=== PATIENT | female | born 1960 | race Caucasian/White ===

== ENCOUNTER 2017-08-01 13:07 | Inpatient (IN) | payer MEDICARE ==
--- OUTSIDE RECORDS SUMMARY | 2017-08-01 13:10 | XMS REPORT | Clinical Summary ---
:1960 Author Organization [facility] Address [address] [place] [address] Care Team Providers Name Role Phone Angela Dee MD Primary Care Provider Allergies No Known Allergies Current Medications Prescription Sig. Disp. Refills Start Date End Date Status aspirin (ECOTRIN) 81 Take 81 mg by Active MG enteric coated mouth daily. tablet omeprazole Take 20 mg by Active (PriLOSEC) 20 MG mouth daily. capsule magnesium oxide Take 400 mg Active (MAG-OX) 400 mg by mouth tablet daily. albuterol (PROAIR Inhale 2 18 g 0 09/03/2016 Active HFA,PROVENTIL puffs every 6 HFA,VENTOLIN HFA) 90 (six) hours mcg/actuation as needed for inhaler wheezing. furosemide (LASIX) Take 1 tablet 60 tablet 11 09/03/2016 Active 40 mg tablet (40 mg total) 8 by mouth 2 (two) times a day. venlafaxine XR Take 1 6 capsule 0 09/17/2016 Active (EFFEXOR-XR) 150 MG capsule (150 24 hr mg total) by capsuleIndications: mouth daily. Heart failure, unspecified heart failure chronicity, unspecified heart failure type sildenafil (REVATIO) Take 1 tablet 270 tablet 3 10/15/2016 Active 20 mg tablet (20 mg total) 8 by mouth 3 (three) times a day. budesonide-formotero Inhale 2 1 Inhaler 6 10/31/2016 Active l (SYMBICORT) puffs 2 (two) 160-4.5 times a day. mcg/actuation inhaler ELIQUIS 5 mg tablet TAKE 1 TABLET 60 tablet 2 01/13/2017 Active BY MOUTH TWICE A DAY pantoprazole Take 20 mg by Active (PROTONIX) 20 MG EC mouth daily. tablet LORATADINE (CLARITIN Take by Active ORAL) mouth. linaclotide Take 145 mcg Active (LINZESS) 145 mcg by mouth capsule daily before breakfast. furosemide (LASIX) Take 1 tablet 60 tablet 6 05/16/2017 Active 80 mg tablet (80 mg total) 9 by mouth 2 (two) times a day. venlafaxine XR Take 150 mg Discontinued (EFFEXOR-XR) 150 MG by mouth 7 24 hr capsule daily. budesonide-formotero Inhale 2 Discontinued l (SYMBICORT) puffs 2 (two) 7 160-4.5 times a day mcg/actuation as needed. inhaler albuterol (PROVENTIL Inhale 2 Discontinued HFA;VENTOLIN HFA) 90 puffs every 6 7 mcg/actuation (six) hours inhaler as needed for wheezing. spironolactone Take 4 30 tablet 11 06/15/2016 Discontinued (ALDACTONE) 25 MG tablets (100 7 tablet mg total) by mouth daily. acetaZOLAMIDE Take 250 mg 1 04/05/2016 Discontinued (DIAMOX) 250 MG by mouth once 7 tablet daily. losartan (COZAAR) 50 Take 50 mg by Discontinued MG tablet mouth daily. 7 furosemide (LASIX) Take 1 tablet 60 tablet 11 07/17/2016 Discontinued 40 mg tablet (40 mg total) 7 by mouth 2 (two) times a day. predniSONE Take 2.5 mg Discontinued (DELTASONE) 5 mg by mouth 7 tablet daily. furosemide (LASIX) Take 3 270 tablet 2 08/01/2016 Discontinued 20 mg tablet tablets (60 7 mg total) by mouth 3 (three) times a day for 30 days. hydrALAZINE Take 1 tablet 90 tablet 2 08/01/2016 Discontinued (APRESOLINE) 100 MG (100 mg 7 tablet total) by mouth every 8 (eight) hours for 30 days. isosorbide dinitrate Take 1 tablet 90 tablet 2 08/01/2016 Discontinued (ISORDIL) 20 MG (20 mg total) 7 tablet by mouth 3 (three) times a day for 30 days. potassium chloride Take 2 120 capsule 0 08/01/2016 Discontinued (MICRO-K) 10 MEQ CR capsules (20 7 capsule mEq total) by mouth 2 (two) times a day for 30 days. sacubitril-valsartan Take 1 tablet 60 tablet 2 08/01/2016 Discontinued (ENTRESTO) 24-26 mg by mouth 2 7 tablet per tablet (two) times a day for 30 days. furosemide (LASIX) Take 3 270 tablet 2 08/01/2016 Discontinued 20 mg tablet tablets (60 7 mg total) by mouth 2 (two) times a day for 30 days. venlafaxine XR Take 1 6 capsule 0 08/10/2016 Discontinued (EFFEXOR-XR) 150 MG capsule (150 7 24 hr capsule mg total) by mouth daily. apixaban (ELIQUIS) 5 Take 1 tablet 60 tablet 0 08/31/2016 Discontinued mg tablet (5 mg total) 7 by mouth 2 (two) times a day for 30 days. furosemide (LASIX) Take 1 tablet 30 tablet 0 08/28/2016 Discontinued 40 mg tablet (40 mg total) 7 by mouth daily for 30 days. spironolactone Take 1 tablet 30 tablet 0 08/28/2016 (ALDACTONE) 50 MG (50 mg total) 7 tablet by mouth daily for 30 days. sildenafil (REVATIO) Take 1 tablet 90 tablet 0 08/27/2016 Discontinued 20 mg tablet (20 mg total) 7 by mouth every 8 (eight) hours for 30 days. apixaban (ELIQUIS) 5 Take 1 tablet 60 tablet 0 08/31/2016 mg tablet (5 mg total) 7 by mouth 2 (two) times a day for 30 days. predniSONE Take 0.5 15 tablet 9 12/27/2016 (DELTASONE) 5 mg tablets (2.5 7 tablet mg total) by mouth daily for 30 days. amoxicillin-pot Take 1 tablet 28 tablet 0 03/16/2017 clavulanate by mouth 2 7 (AUGMENTIN) 875-125 (two) times a mg per tablet day for 14 days. furosemide (LASIX) Take 1 tablet 60 tablet 0 03/16/2017 Discontinued 80 mg tablet (80 mg total) 8 by mouth 2 (two) times a day. Active Problems Problem Noted Date Abdominal distension 03/16/2017 Overview: This is something new and has happened in the last couple two weeks She says it started with some knots appearing her her groin area and then increased with some redness on the upper mid thigh. Her belly also became big and now its big to an extent that its going to cause her distension and pain There is some associated erythema, which is blanching On exam: little warm to touch, but no actual skin break down Percussion note is dull in the lower abdomen Last Assessment & Plan: I am concerned she may have cellulitis of her belly. Its red with slight tenderness I am going to get CT abdomen and pelvis today If there is fluid, then it needs to be drained and she will have to stop her eliquis Will also check, cbc, cmp, bnp, UA and blood culture Sending her a prescription of augmentin 875 mg BID I have informed her, depending on her belly findings, I'll call her and decide if she needs to be admitted or not. She will come to ER if she needs any further intervention DVT (deep venous thrombosis) 09/23/2016 Overview: Recently diagnosed in August 2016 during the hospitalization Currently on eliquis 5 mg BID Last Assessment & Plan: She is taking eliquis No bleeding issues Will continue same Will continue it at least for six months Chronic diastolic heart failure 09/23/2016 Overview: Now stable BP is still high today Eating no salt diet Last Assessment & Plan: Need better BP control I would defer to Dr Peck Asked her to do BP charting and discuss with Dr Peck Chronic kidney disease, stage II (mild) 09/23/2016 Overview: Has likely diuretic induced kidney injury Seems to be recovering She will need some amount of lasix and aldactone Last Assessment & Plan: Renal condition is improving with treatment. Continue current treatment regimen. Fluid restriction. Weight loss. Monitor daily weight. Regular aerobic exercise. Stop smoking. Continue current medications. 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 This first presented as lung nodule which was followed for years. In 2011 she was referred to Dr Zurita at [facility]. She performed a RLL lobectomy. Biopsy confirmed carcinoid and also DIPNECH. Last Assessment & Plan: Currently stable, seeing oncologist locally in [place] and no interventions are planned at present Neuroendocrine neoplasm of lung 12/18/2015 Overview: Patient was diagnosed with DIPNECH, which may be the cause of her progressive obstructive lung function. She is taking inhalers and that is help. Last Assessment & Plan: Stable, need to continue surveillance follow up with oncologist Chronic respiratory failure with hypoxia 12/18/2015 Overview: On supplemental oxygen at 3L/min. Has documented hypercarbia as well but compensated. She has poor exercise capacity. Most of the time, she is just sitting. Not doing much activity In November 2015, she had sob and was admitted in a local hospital in [place] She was managed in lines with CHF with diuresis and CPAP support Last Assessment & Plan: Using CPAP, along with oxygen Will recommend to continue the same SANG on CPAP 12/01/2015 Overview: On CPAP at home. Using it religiously. She has been taking CPAP for years but I am not sure if the pressure settings are adequate. Not sure if worsening PH may be cause of the recent excerbation Last Assessment & Plan: Continue CPAP, will oxygen Will help with her BP and heart failure Pulmonary hypertension 12/01/2015 Overview: Complicated patient. Has DIPNECH, DHF and PH. She was extensively evaluated. She was seen by Dr Peck for DHF. She was last seen in September 2016. Right after hospitalization. She was intubated with resp failure and acute PE. Aggressively diuresed. Had mild PH with no gradient, Dr Peck suggested to add sildenafil. Sh kailee felt better after sildenafil. States that her breathing was better. She was supposed to have a repeat RHC close to October but then not followed up She is taking Sildenafil 20 mg TID. She says for the last couple of weeks she started having abdominal distension. Also noticed some lesions- knots coming in her thigh area, which became hard and warm t o touch. Her belly distension kept on getting worse. Went to see PCP who said its lymphedema and suggested her to do compression. She says she has marked edema and swelling in her legs and her private areas. Says she was not able to wear underwear because of the way it looks. She was told to see her launch check out. She has gained 35 lbs since her last visit She is on lasix 40 mg BID, aldactone 25 mg daily. She is also on eliquis since last August after the episode of acute PE. No fever, having chills. She is also having some cough, occasional phlegm. She says she has noticed redness on her belly and it feels warm to touch. Denies any diarrhea Below is her hemodynamics from her latest cath from August 2016 Last Assessment & Plan: She is actually doing better on Sildenafil. Tolerating it better and says her breathing is better. However, today she is short of breath due to massive distension of her belly. She is unsure why she has that. Her legs are not that swollen though. Regarding PH, will leave her alone on the same medications See below for abdominal distension She is having some cough as well, getting a CT Chest and also starting her on augmentin She needs to increase her lasix to 80 mg BID for now and see me back in 2 weeks Encounters Date Type Specialty Care Team Description 07/11/2017 Telephone Cardiology esther Conroy RN appointment 06/13/2017 Documentation Pulmonology Aristeo, faxed medical records CHERELLE Tipton 05/16/2017 Refill Pulmonology Chavo Cespedes MD 04/13/2017 Telephone Cardiology Helder, Prior Authorization SIA Quiñones 03/25/2017 Transcribe Orders Access Coy PHT (pulmonary hypertension) ( Primary Dx); MD Chavo Acute embolism and thrombosis of deep vein of right lower extremity; Obstructive sleep apnea syndrome 03/16/2017 Office Visit Pulmonology Coy Pulmonary hypertension (Primary Dx); MD Chavo Acute deep vein thrombosis (DVT) of right lower extremity, unspecified vein; SANG on CPAP; Abdominal distension 03/16/2017 Telephone Transplant Edson Barragan, Prior Authorization SIA 03/16/2017 Orders Only Pulmonology Haney, Chronic diastolic heart failure; SIA Hassan Pulmonary hypertension; Acute deep vein thrombosis (DVT) of right lower extremity, unspecified vein; SANG on CPAP; Chronic respiratory failure with hypoxia; Neuroendocrine neoplasm of lung; Chronic kidney disease, stage II (mild) 03/01/2017 Telephone Cardiology Bertrand Pendleton MA 01/12/2017 Refill Cardiology Shant Najera MD 12/27/2016 Orders Only Pulmonology Chavo Cespedes MD 11/10/2016 Orders Only Pulmonology Sonya Haney MA 11/05/2016 Telephone Pulmonology Trice Ariza MD 10/31/2016 Orders Only Pulmonology Chavo Cespedes MD 10/27/2016 Orders Only Pulmonology Kvng Haney MA hypertension (Primary Dx) 10/18/2016 Telephone Cardiology Liv Med Reffahad Osuna MD (Spironolactone 50 mg ) 10/13/2016 Telephone Pulmonology Roney Wilson, CHERELLE 10/01/2016 Refill Cardiothoracic Yury Heredia MD 10/01/2016 Orders Only Pulmonology Kvng Cespedes MD hypertension (Primary Dx) 09/23/2016 Office Visit Pulmonology Coy Pulmonary hypertension (Primary Dx); MD Chavo Acute deep vein thrombosis (DVT) of right lower extremity, unspecified vein; Chronic respiratory failure with hypoxia; Neuroendocrine neoplasm of lung; Chronic diastolic heart failure; SANG on CPAP; Chronic kidney disease, stage II (mild) 09/17/2016 Office Visit Cardiology Kvng Peck hypertension (Primary Dx ); MD Thao Chronic diastolic heart failure; SANG on CPAP 09/17/2016 Telephone Cardiology Marciano Gordon MD 09/16/2016 Documentation Cardiology Prior Laurence Keating (Eliquis) VICTOR HUGO Kline 09/10/2016 Orders Only Pulmonology Saeed Alberts, CHERELLE 09/03/2016 Office Visit Cardiology Pulmonary hypertension; Chronic diastolic heart failure 09/03/2016 Hospital Encounter Transplant Opal Small on chronic MD Jorge diastolic heart failure 09/03/2016 Documentation Cardiology Prior Laurence Keating LVN (Sildenafil ) 09/03/2016 Orders Only Pulmonology Rajtak SOB (shortness of Cooper, breath) (Primary Dx) Afsaneh, RT 09/01/2016 Refill Cardiothoracic Yury Heredia Surgery MD Jonnathan 09/01/2016 Documentation Cardiology Shant Keating Refill Eliud, [employer] SERVICES 09/01/2016 Orders Only Cardiology Martha, Opal on chronic CHERELLE Parson diastolic heart failure (Primary Dx) 08/31/2016 Refill Cardiothoracic Yury Herdeia MD 08/27/2016 Patient Outreach Quality Sharon Tejeda RN 08/19/2016 Procedure Pass Procedural Cardiology 08/19/2016 Surgery Procedural Cardiology Marciano Gordon right heart cath MD Brandon [[id number] (CPT)] 08/18/2016 Hospital Encounter Cardiology Marciano Gordon Pulmonary - MD Brandon hypertension (Primary 08/27/2016 Dx) 08/10/2016 Refill Pulmonology Eliud Keating, COORDIN[employer] REHABILITATION SERVICES 08/09/2016 Orders Only Transplant Creamer, Chronic diastolic CHERELLE Pack heart failure (Primary Dx) 08/01/2016 Patient Outreach Quality Nusrat Ng RN 07/27/2016 Hospital Encounter Cardiology Kvng Peck - MD Thao hypertension 08/01/2016 Temo Najera MD after 07/31/2016 Immunizations Name Dates Previously Given Next Due Pneumococcal Conjugate 13-Valent 08/01/2016 Family History Medical History Relation Name Comments Lung cancer Brother Emphysema Father Cancer Paternal Aunt Anuerysm Sister Breast cancer Sister Relation Name Status Comments Brother Father Mother Alive Paternal Aunt Sister Social History Tobacco Use Types Packs/Day Years Used Date Never Smoker Alcohol Use Drinks/Week oz/Week Comments No Sex Assigned at Date Recorded Not on file Last Filed Vital Signs Vital Sign Reading Time Taken Blood Pressure 149/69 03/16/2017 9:32 AM [employer] Pulse 110 03/16/2017 9:32 AM [employer] Temperature 36.6 C (97.8 F) 03/16/2017 9:32 AM [employer] Respiratory Rate 12 09/23/2016 11:28 AM CDT Oxygen Saturation 82% 03/16/2017 9:32 AM [employer] Inhaled Oxygen Concentration - - Weight 169 kg (373 lb) 03/16/2017 9:32 AM [employer] Height 157.5 cm (5' 2") 03/16/2017 9:32 AM [employer] Body Mass Index 68.22 03/16/2017 9:32 AM [employer] Plan of Treatment Date Type Specialty Care Team Description 11/11/2017 Office Visit Cardiology Thao Peck MD [address], [address] [place] [address] Health Maintenance Due Date Last Done Comments PAP SMEAR 1981 COLONOSCOPY 2010 MAMMOGRAM 2010 INFLUENZA VACCINE 12/07/2016 02/27/2015, 02/14/2014, 03/06/2013 Procedures Procedure Name Priority Date/Time Associated Comments Diagnosis CV RIGHT HEART CATH Routine 08/19/2016 6:14 Results for this PM CDT procedure are in the results section. ECHOCARDIOGRAM 2D STAT 08/19/2016 8:41 Results for this LIMITED AM CDT procedure are in the results section. after 07/31/2016 Results Urinalysis screen and microscopy, with reflex to culture (03/16/2017 12:56 PM) Only the most recent of2 resultswithin the time period is included. Component Value Ref Range Specimen site Clean catch Color, UA Yellow Appearance, UA Cloudy Specific gravity, UA 1.020 1.001 - 1.035 pH, UA 6.0 5.0 - 8.5 Protein, UA 2+ (A) Negative Glucose, UA Negative Negative Ketones, UA Negative Negative Bilirubin, UA Negative Negative Blood, UA Negative Negative Nitrite, UA Negative Negative Urobilinogen, UA <2.0 <2.0 Leukocyte esterase, UA Large (A) Negative Epithelial cells, UA >20 /HPF WBC, UA 2 0 - 4 /HPF RBC, UA 43 (H) 0 - 2 /HPF Bacteria, UA Few None seen Yeast, UA Moderate (A) Yeast with pseudohyphae, UA None seen Hyaline casts, UA 12 /LPF Specimen Performing Laboratory Urine [facility] DEPARTMENT OF PATHOLOGY AND GENOMIC MEDICINE [address] [place] [id number] Gram stain (03/16/2017 12:56 PM)Only the most recent of2 resultswithin the time period is included. Component Value Ref Range Gram stain result Rare WBC's Few Budding yeast, pseudohyphae present Many Gram positive rods Comment: Specimen Information Specimen Source: Urine Specimen Site: See UA Specimen Performing Laboratory Urine [facility] DEPARTMENT OF PATHOLOGY AND GENOMIC MEDICINE [address] [place] [address]. [place] [address] Urine culture (03/16/2017 12:56 PM)Only the most recent of2 resultswithin the time period is included. Component Value Ref Range Urine culture isolate Gram negative rods 10-1 cfu/ml (A) Comment: Specimen Information Specimen Source: Urine Specimen Site: See UA Urine culture isolate Mixed Gram positive germania >10-5 cfu/ml (A) Specimen Performing Laboratory Urine [facility] DEPARTMENT OF PATHOLOGY AND [address] [address] Smear review (03/16/2017 10:52 AM) Component Value Ref Range Platelet slide review Facundo adequate Anisocytosis Moderate Polychromasia Moderate Spherocytes Occasional Ovalocytes Moderate Enlarged platelets Moderate (A) Giant platelets Occasional Specimen Performing Laboratory [facility] PATHOLOGY [address] [address] Narrative CO2 result called to and read back by Anita Arteaga/[facility] 03/16/201713:12 by CK. Estimated GFR (03/16/2017 10:52 AM)Only the most recent of15 resultswithin the time period is included. Component Value Ref Range GFR Non Af Amer 57 (A) mL/min/1.73 m2 GFR Af Amer 69 mL/min/1.73 m2 Comment: Chronic kidney disease: <60 mL/min/1.73m2 Kidney failure: <15 mL/min/1.73m2 The estimated GFR is calculated from the IDMS-traceable Modification of Diet in Renal Disease Equation. The accuracy of the calculation is poor when the creatinine is normal. Calculated values >90 mL/min/1.73m2 are not reported. This equation has not been validated in children (<18 years), women, the elderly (>70 years), or ethnic groups other than Caucasians and Americans. Specimen Performing Laboratory Plasma specimen [facility] DEPARTMENT OF PATHOLOGY AND [address] [address] Sedimentation rate (03/16/2017 10:52 AM) Component Value Ref Range Sedimentation rate 17 0 - 20 mm/hr Specimen Performing Laboratory Blood [facility] OF PATHOLOGY AND [facility] MEDICINE [address] [place] [address] Narrative CO2 result called to and read back by Anita Arteaga/[facility] 03/16/201713:12 by CK. CBC with platelet and differential (03/16/2017 10:52 AM)Only the most recent of11 resultswithin the time period is included. Component Value Ref Range WBC 8.01 4.50 - 11.00 k/uL RBC 4.12 (L) 4.20 - 5.50 m/uL HGB 8.4 (L) 12.0 - 16.0 g/dL HCT 31.0 (L) 37.0 - 47.0 % MCV 75.2 (L) 82.0 - 100.0 fL MCH 20.4 (L) 27.0 - 34.0 pg MCHC 27.1 (L) 31.0 - 37.0 g/dL RDW - SD 49.5 37.0 - 55.0 fL MPV 10.6 8.8 - 13.2 fL Platelet count 233 150 - 400 k/uL Nucleated RBC 0.00 /100 WBC Neutrophils 76.3 (H) 39.0 - 69.0 % Lymphocytes 9.6 (L) 25.0 - 45.0 % Monocytes 10.6 (H) 0.0 - 10.0 % Eosinophils 2.4 0.0 - 5.0 % Basophils 0.5 0.0 - 1.0 % Immature granulocytes 0.6Comment: "Immature granulocytes" 0.0 - 1.0 % (promyelocytes, myelocytes, metamyelocytes) Specimen Performing Laboratory Blood [facility] DEPARTMENT OF PATHOLOGY AND GENOMIC MEDICINE [address] [place] [address] B natriuretic peptide (03/16/2017 10:52 AM)Only the most recent of3 resultswithin the time period is included. Component Value Ref Range BNP 432 (H) 0 - 100 pg/mL Specimen Performing Laboratory Blood [facility] DEPARTMENT OF PATHOLOGY AND GENOMIC MEDICINE [address] [place] [address] Narrative CO2 result called to and read back by Anita Arteaga/[facility] Lung [place] 03/16/201713:12 by CK. Magnesium level (03/16/2017 10:52 AM)Only the most recent of14 resultswithin the time period is included. Component Value Ref Range Magnesium 1.3 (L) 1.6 - 2.6 mg/dL Specimen Performing Laboratory Plasma specimen [facility] DEPARTMENT OF PATHOLOGY AND GENOMIC MEDICINE [address] [place] [address] Comprehensive metabolic panel (03/16/2017 10:52 AM)Only the most recent of3 resultswithin the time period is included. Component Value Ref Range Sodium 141 135 - 148 mEq/L Potassium 3.2 (L) 3.5 - 5.0 mEq/L Chloride 88 (L) 98 - 112 mEq/L CO2 44 (HH) 24 - 31 mEq/L Anion gap 9 7 - 15 mEq/L Comment: Starting from August , anion gap calculation no longer incorporates potassium. Please note the change. BUN 23 (H) 6 - 20 mg/dL Creatinine 1.0 (H) 0.5 - 0.9 mg/dL Glucose 123 (H) 65 - 99 mg/dL Calcium 8.9 8.3 - 10.2 mg/dL Protein 6.7 6.3 - 8.3 g/dL Comment: [place] 4.6-7.0 g/dL 1 week 4.4-7.6 g/dL 7 months-1year5.1-7.3 g/dL 1-2 years5.6-7.5 g/dL >3 years6.0-8.0 g/dL 18-150 6.3-8.3 g/dL Albumin 3.1 (L) 3.5 - 5.0 g/dL A/G ratio 0.9 0.7 - 3.8 Alkaline phosphatase 97 35 - 104 U/L AST 22 10 - 35 U/L ALT 16 5 - 50 U/L Total bilirubin 0.5 0.0 - 1.2 mg/dL Specimen Performing Laboratory Plasma specimen [facility] DEPARTMENT OF PATHOLOGY AND GENOMIC MEDICINE [address] [place] [id number] Basic metabolic panel (09/15/2016 9:37 AM)Only the most recent of13 resultswithin the time period is included. Component Value Ref Range Glucose 150 (H) 65 - 99 mg/dL Comment: Fasting reference interval For someone without known diabetes, a glucose value >125 mg/dL indicates that they may have diabetes and this should be confirmed with a follow-up test. BUN, whole blood 16 7 - 25 mg/dL Creatinine 1.05 0.50 - 1.05 mg/dL Comment: For patients >49 years of age, the reference limit for Creatinine is approximately 13% higher for people identified as -Palauan. EGFR Non-Afr. [place] 60 > OR=60 mL/min/1.73m2 EGFR 69 > OR=60 mL/min/1.73m2 BUN/creatinine ratio NOT APPLICABLE 6 - 22 (calc) Sodium 142 135 - 146 mmol/L Potassium 3.8 3.5 - 5.3 mmol/L Chloride 92 (L) 98 - 110 mmol/L CO2 44 (H) 20 - 31 mmol/L Calcium 9.3 8.6 - 10.4 mg/dL Specimen Performing Laboratory Blood [facility] Narrative FASTING:YES Cardiac MRI heart fx only noncontrast (08/27/2016 2:32 PM) Specimen Performing Laboratory [facility] [address] [place] [address] Narrative [facility] CMR Report Patient Patient Name: ADOLPH MORTENSEN Patient : 1960 Scan Date:2016-08-27 13:24:03 Finalized and signed by Lenard Weaver M.D. (uid:20) 22:05: 04. SUMMARY ====== ======== CMR study aborted early by the patient due to worsening of shortness of breath. However, the following observations can be made: 1.Normal cardiac chamber sizes. Systolic and diastolic septal flattening consistent with RV pressure and volume overload. 2.Normal LV and severely depressed RV systolic function(LVEF 55%, RVEF 23%). 3.NO delayed enhancement imaging performed (no contrast given due to renal failure) 4.Valves assessment not performed. 5.Thoracic aorta is of normal caliber without aneurysm or dissection. Dilated main PA (3.4 cm), RPA (2.2 cm), LPA (2.4 cm) consistent with pulmonary hypertension. CORE EXAM ====== ======== MEASUREMENTS VOLUMETRIC ANALYSIS . . || LV| Reference| RV | Reference| +------+ + + + + | EDV| 147.7 ml|(134-215) | 182.4 ml |(127-215) | | ESV| 65.6 ml |(33-79) | 138.9 ml |(26-88) | | CO | 12.48 L/min || 6.61 L/min || | MASS | 95.9 g|(115-186) ||| | SV | 82.1 ml |(88-148)| 43.5 ml|(86-143)| | EF | 55.59 % |(141-184) | 23.85 %|(131-189) | '------+ + + + ' HEART RATE:152 bpm LV DIMENSIONS WALL THICKNESS - ANTEROSEPTAL:0.8 cm WALL THICKNESS - INFEROLATERAL:0.7 cm LV SAFIA:5.1 cm LV ESD:3.6 cm LA DIMENSIONS (LV SYSTOLE) DIAMETER:4.6 cm AREA - 2 CHAMBER:26 cm^2 LENGTH - 2 CHAMBER:6.6 cm AREA - 4 CHAMBER:28 cm^2 LENGTH - 4 CHAMBER:6 cm VOLUME:103.13 ml AORTIC ROOT DIMENSIONS DIAMETER - ANNULUS:1.8 cm DIAMETER - SINUS OF VALSALVA:3 cm DIAMETER - SINOTUBULAR JUNCTION:2.1 cm AORTIC ROOT SIZE:Normal CONDENSED SUMMARY LV:Normal Wall Thickness. Cavity Size is Normal. No Mass/Thrombus. RV:Normal Wall Thickness. Contractility is SEVERE GLOBALLY DECREASED. Cavity Size is Normal. No Mass/Thrombus. No Pacemaker/Defibrillator Wire. IVS:DIASTOLIC FLATTENING (RV VOLUME OVERLOAD), SYSTOLIC FLATTENING (RV PRESSURE OVERLOAD). LA:Cavity Size is Normal. No Mass/Thrombus. IAS:LIPOMATOUS HYPERTROPHY. RA:Cavity Size is Normal. No Mass/Thrombus. No Additional Findings. No Pacemaker/Defibrillator Wire. PER:Normal Pericardium. No Effusion. 17 SEGMENT . ------ ------. | LV Segments| Wall Motion| Hyperenhancement | Stress Perfusion | Interpretation | + + + + +---- ------ ------+ | Base Anterior| Normal/Hyper ||| | | Base Anteroseptal| Normal/Hyper ||| | | Base Inferoseptal| Normal/Hyper ||| | | Base Inferior| Normal/Hyper ||| | | Base Inferolateral | Normal/Hyper ||| | | Base Anterolateral | Normal/Hyper ||| | | Mid Anterior | Normal/Hyper ||| | | Mid Anteroseptal | Normal/Hyper ||| | | Mid Inferoseptal | Normal/Hyper ||| | | Mid Inferior | Normal/Hyper ||| | | Mid Inferolateral| Normal/Hyper ||| | | Mid Anterolateral| Normal/Hyper ||| | | Apical Anterior| Normal/Hyper ||| | | Apical Septal| Normal/Hyper ||| | | Apical Inferior| Normal/Hyper ||| | | Apical Lateral | Normal/Hyper ||| | | [place] | Normal/Hyper ||| | + + + + +---- ------ ------+ | RV Segments| Wall Motion| Hyperenhancement | Stress Perfusion | Interpretation | + + + + +---- ------ ------+ | RV Basal Anterior| Severe Hypo|| | | | RV Basal Inferior| Severe Hypo|| | | | RV Mid | Severe Hypo|| | | | RV Apical| Severe Hypo|| | | ' + + + +---- ------ ------' VASCULAR ====== ======== SCAN INFO ====== ======== GENERAL SEDATION SEDATION USED?:No CONTRAST AGENT SERUM CREATININE:1.6 sCr GFR:35.57 ml/min/1.73m^2 FEMALE:Yes OR BLACK:No CREATININE DATE:2016-08-27 00:00:00 FERAHEME ADMINISTERED:90 mg LAB RESULT HEMATOCRIT LEVEL:33.7 % HEMATOCRIT DATE:2016-08-27 00:00:00 VITALS HEIGHT:62 in HEIGHT:157.48 cm BODY WEIGHT:339.6 lbs BODY WEIGHT:154.04 kgs BSA::2.39 m^2 SYSTOLIC BP:149 mmHg DIASTOLIC BP:68 mmHg HEART RATE:107 BPM HEART RHYTHM:Other DESCRIBE HEART RHYTHM::Sinus Tachycardia SETUP TYPE:Clinical INPATIENT:Yes LOCATION:[facility] INCOMPLETE SCAN:Yes REASON FOR INCOMPLETE SCAN:Patient not able to complete scan REASON(S) FOR SCAN:Abnormal Echo REFERRING PHYSICIAN:1) Marciano Gordon M.D.ATTENDING PHYSICIAN:Lenard Weaver MD TECHNOLOGIST:Graham Tate RT ASSISTANTS:1) Aretha POWELL 2) Preston Bowens 3) Ismael GAMBLE Patient Account [id number] CPT Codes 54886 ICD10 Codes I42.9, [ , ]R00.0, [ , ]R06.00 Procedure Note Interface, Radiology Results In - 08/27/2016 10:06 PM CDT [facility] CMR Report Patient Patient Name: ADOLPH MORTENSEN Patient : 1960 Scan Date: 2016-08-27 13:24:03 Finalized and signed by Lenard Weaver M.D. (uid:20) 22:05:04. SUMMARY CMR study aborted early by the patient due to worsening of shortness of breath. However, the following observations can be made: 1. Normal cardiac chamber sizes. Systolic and diastolic septal flattening consistent with RV pressure and volume overload. 2. Normal LV and severely depressed RV systolic function (LVEF 55%, RVEF 23%) . 3. NO delayed enhancement imaging performed (no contrast given due to renal failure) 4. Valves assessment not performed. 5. Thoracic aorta is of normal caliber without aneurysm or dissection. Dilated main PA (3.4 cm), RPA (2.2 cm), LPA (2.4 cm) consistent with pulmonary hypertension. CORE EXAM MEASUREMENTS VOLUMETRIC ANALYSIS . . | | LV | Reference | RV | Reference | +------+ + + + + | EDV | 147.7 ml | (134-215) | 182.4 ml | (127-215) | | ESV | 65.6 ml | (33-79) | 138.9 ml | (26-88) | | CO | 12.48 L/min | | 6.61 L/min | | | MASS | 95.9 g | (115-186) | | | | SV | 82.1 ml | (88-148) | 43.5 ml | (86-143) | | EF | 55.59 % | (141-184) | 23.85 % | (131-189) | '------+ + + + ' HEART RATE: 152 bpm LV DIMENSIONS WALL THICKNESS - ANTEROSEPTAL: 0.8 cm WALL THICKNESS - INFEROLATERAL: 0.7 cm LV SAFIA: 5.1 cm LV ESD: 3.6 cm LA DIMENSIONS (LV SYSTOLE) DIAMETER: 4.6 cm AREA - 2 CHAMBER: 26 cm^2 LENGTH - 2 CHAMBER: 6.6 cm AREA - 4 CHAMBER: 28 cm^2 LENGTH - 4 CHAMBER: 6 cm VOLUME: 103.13 ml AORTIC ROOT DIMENSIONS DIAMETER - ANNULUS: 1.8 cm DIAMETER - SINUS OF VALSALVA: 3 cm DIAMETER - SINOTUBULAR JUNCTION: 2.1 cm AORTIC ROOT SIZE: Normal CONDENSED SUMMARY LV:Normal Wall Thickness. Cavity Size is Normal. No Mass/Thrombus. RV:Normal Wall Thickness. Contractility is SEVERE GLOBALLY DECREASED. Cavity Size is Normal. No Mass/Thrombus. No Pacemaker/Defibrillator Wire. IVS:DIASTOLIC FLATTENING (RV VOLUME OVERLOAD), SYSTOLIC FLATTENING (RV PRESSURE OVERLOAD). LA:Cavity Size is Normal. No Mass/Thrombus. IAS:LIPOMATOUS HYPERTROPHY. RA:Cavity Size is Normal. No Mass/Thrombus. No Additional Findings. No Pacemaker/Defibrillator Wire. PER:Normal Pericardium. No Effusion. 17 SEGMENT . . | LV Segments | Wall Motion | Hyperenhancement | Stress Perfusion | Interpretation | + + + + +---- + | Base Anterior | Normal/Hyper | | | | | Base Anteroseptal | Normal/Hyper | | | | | Base Inferoseptal | Normal/Hyper | | | | | Base Inferior | Normal/Hyper | | | | | Base Inferolateral | Normal/Hyper | | | | | Base Anterolateral | Normal/Hyper | | | | | Mid Anterior | Normal/Hyper | | | | | Mid Anteroseptal | Normal/Hyper | | | | | Mid Inferoseptal | Normal/Hyper | | | | | Mid Inferior | Normal/Hyper | | | | | Mid Inferolateral | Normal/Hyper | | | | | Mid Anterolateral | Normal/Hyper | | | | | Apical Anterior | Normal/Hyper | | | | | Apical Septal | Normal/Hyper | | | | | Apical Inferior | Normal/Hyper | | | | | Apical Lateral | Normal/Hyper | | | | | [place] | Normal/Hyper | | | | + + + + +---- + | RV Segments | Wall Motion | Hyperenhancement | Stress Perfusion | Interpretation | + + + + +---- + | RV Basal Anterior | Severe Hypo | | | | | RV Basal Inferior | Severe Hypo | | | | | RV Mid | Severe Hypo | | | | | RV Apical | Severe Hypo | | | | ' + + + +---- ' VASCULAR SCAN INFO GENERAL SEDATION SEDATION USED?: No CONTRAST AGENT SERUM CREATININE: 1.6 sCr GFR: 35.57 ml/min/1.73m^2 FEMALE: Yes OR BLACK: No CREATININE DATE: 2016-08-27 00:00:00 ALEJO ADMINISTERED: 90 mg LAB RESULT HEMATOCRIT LEVEL: 33.7 % HEMATOCRIT DATE: 2016-08-27 00:00:00 VITALS HEIGHT: 62 in HEIGHT: 157.48 cm BODY WEIGHT: 339.6 lbs BODY WEIGHT: 154.04 kgs BSA:: 2.39 m^2 SYSTOLIC BP: 149 mmHg DIASTOLIC BP: 68 mmHg HEART RATE: 107 BPM HEART RHYTHM: Other DESCRIBE HEART RHYTHM:: Sinus Tachycardia SETUP TYPE: Clinical INPATIENT: Yes LOCATION: [facility] INCOMPLETE SCAN: Yes REASON FOR INCOMPLETE SCAN: Patient not able to complete scan REASON(S) FOR SCAN: Abnormal Echo REFERRING PHYSICIAN: 1) Marciano Gordon M.D. ATTENDING PHYSICIAN : Lenard Weaver MD TECHNOLOGIST: Graham Tate RT ASSISTANTS: 1) Aretha POWELL 2) Preston Bowens 3) Ismael Crump MD BILLING Patient Account [id number] CPT Codes 45511 ICD10 Codes I42.9, [ , ]R00.0, [ , ]R06.00 POC glucose (08/27/2016 11:17 AM)Only the most recent of36 resultswithin the time period is included. Component Value Ref Range POC glucose 127 (H) 65 - 99 mg/dL Comment: [facility] Notified RN Meter ID: [id number] Word Processor: Jazmine Clayton Specimen Performing Laboratory [facility] DEPARTMENT OF PATHOLOGY AND GENOMIC MEDICINE [address] [place] [address] Prothrombin time with INR (08/24/2016 11:30 AM)Only the most recent of2 resultswithin the time period is included. Component Value Ref Range Prothrombin time 13.2 12.0 - 15.0 sec INR 1.0 Comment: The International Normalized Ratio (INR) is a therapeutic monitoring tool for patients who are stable on oral anticoagulant therapy. An INR of 2.0-3.0 is suggested for deep vein thrombosis/pulmonary embolism. Specimen Performing Laboratory Blood [facility] DEPARTMENT OF PATHOLOGY AND GENOMIC MEDICINE [address] [place] [address] Anti Xa, unfractionated (08/24/2016 11:30 AM)Only the most recent of8 resultswithin the time period is included. Component Value Ref Range Anti Xa, unfractionated 0.20 (L)Comment: Therapeutic Range: 0.30 - 0.30 - 0.70 U/mL 0.70 U/mL Specimen Performing Laboratory Blood [facility] DEPARTMENT OF PATHOLOGY AND [address] [address] XR Chest 1 Vw Portable (08/24/2016 10:59 AM)Only the most recent of5 resultswithin the time period is included. Specimen [facility] [address] [place] [address] Narrative EXAMINATION:XR CHEST 1 VW PORTABLE CLINICAL HISTORY:Pneumonia COMPARISON:August 21 IMPRESSION: Cardiomegaly Atelectasis in the lung bases. Degenerative changes are present throughout the bony structures without evidence of a suspicious focal lesion. Support lines of been removed [facility]-[id number] Procedure Note Hm Interface, Radiology Results Incoming - 08/24/2016 1:38 PM CDT EXAMINATION: XR CHEST 1 VW PORTABLE CLINICAL HISTORY: Pneumonia COMPARISON: August 21 IMPRESSION: Cardiomegaly Atelectasis in the lung bases. Degenerative changes are present throughout the bony structures without evidence of a suspicious focal lesion. Support lines of been removed [facility]-[id number] Urinalysis, automated with microscopy (08/23/2016 2:00 PM) Component Value Ref Range Color, UA Yellow Appearance, UA Cloudy Specific gravity, UA 1.012 1.001 - 1.035 pH, UA 5.0 5.0 - 8.5 Protein, UA 1+ (A) Negative Glucose, UA Negative Negative Ketones, UA Negative Negative Bilirubin, UA Negative Negative Blood, UA Large (A) Negative Nitrite, UA Negative Negative Urobilinogen, UA <2.0 <2.0 Leukocyte esterase, UA Moderate (A) Negative Epithelial cells, UA 16 /HPF WBC, UA 18 (H) 0 - 4 /HPF RBC, UA >180 (H) 0 - 2 /HPF Bacteria, UA Moderate (A) None seen Hyaline casts, UA 5 /LPF Yeast, UA None seen Yeast with pseudohyphae, UA None seen Specimen Performing Laboratory Urine [facility] DEPARTMENT OF PATHOLOGY AND [address] [address] Potassium, syringe (08/23/2016 1:28 PM) Component Value Ref Range Potassium, syringe 3.7 3.5 - 5.0 mEq/L Specimen Performing Laboratory Blood [facility] DEPARTMENT OF PATHOLOGY [address] [address] Venous blood gas (08/23/2016 1:28 PM) Component Value Ref Range pH, venous 7.33 7.32 - 7.42 pCO2, venous 77 (H) 45 - 51 mmHg pO2, venous 45 (H) 25 - 40 mmHg Base excess, venous 11 (H) -2 - 2 meq/L O2 saturation, venous 73 (H) 40 - 70 % Bicarbonate, venous 39.0 (H) 21.0 - 28.0 mmol/L Specimen Performing Laboratory Blood [facility] DEPARTMENT OF PATHOLOGY [facility] [address] [place] [address] O2 saturation, venous (08/23/2016 5:09 AM)Only the most recent of3 resultswithin the time period is included. Component Value Ref Range Hemoglobin, venous, syringe 10.3 (L) 12.0 - 16.0 g/dL O2 saturation, venous 64 40 - 70 % Specimen Performing Laboratory Blood [facility] DEPARTMENT OF PATHOLOGY AND [facility] [address] [place] [address] Phosphorus level (08/23/2016 4:00 AM)Only the most recent of6 resultswithin the time period is included. Component Value Ref Range Phosphorus 5.1 (H) 2.4 - 4.5 mg/dL Specimen Performing Laboratory Plasma specimen [facility] DEPARTMENT OF PATHOLOGY AND [address] [address] Ionized calcium (08/23/2016 4:00 AM)Only the most recent of5 resultswithin the time period is included. Component Value Ref Range pH 7.59 Ionized calcium 1.10 (L) 1.11 - 1.32 mmol/L Specimen Performing Laboratory Plasma specimen [facility] DEPARTMENT OF PATHOLOGY AND GENOMIC MEDICINE [address] [place] [address] Vancomycin level, random (08/22/2016 11:39 AM) Component Value Ref Range Vancomycin, random 21.5 ug/mL Specimen Performing Laboratory Serum [facility] DEPARTMENT OF PATHOLOGY AND [facility] [address] [place] [address] Arterial blood gas (08/22/2016 5:15 AM)Only the most recent of15 resultswithin the time period is included. Component Value Ref Range pH, arterial 7.45 7.35 - 7.45 Comment: __ABG results called to and read back by MATILDE LOPEZ(name/location ) at _ 08/22/201605:50 __ (date/time) by DAMON_. pCO2, arterial 61 (HH) 35 - 45 mmHg pO2, arterial 103 (H) 80 - 90 mmHg Bicarbonate, arterial 41.4 (H) 21.0 - 28.0 mmol/L Base excess, arterial 15 (H) -2 - 2 mEq/L O2 saturation, arterial 98 95 - 100 % Specimen Performing Laboratory Blood [facility] DEPARTMENT OF PATHOLOGY AND [facility] [address] [place] [address] Vancomycin level, trough (08/21/2016 8:55 PM)Only the most recent of2 resultswithin the time period is included. Component Value Ref Range Vancomycin, trough 29.8 (HH) 10.0 - 20.0 ug/mL Comment: Therapeutic Ranges: Peak 30.0 - 40.0 ug/mL Wjctmx04.0 - 20.0 ug/mL Specimen Performing Laboratory Serum [facility] DEPARTMENT OF PATHOLOGY AND [facility] [address] [place] [address] Partial thromboplastin time, activated (08/21/2016 7:55 PM)Only the most recent of2 resultswithin the time period is included. Component Value Ref Range PTT 46.4 (H) 23.0 - 36.0 sec Comment: PTT therapeutic range for unfractionated heparin is 61.0-112.0 seconds which corresponds to Anti-Xa 0.3-0.7 U/ml. Specimen Performing Laboratory Blood [facility] DEPARTMENT OF PATHOLOGY AND [facility] [address] [place] [address] Ionized calcium, arterial (08/21/2016 3:45 PM) Component Value Ref Range Ionized calcium, arterial 1.07 (L) 1.11 - 1.32 mmol/L Specimen Performing Laboratory Blood [facility] DEPARTMENT OF PATHOLOGY AND [facility] [address] [place] [address] Hemoglobin & hematocrit (08/20/2016 5:15 PM) Component Value Ref Range HGB 9.9 (L) 12.0 - 16.0 g/dL HCT 32.6 (L) 37.0 - 47.0 % Specimen Performing Laboratory Blood [facility] DEPARTMENT OF PATHOLOGY AND [facility] [address] [place] [address] Potassium level (08/20/2016 5:15 PM) Component Value Ref Range Potassium 3.9 3.5 - 5.0 mEq/L Specimen Performing Laboratory Plasma specimen [facility] DEPARTMENT PATHOLOGY AND [address] [address] Lactic acid level (08/20/2016 5:15 PM)Only the most recent of2 resultswithin the time period is included. Component Value Ref Range Lactic acid 1.0 0.5 - 2.2 mmol/L Specimen Performing Laboratory Plasma specimen [facility] DEPARTMENT OF PATHOLOGY AND [address] [address] NM Lung Ventilation Perfusion (08/20/2016 4:00 PM) Specimen Performing Laboratory [facility] [address] [place] [address] Narrative PROCEDURE:NM LUNG VENTILATION PERFUSION INDICATION:Shortness of breath. COMPARISON:Portable chest xray dated same day at 0447. TECHNIQUE:Planar ventilation images were acquired after the inhalation of 15 mCi of Xe-133 gas. Planar perfusion images were acquired after the IV adminstration of 5 mCi of Tc-99m MAA. FINDINGS:Ventilation images demonstrate decreased ventilation to the lung periphery and bases. Washout images demonstrate basilar gas trapping.Perfusion images demonstrate moderate to large defects in both lungs, matching the ventilation images.No mismatched defects.Chest xray performed earlier today did not show a confluent infiltrate. IMPRESSION: 1.Low probability for PE. [facility]-[id number] Procedure Note Interface, Radiology Results Incoming - 08/20/2016 4:57 PM CDT PROCEDURE: NM LUNG VENTILATION PERFUSION INDICATION: Shortness of breath. COMPARISON: Portable chest xray dated same day at 0447. TECHNIQUE: Planar ventilation images were acquired after the inhalation of 15 mCi of Xe-133 gas. Planar perfusion images were acquired after the IV adminstration of 5 mCi of Tc-99m MAA. FINDINGS: Ventilation images demonstrate decreased ventilation to the lung periphery and bases. Washout images demonstrate basilar gas trapping. Perfusion images demonstrate moderate to large defects in both lungs, matching the ventilation images. No mismatched defects. Chest xray performed earlier today did not show a confluent infiltrate. IMPRESSION: 1. Low probability for PE. [facility]-[id number] Sputum culture (08/19/2016 7:33 PM) Component Value Ref Range Sputum culture isolate Normal oral germania isolated. Comment: Specimen Information Specimen Source: Sputum Specimen Site: Induced Specimen Performing Laboratory Sputum - Induced [facility] DEPARTMENT OF PATHOLOGY AND GENOMIC MEDICINE [address] [place] [address] Cv cathead operator procedure (08/19/2016 6:14 PM) Specimen Performing Laboratory [facility] [address] [place] [address] Narrative Right heart filling pressure is mildly elevated. Wedge pressure is mildly elevated. Pulmonary hypertension is severe. Cardiac output is increased. XR Abdomen 1 Vw Portable (08/19/2016 5:01 PM) Specimen Performing Laboratory [facility] [address] [place] [address] Narrative EXAMINATION:XR ABDOMEN 1 VW PORTABLE CLINICAL HISTORY:Check feeding tube placement COMPARISON: FINDINGS: History: Check feeding tube placement AP supine abdomen: There is evidence for previous LAP-BAND which is in place. The feeding tube/nasogastric tube extends through the lap band and projects with its tip in the body of the stomach. The abdominal gas pattern is nonspecific. There is mild apparent basilar atelectasis. IMPRESSION: The nasogastric tube/feeding tube projects with its tip in the area of the body of the stomach [facility]-[id number] Procedure Note Interface, Radiology Results Incoming - 08/19/2016 6:39 PM CDT EXAMINATION: XR ABDOMEN 1 VW PORTABLE CLINICAL HISTORY: Check feeding tube placement COMPARISON: FINDINGS: History: Check feeding tube placement AP supine abdomen: There is evidence for previous LAP-BAND which is in place. The feeding tube/nasogastric tube extends through the lap band and projects with its tip in the body of the stomach. The abdominal gas pattern is nonspecific. There is mild apparent basilar atelectasis. IMPRESSION: The nasogastric tube/feeding tube projects with its tip in the area of the body of the stomach [id number] CT Angiogram Pe Chest (08/19/2016 4:08 PM) Specimen Performing Laboratory [facility] [address] [place] [address] Narrative EXAMINATION: CT ANGIOGRAM PE CHEST CLINICAL HISTORY: rule out pulmonary embolism TECHNIQUE:CT angiographic images of the chest were obtained during intravenous administration of iodinated contrast. Computerized reformatted images and 3-D MIP images were also obtained and archived (CT pulmonary embolus protocol). CT scans are performed using radiation dose reduction techniques. Technical factors are evaluated and adjusted to ensure appropriate moderation of exposure. Automated dose management technology is applied to adjust radiation exposure while achieving a diagnostic quality image. COMPARISON: None. FINDINGS: Examination is limited by patient body habitus. There are no incidental thyroid lesions. The endotracheal tube tip projects in the mid trachea. Nasogastric tube is positioned within the gastric lumen. The mainstem bronchi are normal in appearance. The heart is diffusely enlarged thoracic aorta is poorly visualized due to motion artifact, but does not appear aneurysmal. There is no evidence of dissection. The coronary arteries are well opacified centrally. The peripheral pulmonary arteries are poorly opacified due to patient and respiratory motion. There is no large central filling defect to suggest acute pulmonary thromboembolism. Pulmonary arteries are enlarged compatible with pulmonary arterial hypertension. The lungs have mosaic-attenuation throughout and focal left lower lobe consolidation. There are 3 right sided pulmonary nodules; the a right upper lobe pulmonary nodule (image 92 measures 4 mm. A right lower lobe pulmonary nodule measures 3 mm, and a right lower lobe pulmonary nodule measures 7 mm (image 168). Multiple additional centrilobular pulmonary nodules have developed (image 168, 162, for example), which may be sequela of prior infection/inflammation. There is no pleural effusion or pneumothorax. Review of bone window shows no evidence of destructive osseous lesion. Limited images of the upper abdomen demonstrate a lap band. There are no incidental lesions within the visualized portions of the spleen, pancreas, adrenals, or kidneys. IMPRESSION: 1. Limited examination due to patient body habitus and respiratory/patient motion. No central filling defect to suggest acute pulmonary thromboembolism. 2. Pulmonary arterial enlargement keeping with pulmonary arterial hypertension. Mosaic parenchymal attenuation is nonspecific, but may represent sequela of chronic embolic pulmonary hypertension versus small airways disease. 3. Increasing size of right pulmonary nodules, with the largest now measuring 7 mm (previously 4 mm). 2017 [employer] SOLID PULMONARY NODULE RECOMMENDATIONS MULTIPLE NODULES: (USE MOST SUSPICIOUS NODULE IS GUIDED TO MANAGEMENT. FOLLOW-UP INTERVALS MAY VERY ACCORDING TO SIZE AND RISK-RECOMMENDATION 2A): Nodule size: 6-8 mm *Low risk patients: CT at 3-[address] at 18-24 months. *High risk patients: CT at 3-6 months, then at 18-24 months. Low risk patients: *Minimal or absent history of smoking and/or other known risk factors High risk patients: *Greater than 20 [id number] history of smoking, or equivalent second hand exposure *Personal history of cancer or family history of lung cancer *Occupational exposure *Chronic interstitial/fibrotic lung disease [id number] Procedure Note Interface, Radiology Results Incoming - 08/19/2016 4:32 PM CDT EXAMINATION: CT ANGIOGRAM PE CHEST CLINICAL HISTORY: rule out pulmonary embolism TECHNIQUE: CT angiographic images of the chest were obtained during intravenous administration of iodinated contrast. Computerized reformatted images and 3-D MIP images were also obtained and archived (CT pulmonary embolus protocol). CT scans are performed using radiation dose reduction techniques. Technical factors are evaluated and adjusted to ensure appropriate moderation of exposure. Automated dose management technology is applied to adjust radiation exposure while achieving a diagnostic quality image. COMPARISON: None. FINDINGS: Examination is limited by patient body habitus. There are no incidental thyroid lesions. The endotracheal tube tip projects in the mid trachea. Nasogastric tube is positioned within the gastric lumen. The mainstem bronchi are normal in appearance. The heart is diffusely enlarged thoracic aorta is poorly visualized due to motion artifact, but does not appear aneurysmal. There is no evidence of dissection. The coronary arteries are well opacified centrally. The peripheral pulmonary arteries are poorly opacified due to patient and respiratory motion. There is no large central filling defect to suggest acute pulmonary thromboembolism. Pulmonary arteries are enlarged compatible with pulmonary arterial hypertension. The lungs have mosaic-attenuation throughout and focal left lower lobe consolidation. There are 3 right sided pulmonary nodules; the a right upper lobe pulmonary nodule (image 92 measures 4 mm. A right lower lobe pulmonary nodule measures 3 mm, and a right lower lobe pulmonary nodule measures 7 mm (image 168). Multiple additional centrilobular pulmonary nodules have developed (image 168, 162, for example), which may be sequela of prior infection/inflammation. There is no pleural effusion or pneumothorax. Review of bone window shows no evidence of destructive osseous lesion. Limited images of the upper abdomen demonstrate a lap band. There are no incidental lesions within the visualized portions of the spleen, pancreas, adrenals, or kidneys. IMPRESSION: 1. Limited examination due to patient body habitus and respiratory/patient motion. No central filling defect to suggest acute pulmonary thromboembolism. 2. Pulmonary arterial enlargement keeping with pulmonary arterial hypertension. Mosaic parenchymal attenuation is nonspecific, but may represent sequela of chronic embolic pulmonary hypertension versus small airways disease. 3. Increasing size of right pulmonary nodules, with the largest now measuring 7 mm (previously 4 mm). 2017 [employer] SOLID PULMONARY NODULE RECOMMENDATIONS MULTIPLE NODULES: (USE MOST SUSPICIOUS NODULE IS GUIDED TO MANAGEMENT. FOLLOW-UP INTERVALS MAY VERY ACCORDING TO SIZE AND RISK-RECOMMENDATION 2A): Nodule size: 6-8 mm *Low risk patients: CT at 3-[address] at 18-24 months. *High risk patients: CT at 3-6 months, then at 18-24 months. Low risk patients: *Minimal or absent history of smoking and/or other known risk factors High risk patients: *Greater than 20 cblr-aodv-taes history of smoking, or equivalent second hand exposure *Personal history of cancer or family history of lung cancer *Occupational exposure *Chronic interstitial/fibrotic lung disease [id number] PV duplex venous lower extremity bilat (08/19/2016 12:00 PM) Specimen Performing Laboratory [facility] [address] [place] [address] Narrative Vascular Ultrasound Laboratory Lower Extremity Venous Report [address] [place] [address] Pat.Name:ADOLPH MORTENSEN Pat.ID:[id number] St.Date: 08/19/2016 Refer.MD:MARCIANO GORDON MD Exam Time: 11:36:00 AM Study Type:LE Venous Height:62.5inWeight:351lb BSA: 2.44 m2 DOBAge:1960,55Y Sex: FEMALESonogrphr: Lisette Barroso RVT Pat. Stat.:Inpatient Room:[facility] TapeVol: MALENA, CPT - 4: 00619 Echo Event ID:[id number] Order ID:[id number] Reason for Study:Possible PE, Rule out DVT, Shortness of breath, Morbid obesity. Race:C SUMMARY: * Normal Reflux Criteria:< 0.5 seconds * Abnormal Reflux Criteria:> or equal to 0.5 seconds DUPLEX SCAN OBSERVATIONS Deep VeinsSuperficial Veins RightLeft RightLeft GSV (prox) NormalPartial CFV Normal Normal (above knee) Femoral Normal Normal GSV (dist) Normal Normal Profunda Normal Normal (below knee) Popliteal Normal Normal PT (prox) Not Visualized Not visualizedSSV Not Visualized Not Visualized PT (dist) Normal Normal Peroneal Normal Normal RIGHT:There is normal compressibility with no evidence of echogenic material noted within the lumen of the visualized veins. Colorflow and Doppler signals are normal. The calf veins in the proximal segment is not visualized in angeles scale due to patient's body habitus. There is a competent dilated puncher and fastener seen in the distal calf. LEFT:There is partial compressibility with soft echogenic material inside the lumen of greater saphenous vein at the saphenofemoral junction. Remainder of the above visualized veins appear normal. The calf veins in the proximal segment is not visualized in angeles scale and peroneal veins are poorly seen in the distal calf due to patient's body habitus. There is an incompetent dilated puncher and fastener seen in the distal calf. PRELIMINARY FINDINGS 1. Partial, thrombosis of left greater saphenous vein at the saphenofemoral junction. 2. Incompetent dilated puncher and fastener seen in the left distal calf and competent puncher and fastener seen in the right calf. 3. Technically difficult due to patient's body habitus. PHYSICIAN INTERPRETATION Venous examination of the both lower extremities demonstrated a partial, thrombosis of left greater saphenous vein at the saphenofemoral junction and adilated perforatorin the left distal calf andcompetent puncher and fastener seen in the right calf. Signed 08/19/2016 04:36 PM Abdullahi Chapman MD, RPVI Procedure Note Interface, Radiology Results In - 08/19/2016 4:37 PM CDT Vascular Ultrasound Laboratory Lower Extremity Venous Report [address] [address] [facility].Name: ADOLPH MORTENSEN.ID: [id number] .Date: 08/19/2016 Refer.MD: MARCIANO GORDON MD Exam Time: 11:36:00 AM Study Type:LE Venous Height: 62.5in Weight: 351lb BSA: 2.44 m2 Age: 6 1960,55Y Sex: FEMALE Sonogrphr: Lisette Barroso RVT Pat. Stat.:Inpatient Room: [address] Vol: SD, CPT - 4: 33128 Echo Event ID:[id number] Order ID: [id number] Reason for Study:Possible PE, Rule out DVT, Shortness of breath, Morbid obesity. Race: C SUMMARY: * Normal Reflux Criteria: < 0.5 seconds * Abnormal Reflux Criteria: > or equal to 0.5 seconds DUPLEX SCAN OBSERVATIONS Deep Veins Superficial Veins Right Left Right Left GSV (prox) Normal Partial CFV Normal Normal (above knee) Femoral Normal Normal GSV (dist) Normal Normal Profunda Normal Normal (below knee) Popliteal Normal Normal PT (prox) Not Visualized Not visualized SSV Not Visualized Not Visualized PT (dist) Normal Normal Peroneal Normal Normal RIGHT: There is normal compressibility with no evidence of echogenic material noted within the lumen of the visualized veins. Colorflow and Doppler signals are normal. The calf veins in the proximal segment is not visualized in angeles scale due to patient's body habitus. There is a competent dilated puncher and fastener seen in the distal calf. LEFT: There is partial compressibility with soft echogenic material inside the lumen of greater saphenous vein at the saphenofemoral junction. Remainder of the above visualized veins appear normal. The calf veins in the proximal segment is not visualized in angeles scale and peroneal veins are poorly seen in the distal calf due to patient's body habitus. There is an incompetent dilated puncher and fastener seen in the distal calf. PRELIMINARY FINDINGS 1. Partial, thrombosis of left greater saphenous vein at the saphenofemoral junction. 2. Incompetent dilated puncher and fastener seen in the left distal calf and competent puncher and fastener seen in the right calf. 3. Technically difficult due to patient's body habitus. PHYSICIAN INTERPRETATION Venous examination of the both lower extremities demonstrated a partial, thrombosis of left greater saphenous vein at the saphenofemoral junction and a dilated puncher and fastener in the left distal calf and competent puncher and fastener seen in the right calf. Signed 08/19/2016 04:36 PM Abdullahi Chapman MD, RPVI Echocardiogram 2d limited (08/19/2016 8:41 AM) Specimen Performing Laboratory [facility] [address] [place] [address] Narrative Echocardiography Report [address] [place] [address] Pat.Name:ADOLPH MORTENSEN Pat.ID:[id number] St.Date: 08/19/2016 Refer.MD:MARCIANO GORDON MD Exam Time: 8:18:00 AMStudy Type:Routine Echo Height:62inWeight:351lb BSA: 2.43 m2 DOBAge:1960,55Y Sex: FEMALEBP:108/56 HR:86 bpmSonogrphr: SHERRY Drummond Pat. Stat.:Inpatient Room:[place] [address] Study Status:Final Echo Event ID:[id number] Order ID:[id number] Reason for Study:Hemodynamic shock and RV failure History / Clinical:Congestive Heart Failure, Edema, Hypertension, Obesity, Shortness of Breath Procedures:Portable, Intravenous Definity Contrast, 2D Echo,Colorflow Doppler Limited Race:C SUMMARY: Severely dilated RV with severe RV dysfunction on limited images. LV function is hyperdynamic. Septal motion is paradoxical secondary to RV systolic pressure overload. Technically difficult study Findings suggestive of RV strain FINDINGS: LV: LV size is normal. LV function is hyperdynamic. Overall wall motionis normal. Septal motion is paradoxical secondary to RVsystolic pressure overload. Estimated EF is >70%. RV: RV size is severely enlarged. Difficult to assess RV function,but appears severely depressed LA: LA volume is difficult to assess. RA: RA volume is difficult to assess. AO: Aortic root diameter is normal. AV: Aortic valve not well seen. MV: No structural MV abnormalities noted. PV: Pulmonic valve not well seen. TV: No structural TV abnormalities noted. Other:Insufficient TR jet to estimate PA systolic pressure. Signed 08/19/2016 09:23 AM Tarik Sam M.D. Procedure Note Interface, Radiology Results In - 08/19/2016 9:23 AM CDT Echocardiography Report [address]Name: ADOLPH MORTENSEN.ID: [id number] St.Date: 08/19/2016 Refer.MD: MARCIANO GORDON MD Exam Time: 8:18:00 AM Study Type:Routine Echo Height: 62in Weight: 351lb BSA: 2.43 m2 Age: 6 1960,55Y Sex: FEMALE BP: 108/56 HR: 86 bpm Sonogrphr: SHERRY Drummond Pat. Stat.:Inpatient Room: [place] [address] Study Status:Final Echo Event ID:[id number] Order ID: [id number] Reason for Study:Hemodynamic shock and RV failure History / Clinical:Congestive Heart Failure, Edema, Hypertension, Obesity, Shortness of Breath Procedures:Portable, Intravenous Definity Contrast, 2D Echo,Colorflow Doppler Limited Race: C SUMMARY: Severely dilated RV with severe RV dysfunction on limited images. LV function is hyperdynamic. Septal motion is paradoxical secondary to RV systolic pressure overload. Technically difficult study Findings suggestive of RV strain FINDINGS: LV: LV size is normal. LV function is hyperdynamic. Overall wall motion is normal. Septal motion is paradoxical secondary to RV systolic pressure overload. Estimated EF is >70%. RV: RV size is severely enlarged. Difficult to assess RV function, but appears severely depressed LA: LA volume is difficult to assess. RA: RA volume is difficult to assess. AO: Aortic root diameter is normal. AV: Aortic valve not well seen. MV: No structural MV abnormalities noted. PV: Pulmonic valve not well seen. TV: No structural TV abnormalities noted. Other: Insufficient TR jet to estimate PA systolic pressure. Signed 08/19/2016 09:23 AM Tarik Sam M.D. Insert arterial line (08/19/2016 2:00 AM) Bettina Ortiz MD 08/19/20162:00 AM Arterial Line Insertion Date/Time: 08/19/2016 2:00 AM Performed by: WALKER ORTIZ Authorized by: WALKER ORTIZ Consent: Consent obtained:Written Consent given by:Patient Risks discussed:Bleeding, infection, pain, ischemia and repeat procedure Indications: Indications: hemodynamic monitoring and multiple ABGs Pre-procedure details: Skin preparation:2% Chlorhexidine Anesthesia (see MAR for exact dosages): Anesthesia method:Local infiltration Local anesthetic:Lidocaine 2% w/o epi Procedure details: Location:R radial Alirio's test performed: yes Alirio's test abnormal: no Placement technique:Seldinger and ultrasound guided Number of attempts:1 Transducer: waveform confirmed Post-procedure details: Post-procedure:Secured with tape, sterile dressing applied and sutured CMS:Normal Patient tolerance of procedure:Tolerated well, no immediate complications Comments: WALKER ORTIZ MD Respiratory pathogen panel (08/18/2016 11:33 PM) Component Value Ref Range Respiratory pathogen panel Negative for all pathogens tested: Negative for Adenovirus Negative for Coronavirus HKU1 Negative for Coronavirus NL63 Negative for Coronavirus 229E Negative for Coronavirus OC43 Negative for Human Metapneumovirus Negative for Rhinovirus/Enterovirus Negative for Influenza A Negative for Influenza A/H1 Negative for Influenza A/H3 Negative for Influenza A/H1-2009 Negative for Influenza B Negative for Parainfluenza Virus 1 Negative for Parainfluenza Virus 2 Negative for Parainfluenza Virus 3 Negative for Parainfluenza Virus 4 Negative for Respiratory Syncytial Virus Negative for Bordetella pertussis Negative for Chlamydophila pneumoniae Negative for Mycoplasma pneumoniae This real-time PCR assay detects the presence of nucleic acids (RNA or DNA) for the respiratory pathogens listed. A result of "Not-detected" does not exclude the possibility of the presence of one or more pathogens at concentrations less than the detectable limits of the assay. Comment: Specimen Information Specimen Source: Nares Specimen Site: Right Specimen Performing Laboratory Nares - Right [facility] DEPARTMENT OF PATHOLOGY AND GENOMIC MEDICINE [address] [place] [id number] Manual differential (08/18/2016 11:28 PM) Component Value Ref Range Manual differential PERFORMED Neutrophils 90.0 (H) 39.0 - 69.0 % Lymphocytes 7.0 (L) 25.0 - 45.0 % Monocytes 2.0 0.0 - 10.0 % Eosinophils 1.0 0.0 - 5.0 % Basophils 0.0 0.0 - 1.0 % Metamyelocytes 0 % Promyelocytes 0 % Platelet slide review Facundo adequate Enlarged platelets Moderate (A) Giant platelets Occasional Specimen Performing Laboratory [facility] DEPARTMENT OF PATHOLOGY AND GENOMIC MEDICINE [address] [place] [id number] Blood culture, aerobic & anaerobic (08/18/2016 11:10 PM) Component Value Ref Range Blood culture isolate No growth after 5 days of incubation. Comment: Specimen Information Specimen Source: Blood Specimen Site: Radial, right Specimen Performing Laboratory Blood - Radial, [facility] DEPARTMENT OF PATHOLOGY AND GENOMIC MEDICINE [address] [place] [address] ECG 12 lead (08/18/2016 9:30 PM) Component Value Ref Range Ventricular rate 112 Atrial rate 112 NC interval 196 QRSD interval 76 QT interval 310 QTC interval 423 P axis 1 56 QRS axis 1 107 T wave axis -1 EKG impression Sinus tachycardia-Biatrial enlargement-Possible Right ventricular hypertrophy-Septal infarct , age undetermined-T wave abnormality, consider inferior ischemia-Abnormal ECG-In automated comparison with ECG of Jul-2016 15:40,-Septal infarct is now present-T wave inversion more evident in Inferior leads- Specimen Performing Laboratory [facility] [place] [address] [place] [address] after 07/31/2016 Insurance Payer Benefit Plan / Group Subscriber ID Type Phone Address UHC MEDICARE AARP MEDICARE COMPLETE MCR xxxxxxxxx HMO Work: Sadi Santos [phone] [address] Home:
[2017-08-01 13:49] LABS: Arterial Blood Carboxyhemoglob 2.5 % (0-1.5); Blood Gas Oxyhemoglobin 86.5 % (94-97); Blood O2 Saturation 89.3 % (92-98.5)
[2017-08-01 14:12] LABS: Protime INR 1.4
[2017-08-01 14:18] LABS: Absolute Lymphocytes (CBC) 0.8 K/uL (0.7-4.9); Absolute Monocytes 1.8 K/uL (0.1-1.3); Absolute Neutrophil 14.1 K/uL (1.8-8.0); Basophils % 1.1 % (0-1.3); Hematocrit 31.9 % (36.0-45.0); Lymphocytes % 4.7 % (15.3-44.8); MCH 23.6 pg (27.0-35.0); MCV 75.6 fL (80-100); MPV 8.1 fL (7.6-11.3); Monocytes % 10.6 % (3.3-12.3); RBC Red Blood Cell Count 4.22 M/uL (3.86-4.86)
[2017-08-01 14:29] LABS: Albumin 3.3 g/dL (3.2-5.5); Bilirubin Direct 0.5 mg/dL (0-0.2); Bilirubin Total 1.5 mg/dL (0.3-1.2); CKMB Creatine Kinase MB 3.1 ng/ml (0.3-4.0); Protein, Total 7.1 g/dL (6.0-8.3)
[2017-08-01 14:31] LABS: Potassium 3.2 mEq/L (3.6-5.0)
--- NOTE | 2017-08-01 14:55 | RAD REPORT ---
EXAM DESCRIPTION: Barb Single View08/01/2017 2:39 pm CLINICAL HISTORY: Shortness of breath COMPARISON: May 2017 FINDINGS: Mild bilateral interstitial lung opacities are suspected. There may be a small right pleur al effusion. The heart is enlarged. IMPRESSION: Mild CHF
[2017-08-01] MEDS ORDERED: VANCOMYCIN/NS 1 gm 1 GM/250 ML BAG ONE (15:16)
[2017-08-01] MEDS ORDERED: CEFTRIAXONE/SWI 1gm 1 GM/10 ML SYR ONE (15:17)
[2017-08-01 15:25] LABS: Anisocytosis 2+; Blood Morphology Comment NOTED (NOT SEEN); Platelet Estimate ADEQ; Platelets, Giant FEW; Urine White Blood Cell Casts OK
[2017-08-01] MEDS ORDERED: ONDANSETRON 4 MG/2 ML VIAL IV PRN (15:41)
[2017-08-01] MEDS ORDERED: D50W 25 GM/50 ML SYRINGE IV PRN (15:41)
[2017-08-01] MEDS ORDERED: GLUCAGON 1 MG/VIAL IM PRN (15:41)
[2017-08-01] MEDS: INSULIN -REGULAR HUMAN 50 UNIT/0.5 ML ML SQ SCH ×2 (16:30→21:00)
--- NOTE | 2017-08-01 16:33 | ER ---
Nurse's Notes [facility] Name: Maegan Mortensen Age: 56 yrs Sex: Female : 1960 Arrival Date: 08/01/2017 Time: 13:10 Bed 6 Private MD: Diagnosis: Other sepsis;Acute respiratory failure;Cellulitis of left lower limb;Cellulitis of right lower limb Presentation: 08/01 13:15 Presenting complaint: EMS states: Patient told them she couldn't get out of bed this ap3 morning, called her therapist. Therapist waited two hours before calling EMS. SpO2 was 68%. Non re-breather with 15L was provided. Transition of care: patient was not received from another setting of care. Onset of symptoms was August 01, 2017. Care prior to arrival: Medication(s) given: 15L O2 via Non re-breather. 13:15 Method Of Arrival: EMS: [facility] ap3 13:19 Acuity: VIKTORIYA 2 ae1 Historical: - Allergies: 13:21 NKDA; ap3 - PMHx: 13:21 COPD; acid reflux; CHF; home O2 4L NC; PULMONARY HYPERTENSION; Lung Cancer; ap3 - Immunization history:: Adult Immunizations unknown. - Social history:: Smoking status: unknown. Screenin:30 Abuse screen: Denies threats or abuse. Denies injuries from another. Nutritional jl7 screening: No deficits noted. Tuberculosis screening: No symptoms or risk factors identified. Fall Risk IV access (20 points). Gait- Weak (10 pts.). Mental Status- Oriented to own ability (0 pts). Total Martinez Fall Scale indicates Low Risk Score (25-44 pts). Fall prevention measures have been instituted. Side Rails Up X 2 Placed close to Nursing Station Frequent Obs/Assesments occuring As available Patient and Family Educated on Fall Prevention Program and strategies. Assessment: 13:30 General: Appears distressed, uncomfortable, obese, unkempt, Behavior is cooperative. jl7 Pain: Denies pain. Neuro: Level of Consciousness is obeys commands, lethargic. Cardiovascular: Patient's skin is warm and dry. Respiratory: Airway is patent Respiratory effort is labored, with retractions, pt's whole torso/abdomen appears to move with each breath. Respiratory pattern is tachypnea Breath sounds are diminished bilaterally. GI: Abdomen is round non-distended, obese. : No signs and/or symptoms were reported regarding the genitourinary system. EENT: No signs and/or symptoms were reported regarding the EENT system. Derm: Skin is pink, warm \T\ dry. 14:30 Reassessment: No changes from previously documented assessment. Patient and/or family jl7 updated on plan of care and expected duration. Pain level reassessed. 15:30 Reassessment: No changes from previously documented assessment. Patient and/or family jl7 updated on plan of care and expected duration. Pain level reassessed. 16:30 Reassessment: No changes from previously documented assessment. Patient and/or family jl7 updated on plan of care and expected duration. Pain level reassessed. 17:30 Reassessment: No changes from previously documented assessment. Patient and/or family jl7 updated on plan of care and expected duration. Pain level reassessed. 17:40 Reassessment: Report called to floor nurse, pt will go to floor once personnel are jl7 available to transport. Vital Signs: 13:21 Pulse 114; Resp 17; Temp 99.7; Pulse Ox 90% on 15% Non-rebreather mask; ap3 14:00 BP 86 / 67; Pulse 112; Resp 20 S; Pulse Ox 100% on BiPAP; jl7 14:48 BP 96 / 71; Pulse 111; Resp 20 A; Pulse Ox 100% on BiPAP; jl7 15:15 BP 110 / 69; Pulse 108; Resp 28 S; Pulse Ox 100% on BiPAP; jl7 15:50 BP 105 / 66; Pulse 104; Resp 16 A; Pulse Ox 100% on BiPAP; jl7 16:15 Weight 135.17 kg; Height 5 ft. 3 in. (160.02 cm); iw 16:30 BP 105 / 74; Pulse 117; Resp 24 S; Pulse Ox 98% on BiPAP; jl7 18:03 BP 109 / 61; Pulse 101; Resp 28 S; Pulse Ox 98% on BiPAP; jl7 16:15 Body Mass Index 52.79 (135.17 kg, 160.02 cm) iw ED Course: 13:10 Patient arrived in ED. iw 13:13 Ramone Diamond RN is Primary Nurse. ae1 13:16 Swapnil Dykes MD is Attending Physician. gs 13:20 Triage completed. ae1 13:30 Patient has correct armband on for positive identification. Bed in low position. Call jl7 light in reach. Side rails up X2. residential monitor on. Pulse ox on. NIBP on. Warm blanket given. 13:30 Arm band placed on right wrist. jl7 13:44 EKG done, by ED staff, reviewed by Swapnli Dykes MD. Initial lab(s) drawn, by ok. jb1 Inserted saline lock: 20 gauge in right antecubital area, using aseptic technique. Blood collected. 14:35 Primary Nurse role handed off by Ramone Diamond, CHERELLE jl7 14:35 Isha Ramirez RN is Primary Nurse. jl7 14:39 XRAY Chest (1 view) In Process Unspecified. EDMS 14:39 X-ray completed. Portable x-ray completed in exam room. kw1 16:32 Jamie Feliz MD is Hospitalizing Provider. gs 17:54 No provider procedures requiring assistance completed. Patient admitted, IV remains in jl7 place. intact, No redness/swelling at site. Administered Medications: 15:00 Drug: Rocephin - (cefTRIAXone) 1 grams Route: IVPB; Infused Over: 2 mins; Site: right jl7 antecubital; 15:02 Follow up: IV Status: Completed infusion jl7 15:04 Drug: vancoMYCIN 1 grams Route: IVPB; Infused Over: 2 hrs; Site: right antecubital; jl7 Outcome: 16:33 Decision to Hospitalize by Provider. gs 17:54 Admitted to Med/surg accompanied by tech, via stretcher, room 229, with oxygen, with jl7 chart, Report called to Nurse Radha 17:54 Condition: stable 17:54 Discharge instructions given to patient, family, Instructed on the need for admit, Demonstrated understanding of instructions. 18:09 Patient left the ED. jl7 Signatures: Dispatcher [employer] EDMS Josh Mckeon jb1 Aleksandra Garsia RN RN Ramone Diamond, CHERELLE RN ae1 Isha Ramirez RN RN jl7 Swapnil Dykes MD MD Ailin Dahlly kw1 Mary Salmon ap3 Corrections: (The following items were deleted from the chart) 18:08 14:48 BP 96 / 71; Pulse 111bpm; Resp 20bpm; Assisted; Pulse Ox 100% CPAP; 7 jl7 : 14:00 BP 86 / 67; Pulse 112bpm; Resp 20bpm; Spontaneous; Pulse Ox 100% CPAP; 7 jl7 : 15:50 BP 105 / 66; Pulse 104bpm; Resp 16bpm; Assisted; Pulse Ox 100% CPAP; 7 jl7 : 15:15 BP 110 / 69; Pulse 108bpm; Resp 28bpm; Spontaneous; Pulse Ox 100% CPAP; [facility] jl7
--- NOTE | 2017-08-01 16:34 | EDPHYS ---
Physician Documentation [facility] Name: Maegan Mortensen Age: 56 yrs Sex: Female : 1960 Arrival Date: 08/01/2017 Time: 13:10 Bed 6 Private MD: ED Physician Swapnil Dykes HPI: 08/01 16:16 This 56 yrs old Female presents to ER via EMS with complaints of Respiratory gs Distress. 16:16 Onset: The symptoms/episode began/occurred acutely, just prior to arrival. Duration: gs The symptoms are continuous, and are unchanged since they started. The patient's shortness of breath is aggravated by exertion, light activity. Associated signs and symptoms: Pertinent positives: fever. Historical: - Allergies: 13:21 NKDA; ap3 - PMHx: 13:21 COPD; acid reflux; CHF; home O2 4L NC; PULMONARY HYPERTENSION; Lung Cancer; ap3 - Immunization history:: Adult Immunizations unknown. - Social history:: Smoking status: unknown. ROS: 16:22 Unable to obtain ROS due to patient distress. gs Exam: 16:22 Head/Face: Normocephalic, atraumatic. Eyes: Pupils equal round and reactive to light, gs extra-ocular motions intact. Lids and lashes normal. Conjunctiva and sclera are non-icteric and not injected. Cornea within normal limits. Periorbital areas with no swelling, redness, or edema. ENT: Nares patent. No nasal discharge, no septal abnormalities noted. Tympanic membranes are normal and external auditory canals are clear. Oropharynx with no redness, swelling, or masses, exudates, or evidence of obstruction, uvula midline. Mucous membranes moist. Neck: Trachea midline, no thyromegaly or masses palpated, and no cervical lymphadenopathy. Supple, full range of motion without nuchal rigidity, or vertebral point tenderness. No Meningismus. Chest/axilla: Normal chest wall appearance and motion. Nontender with no deformity. No lesions are appreciated. 16:22 Abdomen/GI: Soft, non-tender, with normal bowel sounds. No distension or tympany. No guarding or rebound. No evidence of tenderness throughout. Back: No spinal tenderness. No costovertebral tenderness. Full range of motion. 16:22 Constitutional: The patient appears alert, awake, in obvious distress, severely distressed. 16:22 Cardiovascular: Rate: tachycardic, Rhythm: regular, Pulses: no pulse deficits are appreciated, Edema: 3+ edema to level of left midcalf and right midcalf. 16:22 ECG was reviewed by the Attending Physician. 16:22 Respiratory: severe repiratory distress is noted, Respirations: labored breathing, accessory muscle usage, Breath sounds: decreased breath sounds, are located in both bases. 16:22 Musculoskeletal/extremity: Perfusion: the patient is normally perfused throughout, Edema, 3+ to the left midcalf and right midcalf is noted. 16:22 Skin: cellulitis, that is severe, confluent, on the left hammond, both legs. 16:22 Neuro: Mentation: is normal, Cranial nerves: CN II- XII are normal as tested, Motor: moves all fours. Vital Signs: 13:21 Pulse 114; Resp 17; Temp 99.7; Pulse Ox 90% on 15% Non-rebreather mask; ap3 14:00 BP 86 / 67; Pulse 112; Resp 20 S; Pulse Ox 100% on BiPAP; jl7 14:48 BP 96 / 71; Pulse 111; Resp 20 A; Pulse Ox 100% on BiPAP; jl7 15:15 BP 110 / 69; Pulse 108; Resp 28 S; Pulse Ox 100% on BiPAP; jl7 15:50 BP 105 / 66; Pulse 104; Resp 16 A; Pulse Ox 100% on BiPAP; jl7 16:15 Weight 135.17 kg; Height 5 ft. 3 in. (160.02 cm); iw 16:30 BP 105 / 74; Pulse 117; Resp 24 S; Pulse Ox 98% on BiPAP; jl7 18:03 BP 109 / 61; Pulse 101; Resp 28 S; Pulse Ox 98% on BiPAP; jl7 16:15 Body Mass Index 52.79 (135.17 kg, 160.02 cm) iw MDM: 13:46 Patient medically screened. 16:22 Differential diagnosis: CHF exacerbation, Chronic Obstructive Pulmonary Disease gs Myocardial Infarction pneumonia, Sepsis. Antibiotic administration: Data reviewed: vital signs, nurses notes. 08/01 13:45 Order name: Basic Metabolic Panel; Complete Time: 15:38 [facility] 08/01 13:45 Order name: BNP; Complete Time: 14:33 [facility] 08/01 13:45 Order name: CBC with Diff; Complete Time: 15:38 [facility] 08/01 13:45 Order name: Ckmb; Complete Time: 15:38 [facility] 08/01 13:45 Order name: CPK; Complete Time: 15:38 [facility] 08/01 13:45 Order name: LFT's; Complete Time: 15:38 [facility] 08/01 13:45 Order name: Magnesium; Complete Time: 15:38 [facility] 08/01 13:45 Order name: PT-INR; Complete Time: 14:33 [facility] 08/01 13:45 Order name: Ptt, Activated; Complete Time: 14:33 [facility] 08/01 13:45 Order name: Troponin (emerg Dept Use Only); Complete Time: 15:38 [facility] 08/01 13:45 Order name: Procalcitonin; Complete Time: 15:38 [facility] 08/01 13:45 Order name: Lactate; Complete Time: 14:33 [facility] 08/01 13:45 Order name: Blood Culture Adult (2) [facility] 08/01 13:47 Order name: ABG; Complete Time: 14:33 08/01 13:45 Order name: XRAY Chest (1 view); Complete Time: 15:39 [facility] 08/01 13:47 Order name: BIPAP 08/01 14:24 Order name: CBC Smear Scan; Complete Time: 15:38 [facility] 08/01 14:55 Order name: Hepatitis Panel 08/01 15:35 Order name: Urinalysis W/Microscopic [facility] 08/01 15:43 Order name: Lipid Profile [facility] 08/01 15:43 Order name: CBC with Automated Diff [facility] 08/01 15:43 Order name: CBC with Automated Diff [facility] 08/01 15:43 Order name: CBC with Automated Diff [facility] 08/01 15:43 Order name: CBC with Automated Diff [facility] 08/01 15:43 Order name: Comprehensive Metabolic Panel [facility] 08/01 15:43 Order name: Comprehensive Metabolic Panel [facility] 08/01 15:43 Order name: Comprehensive Metabolic Panel [facility] 08/01 15:43 Order name: Comprehensive Metabolic Panel [facility] 08/01 17:43 Order name: Lactate [facility] 08/01 17:43 Order name: Troponin (emerg Dept Use Only) [facility] 08/01 13:45 Order name: EKG; Complete Time: 13:46 08/01 13:45 Order name: Cardiac monitoring; Complete Time: 13:45 08/01 13:45 Order name: EKG - Nurse/Tech; Complete Time: 13:45 08/01 13:45 Order name: IV Saline Lock; Complete Time: 13:45 08/01 13:45 Order name: Labs collected and sent; Complete Time: 13:45 08/01 13:45 Order name: O2 Per Protocol; Complete Time: :45 08/01 13:45 Order name: O2 Sat Monitoring; Complete Time: 13:45 08/01 15:45 Order name: CONS Physician Consult [facility] EC:22 Rate is 114 beats/min. Rhythm is regular, Sinus tachycardia. QRS interval is normal. T gs waves are Inverted. Clinical impression: NSR w/ Non-specific ST/T Changes and Abnormal EKG without significant change. Interpreted by me. Administered Medications: 15:00 Drug: Rocephin - (cefTRIAXone) 1 grams Route: IVPB; Infused Over: 2 mins; Site: right [facility] antecubital; 15:02 Follow up: IV Status: Completed infusion [facility] 15:04 Drug: vancoMYCIN 1 grams Route: IVPB; Infused Over: 2 hrs; Site: right antecubital; [facility] Disposition: 16:33 Critical Care:. gs Disposition: 08/01/17 16:33 Hospitalization ordered by Jamie Feliz for Inpatient Admission. Preliminary diagnosis are Other sepsis, Acute respiratory failure, Cellulitis of left lower limb, Cellulitis of right lower limb. - Bed requested for Telemetry/MedSurg (Inpatient). - Status is Inpatient Admission. jl - Condition is Stable. - Problem is new. - Symptoms have improved. UTI on Admission? Yes Critical care time excluding procedures: 16:33 Critical care time: Bedside Care: 10 minutes, Consultation: 10 minutes, Family gs Intervention: 10 minutes. Total time: 30 minutes Signatures: Dispatcher [employer] [facility] Josh Mckeon [id number] Isha Ramirez RN RN jl7 Leanne Foster RN RN df Starr, Gregory, MD MD Mary Salmon3
[2017-08-01] MEDS ORDERED: ENOXAPARIN 40 MG/0.4 ML SQ SCH (17:00)
[2017-08-01] MEDS: NA CHLORIDE 0.9% 1,000 ML IV SCH (20:18)
--- NOTE | 2017-08-01 21:46 | EKG ---
Test Date: 2017-08-01 Test Time: 13:17:48 Immigration Consultant: NATHAN MEASUREMENT RESULTS: Intervals: Rate: 114 ME: 210 QRSD: 78 QT: 428 QTc: 589 [place]: P: ME: 210 QRS: 100 T: 47 INTERPRETIVE STATEMENTS: Sinus Tachycardia with first degree AV block Incomplete right bundle branch block Right atrial enlargement Abnormal ECG Compared to ECG 05/26/2017 01:13:28 no significant change from previous ECG Electronically Signed On 08-01-17 21:46:28 CDT by Varghese King
--- NOTE | 2017-08-02 05:07 | EKG ---
Test Date: 2017-08-01 Test Time: 20:07:06 [place] Utility Worker: RT MEASUREMENT RESULTS: Intervals: Rate: 95 LA: 206 QRSD: 84 QT: 518 QTc: 650 [place]: P: 19 LA: 206 QRS: 99 T: 33 INTERPRETIVE STATEMENTS: Normal sinus rhythm with first degree AV block Right atrial enlargement Rightward axis Incomplete right bundle branch block Prolonged QT Abnormal ECG Compared to ECG 08/01/2017 13:17:48 Sinus tachycardia is no longer present Electronically Signed On 08-02-17 05:06:36 CDT by Varghese King
[2017-08-02 05:35] LABS: Arterial Blood Carboxyhemoglob 2.7 % (0-1.5); Blood Gas Oxyhemoglobin 91.9 % (94-97)
[2017-08-02 06:02] LABS: Absolute Monocytes 0.7 K/uL (0.1-1.3); Absolute Neutrophil 7.2 K/uL (1.8-8.0); Eosinophils % 0.6 % (0-4.4); Lymphocytes % 11.2 % (15.3-44.8); MCH 23.7 pg (27.0-35.0); MCV 76.7 fL (80-100); MPV 7.9 fL (7.6-11.3); Monocytes % 7.5 % (3.3-12.3); RBC Red Blood Cell Count 4.04 M/uL (3.86-4.86)
[2017-08-02] MEDS: PANTOPRAZOLE 40MG TABLET PO SCH (06:11)
[2017-08-02 06:35] LABS: Albumin 2.9 g/dL (3.2-5.5); Bilirubin Total 0.8 mg/dL (0.3-1.2); Protein, Total 5.9 g/dL (6.0-8.3)
[2017-08-02] MEDS: INSULIN -REGULAR HUMAN 50 UNIT/0.5 ML ML SQ SCH ×4 (07:30→21:00)
[2017-08-02] MEDS ORDERED: Albuterol Sulfate (Proair Hfa) IH PRN (08:35)
[2017-08-02] MEDS ORDERED: Budesonide/Formoterol Fumarate (Symbicort) 160-4.5 Mcg Inhaler IH PRN (08:35)
[2017-08-02] MEDS ORDERED: Magnesium Sulfate 2gm IVPB 2 G/50 ML BAG IV ONE (08:47)
[2017-08-02] MEDS ORDERED: HOME MED 1 EA UNK (Linaclotide [Linzess] 145 MCG) PO SCH (09:00)
--- NOTE | 2017-08-02 09:27 | P.HP ---
Certification for Inpatient Patient admitted to: Inpatient With expected LOS: >2 Midnights Practitioner: I am a practitioner with admitting privileges, knowledge of patient current condition, hospital course, and medical plan of care. Services: Services provided to patient in accordance with Admission requirements found in Title 42 Section 412.3 of the Code of Federal Regulations Patient History Date of Service: 08/01/17 Primary Care Provider: Tray Reason for admission: Respiratory failure. History of Present Illness: Patient is a well known to me. She was found to be obtunded by her home health nurse and was sent to the ER. The patient cannot stay awake long enough to answer questions. She has an aunt at the bedside who provided most of the histoy. States she was in her bed. She fell and was very drowsy. The home nurse noticed that her oxygen saturation was low and called ems. The aunt does not recall the patient having any recent complaints such as fever or chills. Allergies No Known Drug Allergies Allergy (Verified 08/01/17 22:54) Unknown Home Medications: RX: Aspirin Chewable [Aspirin Chewable*] 81 mg PO DAILY 06/30/12 RX: Omeprazole 20 mg PO DAILY 06/30/12 RX: Potassium Chloride 20 meq PO DAILY 06/30/12 RX: Venlafaxine HCl [Venlafaxine HCl ER] 150 mg PO DAILY 06/30/12 RX: Albuterol Sulfate [Proair Hfa] 1 puff IH Q6HP PRN 10/12/15 RX: Prednisone 5 mg PO DAILY 10/12/15 Budesonide/Formoterol Fumarate [Symbicort 160-4.5 Mcg Inhaler] 2 puff IH BIDP PRN 08/17/16 Furosemide [Lasix*] 4 tab PO BID 08/17/16 Magnesium Oxide [Mag 0X Tab] 400 mg PO BID 08/17/16 RX: Spironolactone [Aldactone*] 25 mg PO DAILY 08/17/16 Apixaban [Eliquis] 5 mg PO BID 01/15/17 Montelukast [Singulair*] 10 mg PO DAILY 01/15/17 Loratadine [Claritin] 10 mg PO DAILY 03/29/17 Linaclotide [Linzess] 145 mcg PO DAILY 05/27/17 Sildenafil Citrate [Sildenafil] 20 mg PO TID 05/27/17 Ciprofloxacin HCl [Cipro 500 MG Tablet] 500 mg PO BID #14 tab 05/28/17 - Past Medical/Surgical History Diabetic: No -: COPD -: CHF -: Pulmonary HTn -: GERD -: 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 -: Right lobectomy -: Hyst -: tracey -: Tonsillectomy -: lap band - Family History Father -: Lung disease Notes: emphysema Brother -: Lung disease Notes: Lung CA - Social History Smoking Status: Never smoker Alcohol use: No CD- Drugs: No Caffeine use: Yes Place of Residence: Home Review of Systems is unable to be obtained Physical Examination - Vital Signs Temperature: 97.8 F Blood Pressure: 135/68 Pulse: 103 Respirations: 20 Pulse Ox (%): 92 - Physical Exam General: Alert, In no apparent distress, Confused (Patient is arousable and immediately goes back to sleep), Obese HEENT: Atraumatic, PERRLA, Mucous membr. moist/pink, EOMI, Sclerae nonicteric Neck: Supple, 2+ carotid pulse no bruit, No LAD, Without JVD or thyroid abnormality Respiratory: Clear to auscultation bilaterally, Diminished (distant breath sounds) Cardiovascular: Regular rate/rhythm, Normal S1 S2 Gastrointestinal: Normal bowel sounds, No tenderness Musculoskeletal: No tenderness Integumentary: No rashes, Venous stasis ulcer (chronic condition. improved from earlier this week) Neurological: Normal gait, Normal speech, Normal strength at 5/5 x4 extr, Normal tone, Normal affect Lymphatics: No axilla or inguinal lymphadenopathy - Studies Laboratory Data (last 24 hrs) 08/01/17 13:50: PT 16.6 H, INR 1.40, APTT 26.6 08/01/17 13:50: WBC 16.9 H, Hgb 9.9 L, Hct 31.9 L, Plt Count 357 08/01/17 13:50: B-Natriuretic Peptide 323 H 08/01/17 13:50: Sodium 133 L, Potassium 3.2 L, BUN 27 H, Creatinine 1.92 H, Glucose 142 H, Magnesium 1.0 L* D, Total Bilirubin 1.5 H, AST 2250 H*, ALT 1333 H*, Alkaline Phosphatase 140 H Assessment and Plan - Problems (Diagnosis) (1) Respiratory failure with hypercapnia Current Visit: Yes Status: Acute Plan: Will continue her on the CPAP. Keep her on Telemetry. Will check serial abg's to monitor if her hypercapnia and mental function improve. Qualifiers: Chronicity: acute on chronic Qualified Code(s): J96.22 - Acute and chronic respiratory failure with hypercapnia (2) Congestive heart failure, diastolic, left, w/preserved LV function, NYHA class 4 Onset Date: 05/27/17 Current Visit: No Status: Chronic Plan: Patient has an elevated troponins. Have discussed with Dr. Cordon. Will get a echocardiogram. If she worsens we may cath her this week. Start the patient on lovenox 1mg/kg till seen by Dr. Cordon. Will hold the elquis at this time. (3) Pulmonary hypertension Current Visit: No Status: Chronic Plan: Will keep her on the bipap. Continue monitoring her electolytes and CMP. Gentle hydrate the patient and correct electrolye imbalances. (4) Venous ulcer of left leg Current Visit: Yes Status: Acute Plan: Chronic problem being seen in the wound care center. Will hold the antibiotics. Continue dressing changes. (5) Body mass index (BMI) of 50-59.9 in adult Current Visit: Yes Status: Acute Plan: Will need to keep the patient on fall precautions. Once able will get a pt assesment on the patient Discharge Plan: Home Plan to discharge in: Greater than 2 days - Advance Directives Does patient have a Living Will: No Does patient have a Durable POA for Healthcare: No - Code Status/Comfort Care Code Status Assessed: No Code Status: Full Code Physician Review: Patient Assessed, Agree with Above Assessment and Plan Critical Care: No Time Spent Managing Pts Care (In Minutes): 75
[2017-08-02] MEDS: MONTELUKAST 10 MG TAB PO SCH (09:31)
[2017-08-02] MEDS: LORATADINE 10 MG TAB PO SCH (09:31)
[2017-08-02] MEDS: KCL 20 MEQ/100 mL IVPB 20 MEQ/100 ML BAG IV SCH ×3 (09:31→21:35)
[2017-08-02] MEDS: VENLAFAXINE HCL XR 75 MG CAP PO SCH (09:32)
[2017-08-02] MEDS: FUROSEMIDE 40 MG TABLET PO SCH ×2 (09:32→17:27)
[2017-08-02] MEDS: SILDENAFIL CITRATE 20 MG TABLET PO SCH ×3 (09:32→21:43)
[2017-08-02] MEDS: APIXABAN 5 MG TABLET PO SCH (09:33)
[2017-08-02] MEDS: MAGNESIUM OXIDE 400 MG TAB PO SCH ×2 (09:33→21:43)
[2017-08-02] MEDS: ASPIRIN 81 MG CHEWABLE TABLET PO SCH (09:33)
[2017-08-02] MEDS: SPIRONOLACTONE 25 MG TABLET PO SCH (09:33)
--- NOTE | 2017-08-02 09:43 | P.PN ---
Subjective Date of Service: 08/02/17 Primary Care Provider: Tray Chief Complaint: Respiratory failure. Subjective: Improving (Patient is awake and answering questions Denies falling. She does not remember seeing me in the ER yesterday) Review of Systems 10-point ROS is otherwise unremarkable General: Weakness Respiratory: SOB with Excertion Physical Examination - Vital Signs Temperature: 97.8 F Blood Pressure: 135/68 Pulse: 103 Respirations: 20 Pulse Ox (%): 92 - Physical Exam General: Alert, In no apparent distress HEENT: PERRLA, Other (2 well healing hematomas on the eye's ), EOMI Neck: Supple, JVD not distended Respiratory: Clear to auscultation bilaterally, Normal air movement Cardiovascular: Regular rate/rhythm, Normal S1 S2 Gastrointestinal: Normal bowel sounds, No tenderness Musculoskeletal: No tenderness Integumentary: No rashes Neurological: Normal speech, Normal tone, Normal affect Lymphatics: No axilla or inguinal lymphadenopathy - Studies Laboratory Data (last 24 hrs) 08/01/17 13:50: PT 16.6 H, INR 1.40, APTT 26.6 08/01/17 13:50: WBC 16.9 H, Hgb 9.9 L, Hct 31.9 L, Plt Count 357 08/01/17 13:50: B-Natriuretic Peptide 323 H 08/01/17 13:50: Sodium 133 L, Potassium 3.2 L, BUN 27 H, Creatinine 1.92 H, Glucose 142 H, Magnesium 1.0 L* D, Total Bilirubin 1.5 H, AST 2250 H*, ALT 1333 H*, Alkaline Phosphatase 140 H Assessment & Plan - Problems (Diagnosis) (1) Respiratory failure with hypercapnia Current Visit: Yes Status: Acute Plan: Will continue her on the CPAP. She is more alert. However her PCO2 is approx the same. Will recheck serial abg. Hopefully she improves. Otherwise will consult Dr. Kovacs. Qualifiers: Chronicity: acute on chronic Qualified Code(s): J96.22 - Acute and chronic respiratory failure with hypercapnia (2) Congestive heart failure, diastolic, left, w/preserved LV function, NYHA class 4 Onset Date: 05/27/17 Current Visit: No Status: Chronic Plan: Patient has an elevated troponins. Have discussed with Dr. Cordon. Will get a echocardiogram. If she worsens we may cath her this week. Start the patient on lovenox 1mg/kg till seen by Dr. Cordon. Will hold the elquis at this time. (3) Pulmonary hypertension Current Visit: No Status: Chronic Plan: Will keep her on the bipap. Continue monitoring her electolytes and CMP. Gentle hydrate the patient and correct electrolye imbalances. (4) Venous ulcer of left leg Current Visit: Yes Status: Acute Plan: Chronic problem being seen in the wound care center. Will hold the antibiotics. Continue dressing changes. (5) Body mass index (BMI) of 50-59.9 in adult Current Visit: Yes Status: Acute Plan: Will need to keep the patient on fall precautions. Once able will get a pt assesment on the patient Discharge Plan: Home Plan to discharge in: Greater than 2 days - Code Status/Comfort Care Code Status Assessed: Yes Code Status: Full Code Physician Review: Patient Assessed, Agree with Above Assessment and Plan Critical Care: No Time Spent Managing Pts Care (In Minutes): 25
[2017-08-02] MEDS: NA CHLORIDE 0.9% 1,000 ML IV SCH (12:17)
--- NOTE | 2017-08-02 12:55 | P.CNS ---
Date of Consult: 08/02/17 Primary Care Provider: Tray Chief Complaint: Respiratory failure. History of Present Illness: Patient is 56 years of age well known to me with a history of pulmonary hypertension obstructive sleep apnea admitted with unresponsiveness hypoxic hypercapnic respiratory failure at the time of my evaluation patient was not responsive on a BiPAP Allergies No Known Drug Allergies Allergy (Verified 08/01/17 22:54) Unknown Home Medications: Aspirin Chewable [Aspirin Chewable*] 81 mg PO DAILY 06/30/12 Omeprazole 20 mg PO DAILY 06/30/12 Potassium Chloride 20 meq PO DAILY 06/30/12 Venlafaxine HCl [Venlafaxine HCl ER] 150 mg PO DAILY 06/30/12 Albuterol Sulfate [Proair Hfa] 1 puff IH Q6HP PRN 10/12/15 Prednisone 5 mg PO DAILY 10/12/15 Budesonide/Formoterol Fumarate [Symbicort 160-4.5 Mcg Inhaler] 2 puff IH BIDP PRN 08/17/16 Furosemide [Lasix*] 4 tab PO BID 08/17/16 Magnesium Oxide [Mag 0X Tab] 400 mg PO BID 08/17/16 Spironolactone [Aldactone*] 25 mg PO DAILY 08/17/16 Apixaban [Eliquis] 5 mg PO BID 01/15/17 Montelukast [Singulair*] 10 mg PO DAILY 01/15/17 Loratadine [Claritin] 10 mg PO DAILY 03/29/17 Linaclotide [Linzess] 145 mcg PO DAILY 05/27/17 Sildenafil Citrate [Sildenafil] 20 mg PO TID 05/27/17 Ciprofloxacin HCl [Cipro 500 MG Tablet] 500 mg PO BID #14 tab 05/28/17 - Past Medical/Surgical History Diabetic: No -: COPD -: CHF -: Pulmonary HTn -: GERD -: 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 -: Right lobectomy -: Hyst -: tracey -: Tonsillectomy -: lap band - Family History Father Medical History: Lung disease Notes: emphysema Brother Medical History: Lung disease Notes: Lung CA - Social History Smoking Status: Unknown if ever smoked Alcohol use: No CD- Drugs: No Caffeine use: Yes Place of Residence: Home Review of Systems is unable to be obtained Physical Examination Temp Pulse Resp BP Pulse Ox 97.5 F 104 H 20 128/67 91 08/02/17 12:00 08/02/17 12:00 08/02/17 12:00 08/02/17 12:00 08/02/17 12:00 General: Unresponsive, Other Respiratory: Clear to auscultation bilaterally, Diminished Cardiovascular: Normal S1 S2, Edema (Minimal edema) Gastrointestinal: Normal bowel sounds, Soft and benign Musculoskeletal: No clubbing, No swelling Laboratory Data (last 24 hrs) 08/01/17 13:50: PT 16.6 H, INR 1.40, APTT 26.6 08/01/17 13:50: WBC 16.9 H, Hgb 9.9 L, Hct 31.9 L, Plt Count 357 08/01/17 13:50: B-Natriuretic Peptide 323 H 08/01/17 13:50: Sodium 133 L, Potassium 3.2 L, BUN 27 H, Creatinine 1.92 H, Glucose 142 H, Magnesium 1.0 L* D, Total Bilirubin 1.5 H, AST 2250 H*, ALT 1333 H*, Alkaline Phosphatase 140 H - Problems (1) Acute and chronic respiratory failure Current Visit: Yes Status: Acute Plan: Patient is 56 years of age admitted with unresponsiveness hypoxic hypercapnic respiratory failure abnormal liver function tests elevated bicarbonate I have added Diamox continue with the Lasix and spironolactone patient is a mild microcytic anemia white count is mildly elevated chest x-ray no obvious infiltrate titrate sat to 90% repeat the arterial blood gases thyroid function test I have also added IV Rocephin ultrasound of the liver Qualifiers: Respiratory failure complication: hypoxia and hypercapnia Qualified Code(s) : J96.21 - Acute and chronic respiratory failure with hypoxia; J96.22 - Acute and chronic respiratory failure with hypercapnia; J96.22 - Acute and chronic respiratory failure with hypercapnia; J96.22 - Acute and chronic respiratory failure with hypercapnia
[2017-08-02 13:56] LABS: Arterial Blood Carboxyhemoglob 2.6 % (0-1.5); Blood Gas Oxyhemoglobin 82.2 % (94-97); Blood O2 Saturation 85.9 % (92-98.5)
[2017-08-02] MEDS: ACETAZOLAMIDE 500 MG IV IV SCH ×2 (14:06→21:44)
[2017-08-02] MEDS: CEFTRIAXONE/SWI 1gm 1 GM/10 ML SYR IV SCH (14:06)
[2017-08-02] MEDS: IPRATROPIUM BROM 0.5MG/2.5ML NEB SCH ×2 (14:40→19:59)
--- NOTE | 2017-08-02 16:28 | EKG ---
Test Date: 2017-08-02 Test Time: 08:16:15 Bid Manager: JACEK MEASUREMENT RESULTS: Intervals: Rate: 100 [place]: QRSD: 82 QT: 504 QTc: 650 [place]: P: [place]: QRS: 100 T: 50 INTERPRETIVE STATEMENTS: Accelerated Junctional rhythm Possible Right ventricular hypertrophy Prolonged QT Abnormal ECG Compared to ECG 08/01/2017 20:07:06 Accelerated junctional rhythm now present Sinus rhythm no longer present First degree AV block no longer present Atrial abnormality no longer present Right-axis deviation no longer present Incomplete right bundle-branch block no longer present Electronically Signed On 08-02-17 16:25:01 CDT by Rudolph Cordon
--- NOTE | 2017-08-02 16:56 | ECHO ---
HEIGHT: 5 ft 3 in WEIGHT: 298 lb 0 oz DATE OF STUDY: 08/02/[address]: Jamie Feliz MD 2-DIMENSIONAL: YES M.MODE: YES DOPPLER: YES COLOR FLOW: YES TDS: YES PORTABLE: DEFINITY: BUBBLE STUDY: DIAGNOSIS: ELEVATED TROPONIN CARDIAC HISTORY: CATHERIZATION: NO SURGERY: NO PROSTHETIC VALVE: NO PACEMAKER: NO MEASUREMENTS (cm) DIASTOLIC (NORMALS) SYSTOLIC (NORMALS) IVSd 1.1 (0.6-1.2) LA Diam 4.0 (1.9-4.0) LVEF 82% LVIDd 3.8 (3.5-5.7) LVIDs 1.9 (2.0-3.5) %FS 50% LVPWd 1.2 (0.6-1.2) Ao Diam (2.0-3.7) 2 DIMENSIONAL ASSESSMENT: RIGHT ATRIUM: DILATED LEFT ATRIUM: NORMAL RIGHT VENTRICLE: DILATED LEFT VENTRICLE: NORMAL TRICUSPID VALVE: NORMAL MITRAL VALVE: NORMAL PULMONIC VALVE: NORMAL AORTIC VALVE: NORMAL PERICARDIAL EFFUSION: NONE AORTIC ROOT: NORMAL LEFT VENTRICULAR WALL MOTION: NORMAL DOPPLER/COLOR FLOW: MILD TRICUSPID REGURGITATION. COMMENTS: TECHNICALLY DIFFICULT STUDY. DILATED RIGHT ATRIUM AND RIGHT VENTRICLE. MILD TRICUSPID REGURGITATION. NORMAL RIGHT VENTRICULAR SYSTOLIC PRESSURE. NORMAL LEFT VENTRICULAR SIZE AND FUNCTION. TECHNOLOGIST: DIDIER GONZALEZ
[2017-08-02 18:29] LABS: Blood Gas Oxyhemoglobin 92.2 % (94-97); Blood O2 Saturation 94.4 % (92-98.5)
--- NOTE | 2017-08-02 22:39 | CON ---
Date of Consultation: 08/02/[address] Feliz on 08/01/2017. The patient was seen on 08/02/2017. Reason For Consultation: Chest pain, shortness of breath, diastolic congestive heart failure and pul monary hypertension. History Of Present Illness: Ms. Mortensen is a 56-year-old white woman. She has a history of lung c ancer in the past, chronic diastolic congestive heart failure, severe pulmonary hypertension, severe COPD on 4 L home O2, gastroesophageal reflux disease, history of DVT, on Eliquis. The patient is act ually on Viagra for her pulmonary hypertension. She sees maintenance department technician in [place]. She is also on L asix, aspirin, Eliquis, Aldactone and Protonix inhalers. She came in with severe shortness of breath , hypercapnia with a pCO2 of 77, obtunded on BiPAP eventually improved. Hemoglobin was fo und to have many issues with her blood work including hemoglobin 9.9, troponin 1.62, creatinine 1.92. White count 17,000. Elevated liver functions, AST was 2260, ALT was 1333. Review of Systems: Negative. Social History: Negative. Family History: Negative. Medications: Listed earlier. Physical Examination: General: She had a BiPAP on. She was saturating well. Alert and oriented x3, feeling better. Vital Signs: Stable. Afebrile. HEENT: Negative. Neck: Supple. No bruit, JVD or thyromegaly. Chest: Revealed some expiratory wheezing, but no rales. Cardiac: Revealed a regular rhythm and rate with a tricuspid regurgitation murmur. No rubs. No gal lops. Abdomen: Obese. Extremities: Revealed chronic venous insufficiency changes and 1+ edema. Diagnostic Data: Her EKG showed sinus tachycardia with incomplete right bundle-branch block. Her est x-ray showed mild congestive heart failure. Echocardiogram from August 2016 shows severe pulmonar y hypertension with right atrial and right ventricular enlargement, normal ejection fraction. She cardenas d a catheterization about a year ago, which showed normal coronaries. Impression And Plan: 1.Elevated troponin secondary to hypoxia. 2.Elevated liver function enzyme. Hepatitis workup is pending. This is not related to chronic pass eyal congestion as she had normal ejection fraction. The right sided heart failure can be causing ___ her BNP is only 323. Her chest x-ray showed only mild failure workup is in order. 3.Anemia. 4.Elevated white count. 5.Renal insufficiency stage III. 6.Obesity. 7.Severe pulmonary hypertension. 8.History of lung cancer. 9.Gastroesophageal reflux disease. I will continue her medical regimen as is. I will be aggressive with her pulmonary therapy, liver work. Pulmonary consultation. Continue her medications including the Eliquis. Does not need another catheterization based on what we see. Echocardiogram pending. We will continue to follow her. PERRY/OPAL Voice ID: [id number] Report ID: [id number]
[2017-08-03] MEDS: KCL 20 MEQ/100 mL IVPB 20 MEQ/100 ML BAG IV SCH (00:21)
[2017-08-03] MEDS: IPRATROPIUM BROM 0.5MG/2.5ML NEB SCH ×4 (01:50→19:41)
[2017-08-03] MEDS: PANTOPRAZOLE 40MG TABLET PO SCH (05:33)
--- NOTE | 2017-08-03 05:50 | EKG ---
Test Date: 2017-08-02 Test Time: 17:33:51 String Winding Machine Operator: MIAN MEASUREMENT RESULTS: Intervals: Rate: 98 CO: 218 QRSD: 80 QT: 358 QTc: 457 [place]: P: 51 CO: 218 QRS: 96 T: 18 INTERPRETIVE STATEMENTS: Sinus rhythm with 1st degree AV block Right atrial enlargement Possible Right ventricular hypertrophy Incomplete right bundle branch block Abnormal ECG Compared to ECG 08/02/2017 08:16:15 no significant change from previous ECG Electronically Signed On 08-03-17 05:50:17 CDT by Varghese King
[2017-08-03 07:10] LABS: Absolute Lymphocytes (CBC) 0.7 K/uL (0.7-4.9); Absolute Monocytes 0.5 K/uL (0.1-1.3); Absolute Neutrophil 5.1 K/uL (1.8-8.0); Basophils % 0.7 % (0-1.3); Eosinophils % 1.4 % (0-4.4); Hematocrit 29.2 % (36.0-45.0); Lymphocytes % 11.5 % (15.3-44.8); MCH 24.9 pg (27.0-35.0); MPV 8.2 fL (7.6-11.3); Monocytes % 7.2 % (3.3-12.3); RBC Red Blood Cell Count 3.79 M/uL (3.86-4.86)
[2017-08-03 07:13] LABS: Albumin 2.7 g/dL (3.2-5.5); Bilirubin Total 0.8 mg/dL (0.3-1.2); Magnesium 1.4 mg/dL (1.8-2.5); Potassium 3.1 mEq/L (3.6-5.0); Protein, Total 5.8 g/dL (6.0-8.3)
[2017-08-03] MEDS ORDERED: POTASSIUM 25 MEQ EFFERV TAB PO ONE ×2 (07:28→10:15)
[2017-08-03] MEDS ORDERED: Magnesium Sulfate 2gm IVPB 2 G/50 ML BAG IV ONE ×2 (07:29→10:15)
[2017-08-03] MEDS: INSULIN -REGULAR HUMAN 50 UNIT/0.5 ML ML SQ SCH ×5 (07:30→21:00)
--- NOTE | 2017-08-03 08:56 | P.PN ---
Subjective Date of Service: 08/03/17 Primary Care Provider: Tray Chief Complaint: Respiratory failure. Subjective: Improving (Patient is more alert responsive cooperative according to the patient this occurred all of a sudden she went to lie back in bed developed low saturations and was admitted to the hospital denies any cough sputum hemoptysis no chest pain no significant lower extremity edema) Review of Systems General: Weakness Respiratory: Shortness of Breath Physical Examination - Vital Signs Temperature: 97.9 F Blood Pressure: 126/67 Pulse: 89 Respirations: 18 Pulse Ox (%): 99 - Physical Exam General: Alert, Oriented x3 Neck: Supple Respiratory: Clear to auscultation bilaterally Cardiovascular: No edema, Normal S1 S2 Assessment & Plan - Problems (Diagnosis) (1) Acute and chronic respiratory failure Current Visit: Yes Status: Acute Plan: Patient is 56 years of age admitted with acute on chronic respiratory failure abnormal liver function tests which have been improving renal function has improved bordered ultrasound of the abdomen she does have a history of pulmonary hypertension right ventricle is dilated white count was normal cultures are so far negative patient is never smoked use bronchodilators on a p.r.n. basis patient takes anticoagulants at home Qualifiers: Respiratory failure complication: hypoxia and hypercapnia Qualified Code(s) : J96.21 - Acute and chronic respiratory failure with hypoxia; J96.22 - Acute and chronic respiratory failure with hypercapnia; J96.22 - Acute and chronic respiratory failure with hypercapnia; J96.22 - Acute and chronic respiratory failure with hypercapnia Physician Review: Patient Assessed, Agree with Above Assessment and Plan
[2017-08-03] MEDS: CEFTRIAXONE/SWI 1gm 1 GM/10 ML SYR IV SCH (10:12)
[2017-08-03] MEDS: MONTELUKAST 10 MG TAB PO SCH (10:13)
[2017-08-03] MEDS: LORATADINE 10 MG TAB PO SCH (10:13)
[2017-08-03] MEDS: ACETAZOLAMIDE 500 MG IV IV SCH ×2 (10:14→21:28)
[2017-08-03] MEDS: FUROSEMIDE 40 MG TABLET PO SCH ×2 (10:14→16:55)
[2017-08-03] MEDS: VENLAFAXINE HCL XR 75 MG CAP PO SCH (10:14)
[2017-08-03] MEDS: SPIRONOLACTONE 25 MG TABLET PO SCH (10:15)
[2017-08-03] MEDS: MAGNESIUM OXIDE 400 MG TAB PO SCH ×2 (10:15→21:00)
[2017-08-03] MEDS: ASPIRIN 81 MG CHEWABLE TABLET PO SCH (10:15)
[2017-08-03] MEDS: SILDENAFIL CITRATE 20 MG TABLET PO SCH ×3 (10:15→21:29)
--- NOTE | 2017-08-03 10:21 | EKG ---
Test Date: 2017-08-03 Test Time: 09:52:07 Laborer Pole Crew: MIAN MEASUREMENT RESULTS: Intervals: Rate: 96 IA: 218 QRSD: 90 QT: 362 QTc: 457 [place]: P: 57 IA: 218 QRS: 101 T: 38 INTERPRETIVE STATEMENTS: Sinus rhythm with 1st degree AV block Biatrial enlargement Possible Right ventricular hypertrophy Septal infarct, age undetermined Abnormal ECG Compared to ECG 08/02/2017 17:33:51 Myocardial infarct finding now present Incomplete right bundle-branch block no longer present Electronically Signed On 08-03-17 10:20:34 CDT by Varghese King
[2017-08-03] MEDS ORDERED: WATER FOR INJ,STERILE 10 ML IV PRN (10:25)
--- NOTE | 2017-08-03 11:23 | P.PN ---
Subjective Date of Service: 08/03/17 Primary Care Provider: Tray Chief Complaint: Respiratory failure. Subjective: Improving Review of Systems 10-point ROS is otherwise unremarkable Physical Examination - Vital Signs Temperature: 97.9 F Blood Pressure: 126/67 Pulse: 89 Respirations: 18 Pulse Ox (%): 99 - Physical Exam General: Alert, In no apparent distress HEENT: Atraumatic, PERRLA, EOMI Neck: Supple, JVD not distended Respiratory: Clear to auscultation bilaterally, Normal air movement Cardiovascular: Regular rate/rhythm, Normal S1 S2 Gastrointestinal: Normal bowel sounds, No tenderness Musculoskeletal: No tenderness Integumentary: No rashes Neurological: Normal speech, Normal tone, Normal affect Lymphatics: No axilla or inguinal lymphadenopathy Assessment & Plan - Problems (Diagnosis) (1) Respiratory failure with hypercapnia Onset Date: 08/02/17 Current Visit: Yes Status: Acute Plan: improving will keep her off the cpap. Start her on PT. Qualifiers: Chronicity: acute on chronic Qualified Code(s): J96.22 - Acute and chronic respiratory failure with hypercapnia (2) Congestive heart failure, diastolic, left, w/preserved LV function, NYHA class 4 Onset Date: 05/27/17 Current Visit: No Status: Chronic Plan: Patient has an elevated troponins. Have discussed with Dr. Cordon. Will get a echocardiogram. If she worsens we may cath her this week. Start the patient on lovenox 1mg/kg till seen by Dr. Cordon. Will hold the elquis at this time. (3) Pulmonary hypertension Current Visit: No Status: Chronic Plan: Will keep her on the bipap. Continue monitoring her electolytes and CMP. Gentle hydrate the patient and correct electrolye imbalances. (4) Venous ulcer of left leg Onset Date: 08/02/17 Current Visit: Yes Status: Acute Plan: Chronic problem being seen in the wound care center. Will hold the antibiotics. Continue dressing changes. (5) Body mass index (BMI) of 50-59.9 in adult Onset Date: 08/02/17 Current Visit: Yes Status: Acute Plan: Will need to keep the patient on fall precautions. Once able will get a pt assesment on the patient Discharge Plan: Home Plan to discharge in: 48 Hours - Code Status/Comfort Care Code Status Assessed: Yes Code Status: Full Code Physician Review: Patient Assessed, Agree with Above Assessment and Plan Critical Care: No Time Spent Managing Pts Care (In Minutes): 20
[2017-08-03 20:29] LABS: HBsAG Nonreactive (Nonreactive); Hepatitis A IgM Antibody Nonreactive
[2017-08-03 23:31] LABS: Urine Appearance CLEAR; Urine Bilirubin NEGATIVE (NEG); Urine Blood NEGATIVE (NEG); Urine Color YELLOW; Urine Glucose NEGATIVE (NEG); Urine Protein NEGATIVE (NEG); Urine Urobilinogen 0.2 mg/dL (0.2-1.0)
[2017-08-03 23:55] LABS: Urine Bacteria <20 /HPF (<20); Urine Culture Reflex Order NOT NEEDED; Urine RBC NONE SEEN /HPF (NONE SEEN)
[2017-08-04] MEDS: IPRATROPIUM BROM 0.5MG/2.5ML NEB SCH ×4 (01:51→20:02)
[2017-08-04] MEDS: PANTOPRAZOLE 40MG TABLET PO SCH (06:00)
[2017-08-04 06:02] LABS: Absolute Monocytes 0.7 K/uL (0.1-1.3); Basophils % 0.8 % (0-1.3); Eosinophils % 1.4 % (0-4.4); Hematocrit 32.6 % (36.0-45.0); Lymphocytes % 14.8 % (15.3-44.8); MCH 24.3 pg (27.0-35.0); MCV 78.5 fL (80-100); MPV 8.3 fL (7.6-11.3); RBC Red Blood Cell Count 4.15 M/uL (3.86-4.86)
[2017-08-04 06:35] LABS: Albumin 2.9 g/dL (3.2-5.5); Bilirubin Total 0.9 mg/dL (0.3-1.2); Potassium 3.4 mEq/L (3.6-5.0); Protein, Total 6.2 g/dL (6.0-8.3)
[2017-08-04 06:44] LABS: Magnesium 1.4 mg/dL (1.8-2.5)
[2017-08-04] MEDS: INSULIN -REGULAR HUMAN 50 UNIT/0.5 ML ML SQ SCH ×4 (07:30→21:00)
[2017-08-04] MEDS ORDERED: Magnesium Sulfate 2gm IVPB 2 G/50 ML BAG IV ONE (08:00)
[2017-08-04] MEDS: VENLAFAXINE HCL XR 75 MG CAP PO SCH (09:09)
[2017-08-04] MEDS: FUROSEMIDE 40 MG TABLET PO SCH ×2 (09:09→17:03)
[2017-08-04] MEDS: MONTELUKAST 10 MG TAB PO SCH (09:09)
[2017-08-04] MEDS: MAGNESIUM OXIDE 400 MG TAB PO SCH ×2 (09:10→21:36)
[2017-08-04] MEDS: SPIRONOLACTONE 25 MG TABLET PO SCH (09:11)
[2017-08-04] MEDS: ASPIRIN 81 MG CHEWABLE TABLET PO SCH (09:11)
[2017-08-04] MEDS: LORATADINE 10 MG TAB PO SCH (09:11)
[2017-08-04] MEDS: CEFTRIAXONE/SWI 1gm 1 GM/10 ML SYR IV SCH (09:11)
[2017-08-04] MEDS: SILDENAFIL CITRATE 20 MG TABLET PO SCH ×3 (09:11→21:37)
[2017-08-04] MEDS: ACETAZOLAMIDE 500 MG IV IV SCH ×2 (09:13→21:36)
--- NOTE | 2017-08-04 13:00 | P.PN ---
Subjective Date of Service: 08/04/17 Primary Care Provider: Tray Chief Complaint: Respiratory failure. Subjective: No new changes Review of Systems 10-point ROS is otherwise unremarkable Respiratory: SOB with Excertion Physical Examination - Vital Signs Temperature: 96.8 F Blood Pressure: 124/70 Pulse: 112 Respirations: 18 Pulse Ox (%): 93 - Physical Exam General: Alert, In no apparent distress HEENT: Atraumatic, PERRLA, EOMI Neck: Supple, JVD not distended Respiratory: Clear to auscultation bilaterally, Normal air movement Cardiovascular: Regular rate/rhythm, Normal S1 S2 Gastrointestinal: Normal bowel sounds, No tenderness Musculoskeletal: No tenderness Integumentary: No rashes Neurological: Normal speech, Normal tone, Normal affect Lymphatics: No axilla or inguinal lymphadenopathy Assessment & Plan - Problems (Diagnosis) (1) Respiratory failure with hypercapnia Onset Date: 08/02/17 Current Visit: Yes Status: Acute Plan: improving will keep her off the cpap. Start her on PT. Qualifiers: Chronicity: acute on chronic Qualified Code(s): J96.22 - Acute and chronic respiratory failure with hypercapnia (2) Congestive heart failure, diastolic, left, w/preserved LV function, NYHA class 4 Onset Date: 05/27/17 Current Visit: No Status: Chronic Plan: Patient has an elevated troponins. Have discussed with Dr. Cordon. Will get a echocardiogram. If she worsens we may cath her this week. Start the patient on lovenox 1mg/kg till seen by Dr. Cordon. Will hold the elquis at this time. (3) Pulmonary hypertension Current Visit: No Status: Chronic Plan: Will keep her on the bipap. Continue monitoring her electolytes and CMP. Gentle hydrate the patient and correct electrolye imbalances. (4) Venous ulcer of left leg Onset Date: 08/02/17 Current Visit: Yes Status: Acute Plan: Chronic problem being seen in the wound care center. Will hold the antibiotics. Continue dressing changes. (5) Body mass index (BMI) of 50-59.9 in adult Onset Date: 08/02/17 Current Visit: Yes Status: Acute Plan: Will need to keep the patient on fall precautions. Once able will get a pt assesment on the patient Discharge Plan: Home Plan to discharge in: 24 Hours - Code Status/Comfort Care Code Status Assessed: No Code Status: Full Code Physician Review: Patient Assessed, Agree with Above Assessment and Plan Critical Care: No Time Spent Managing Pts Care (In Minutes): 25
--- NOTE | 2017-08-04 13:02 | P.PN ---
Subjective Date of Service: 08/04/17 Primary Care Provider: Tray Chief Complaint: Respiratory failure. Subjective: Improving (Patient is doing better alert responsive cooperative edema has declined) Review of Systems General: Weakness Respiratory: Shortness of Breath Physical Examination - Vital Signs Temperature: 96.8 F Blood Pressure: 124/70 Pulse: 112 Respirations: 18 Pulse Ox (%): 93 - Physical Exam General: Alert, Oriented x3 Neck: Supple Respiratory: Clear to auscultation bilaterally, Diminished Cardiovascular: Normal S1 S2, Edema (Mild edema) Assessment & Plan - Problems (Diagnosis) (1) Acute and chronic respiratory failure Current Visit: Yes Status: Acute Plan: Patient admitted with acute on chronic respiratory failure she is doing much better continue with the sick spironolactone and Diamox patient recently had a sleep study done the not qualify for an ASV ventilator due to the fact that her obstructive apnea exceed central apnea is will fax an order for auto BiPAP from my office. Patient has CPAP at home oxygen a hammond satisfactory Proteus mirabilis isolated from the wound she can be discharged home on 2 L of nasal cannula oxygen she does have oxygen at home resume a pulmonary hypertension medication Qualifiers: Respiratory failure complication: hypoxia and hypercapnia Qualified Code(s) : J96.21 - Acute and chronic respiratory failure with hypoxia; J96.22 - Acute and chronic respiratory failure with hypercapnia; J96.22 - Acute and chronic respiratory failure with hypercapnia; J96.22 - Acute and chronic respiratory failure with hypercapnia Physician Review: Patient Assessed, Agree with Above Assessment and Plan
--- NOTE | 2017-08-04 20:11 | RAD REPORT ---
EXAM DESCRIPTION: US - Liver Only - 08/04/2017 7:25 pm CLINICAL HISTORY: Hepatitis COMPARISON: None. TECHNIQUE: Sonographic evaluation of the right upper quadrant was performed as a dedicated liver ult rasound study. FINDINGS: Liver is prominent in size measuring 17 cm in maximum dimension. Liver shows a coarsened e chogenicity that is nonspecific but can reflect fatty infiltration or diffuse hepatic parenchymal dis ease. No focal liver lesion. There is slight nodularity to the liver capsule. No ascites identified. Gallbladder is absent. Biliary tree within normal limits. IMPRESSION: Suspected fatty infiltration or diffuse hepatic parenchymal disease. No focal liver lesi on.
[2017-08-05] MEDS: IPRATROPIUM BROM 0.5MG/2.5ML NEB SCH ×4 (01:36→19:30)
[2017-08-05] MEDS: PANTOPRAZOLE 40MG TABLET PO SCH (06:23)
[2017-08-05] MEDS: INSULIN -REGULAR HUMAN 50 UNIT/0.5 ML ML SQ SCH ×4 (07:30→21:00)
[2017-08-05] MEDS: CEFTRIAXONE/SWI 1gm 1 GM/10 ML SYR IV SCH (10:00)
[2017-08-05] MEDS: VENLAFAXINE HCL XR 75 MG CAP PO SCH (10:01)
[2017-08-05] MEDS: MAGNESIUM OXIDE 400 MG TAB PO SCH ×2 (10:01→21:28)
[2017-08-05] MEDS: MONTELUKAST 10 MG TAB PO SCH (10:01)
[2017-08-05] MEDS: SPIRONOLACTONE 25 MG TABLET PO SCH (10:01)
[2017-08-05] MEDS: ACETAZOLAMIDE 500 MG IV IV SCH ×2 (10:02→21:28)
[2017-08-05] MEDS: LORATADINE 10 MG TAB PO SCH (10:02)
[2017-08-05] MEDS: APIXABAN 5 MG TABLET PO SCH ×2 (10:02→21:28)
[2017-08-05] MEDS: ASPIRIN 81 MG CHEWABLE TABLET PO SCH (10:02)
[2017-08-05] MEDS: SILDENAFIL CITRATE 20 MG TABLET PO SCH ×3 (10:02→21:28)
[2017-08-05] MEDS: FUROSEMIDE 40 MG TABLET PO SCH ×2 (10:02→18:31)
--- NOTE | 2017-08-05 12:40 | P.PN ---
Subjective Date of Service: 08/05/17 Primary Care Provider: Tray Chief Complaint: Respiratory failure. Subjective: No new changes Review of Systems 10-point ROS is otherwise unremarkable ENT: Other (had a nasal bleed last night. controlled) Physical Examination - Vital Signs Temperature: 96.9 F Blood Pressure: 137/67 Pulse: 106 Respirations: 18 Pulse Ox (%): 93 - Physical Exam General: Alert, In no apparent distress HEENT: Atraumatic, PERRLA, Other (nasal packing in place.), EOMI Neck: Supple, JVD not distended Respiratory: Clear to auscultation bilaterally, Normal air movement Cardiovascular: Regular rate/rhythm, Normal S1 S2 Gastrointestinal: Normal bowel sounds, No tenderness Musculoskeletal: No tenderness Integumentary: No rashes Neurological: Normal speech, Normal tone, Normal affect Lymphatics: No axilla or inguinal lymphadenopathy Assessment & Plan - Problems (Diagnosis) (1) Respiratory failure with hypercapnia Onset Date: 08/02/17 Current Visit: Yes Status: Acute Plan: improving will keep her off the cpap. Start her on PT. Qualifiers: Chronicity: acute on chronic Qualified Code(s): J96.22 - Acute and chronic respiratory failure with hypercapnia (2) Congestive heart failure, diastolic, left, w/preserved LV function, NYHA class 4 Onset Date: 05/27/17 Current Visit: No Status: Chronic Plan: Patient has an elevated troponins. Have discussed with Dr. Cordon. Will get a echocardiogram. If she worsens we may cath her this week. Start the patient on lovenox 1mg/kg till seen by Dr. Cordon. Will hold the elquis at this time. (3) Pulmonary hypertension Current Visit: No Status: Chronic Plan: Will keep her on the bipap. Continue monitoring her electolytes and CMP. Gentle hydrate the patient and correct electrolye imbalances. possible [facility] admission for deconditioning (4) Venous ulcer of left leg Onset Date: 08/02/17 Current Visit: Yes Status: Acute Plan: Chronic problem being seen in the wound care center. Will hold the antibiotics. Continue dressing changes. (5) Body mass index (BMI) of 50-59.9 in adult Onset Date: 08/02/17 Current Visit: Yes Status: Acute Plan: Will need to keep the patient on fall precautions. Once able will get a pt assesment on the patient Discharge Plan: Home - Code Status/Comfort Care Code Status Assessed: No Code Status: Full Code Physician Review: Patient Assessed, Agree with Above Assessment and Plan Critical Care: No Time Spent Managing Pts Care (In Minutes): 25
[2017-08-06] MEDS: IPRATROPIUM BROM 0.5MG/2.5ML NEB SCH ×4 (01:55→19:25)
[2017-08-06] MEDS: PANTOPRAZOLE 40MG TABLET PO SCH (05:41)
[2017-08-06] MEDS: INSULIN -REGULAR HUMAN 50 UNIT/0.5 ML ML SQ SCH ×4 (07:30→21:54)
[2017-08-06] MEDS: SILDENAFIL CITRATE 20 MG TABLET PO SCH ×3 (09:00→21:53)
[2017-08-06] MEDS: MAGNESIUM OXIDE 400 MG TAB PO SCH ×2 (09:27→21:53)
[2017-08-06] MEDS: APIXABAN 5 MG TABLET PO SCH ×2 (09:27→21:53)
[2017-08-06] MEDS: FUROSEMIDE 40 MG TABLET PO SCH ×2 (09:27→17:49)
[2017-08-06] MEDS: CEFTRIAXONE/SWI 1gm 1 GM/10 ML SYR IV SCH (09:27)
[2017-08-06] MEDS: LORATADINE 10 MG TAB PO SCH (09:27)
[2017-08-06] MEDS: VENLAFAXINE HCL XR 75 MG CAP PO SCH (09:27)
[2017-08-06] MEDS: MONTELUKAST 10 MG TAB PO SCH (09:28)
[2017-08-06] MEDS: ASPIRIN 81 MG CHEWABLE TABLET PO SCH (09:28)
[2017-08-06] MEDS: SPIRONOLACTONE 25 MG TABLET PO SCH (09:28)
[2017-08-06] MEDS: ACETAZOLAMIDE 500 MG IV IV SCH ×2 (09:29→21:54)
--- NOTE | 2017-08-06 12:36 | P.PN ---
Subjective Date of Service: 08/06/17 Primary Care Provider: Tray Chief Complaint: Respiratory failure. Subjective: No new changes Review of Systems 10-point ROS is otherwise unremarkable ENT: Nose Pain (Patient has some blood from her nose) Physical Examination - Vital Signs Temperature: 97.4 F Blood Pressure: 135/63 Pulse: 103 Respirations: 18 Pulse Ox (%): 93 - Physical Exam General: Alert, In no apparent distress HEENT: Atraumatic, PERRLA, Other (spotting from her nose. ), EOMI Neck: Supple, JVD not distended Respiratory: Clear to auscultation bilaterally, Normal air movement Cardiovascular: Regular rate/rhythm, Normal S1 S2 Gastrointestinal: Normal bowel sounds, No tenderness Musculoskeletal: No tenderness Integumentary: No rashes Neurological: Normal speech, Normal tone, Normal affect Lymphatics: No axilla or inguinal lymphadenopathy Assessment & Plan - Problems (Diagnosis) (1) Respiratory failure with hypercapnia Onset Date: 08/02/17 Current Visit: Yes Status: Acute Plan: improving will keep her off the cpap. Start her on PT. Qualifiers: Chronicity: acute on chronic Qualified Code(s): J96.22 - Acute and chronic respiratory failure with hypercapnia (2) Congestive heart failure, diastolic, left, w/preserved LV function, NYHA class 4 Onset Date: 05/27/17 Current Visit: No Status: Chronic Plan: Patient has an elevated troponins. Have discussed with Dr. Cordon. Will get a echocardiogram. If she worsens we may cath her this week. Start the patient on lovenox 1mg/kg till seen by Dr. Cordon. Will hold the elquis at this time. (3) Pulmonary hypertension Current Visit: No Status: Chronic Plan: Will keep her on the bipap. Continue monitoring her electolytes and CMP. Gentle hydrate the patient and correct electrolye imbalances. possible [facility] admission for deconditioning (4) Venous ulcer of left leg Onset Date: 08/02/17 Current Visit: Yes Status: Acute Plan: Chronic problem being seen in the wound care center. Will hold the antibiotics. Continue dressing changes. (5) Body mass index (BMI) of 50-59.9 in adult Onset Date: 08/02/17 Current Visit: Yes Status: Acute Plan: Will need to keep the patient on fall precautions. Once able will get a pt assesment on the patient (6) Epistaxis not due to trauma Current Visit: Yes Status: Acute Plan: will consult Dr. Washington - Code Status/Comfort Care Code Status Assessed: No Code Status: Full Code Physician Review: Patient Assessed, Agree with Above Assessment and Plan Critical Care: No Time Spent Managing Pts Care (In Minutes): 25
[2017-08-07] MEDS: IPRATROPIUM BROM 0.5MG/2.5ML NEB SCH ×4 (01:46→19:25)
[2017-08-07] MEDS: PANTOPRAZOLE 40MG TABLET PO SCH (06:11)
[2017-08-07 06:20] LABS: Absolute Lymphocytes (CBC) 1.5 K/uL (0.7-4.9); Absolute Monocytes 0.8 K/uL (0.1-1.3); Absolute Neutrophil 5.5 K/uL (1.8-8.0); Basophils % 1.2 % (0-1.3); Hematocrit 36.1 % (36.0-45.0); Lymphocytes % 18.2 % (15.3-44.8); MCH 24.6 pg (27.0-35.0); MCV 77.8 fL (80-100); MPV 8.2 fL (7.6-11.3); Monocytes % 10.3 % (3.3-12.3); RBC Red Blood Cell Count 4.64 M/uL (3.86-4.86)
[2017-08-07 07:11] LABS: Potassium 3.4 mEq/L (3.6-5.0)
[2017-08-07] MEDS: INSULIN -REGULAR HUMAN 50 UNIT/0.5 ML ML SQ SCH ×4 (07:30→22:27)
--- NOTE | 2017-08-07 08:46 | P.PN ---
Subjective Date of Service: 08/07/17 Primary Care Provider: Tray Chief Complaint: Respiratory failure. Subjective: No new changes Review of Systems 10-point ROS is otherwise unremarkable Physical Examination - Vital Signs Temperature: 97.6 F Blood Pressure: 135/66 Pulse: 18 Respirations: 18 Pulse Ox (%): 90 - Physical Exam General: Alert, In no apparent distress HEENT: Atraumatic, PERRLA, EOMI Neck: Supple, JVD not distended Respiratory: Clear to auscultation bilaterally, Normal air movement Cardiovascular: Regular rate/rhythm, Normal S1 S2 Gastrointestinal: Normal bowel sounds, No tenderness Musculoskeletal: No tenderness Integumentary: No rashes Neurological: Normal speech, Normal tone, Normal affect Lymphatics: No axilla or inguinal lymphadenopathy - Studies Microbiology Data (last 24 hrs): 08/01/17 13:50 Blood - Other Aerobic Blood Culture - Final No growth in 5 days. 08/01/17 13:50 Blood - Other Anaerobic Blood Culture - Final No growth in 5 days. 08/01/17 13:50 Blood - Other Aerobic Blood Culture - Final No growth in 5 days. 08/01/17 13:50 Blood - Other Anaerobic Blood Culture - Final No growth in 5 days. Assessment & Plan - Problems (Diagnosis) (1) Respiratory failure with hypercapnia Onset Date: 08/02/17 Current Visit: Yes Status: Acute Plan: improving will keep her off the cpap. Start her on PT. Qualifiers: Chronicity: acute on chronic Qualified Code(s): J96.22 - Acute and chronic respiratory failure with hypercapnia (2) Congestive heart failure, diastolic, left, w/preserved LV function, NYHA class 4 Onset Date: 05/27/17 Current Visit: No Status: Chronic Plan: Patient has an elevated troponins. Have discussed with Dr. Cordon. Will get a echocardiogram. If she worsens we may cath her this week. Start the patient on lovenox 1mg/kg till seen by Dr. Cordon. Will hold the elquis at this time. (3) Pulmonary hypertension Current Visit: No Status: Chronic Plan: Patient on venti mask. pco2 is good. Continue diamox. She is very deconditioned. Will try to transfer to [facility] tomorrow. (4) Venous ulcer of left leg Onset Date: 08/02/17 Current Visit: Yes Status: Acute Plan: Chronic problem being seen in the wound care center. Will hold the antibiotics. Continue dressing changes. (5) Body mass index (BMI) of 50-59.9 in adult Onset Date: 08/02/17 Current Visit: Yes Status: Acute Plan: Will need to keep the patient on fall precautions. Once able will get a pt assesment on the patient (6) Epistaxis not due to trauma Current Visit: Yes Status: Acute Plan: Patient is well controlled. Cont treatment as per Dr. Washington. Discharge Plan: LTAC Physician Review: Patient Assessed, Agree with Above Assessment and Plan Critical Care: No Time Spent Managing Pts Care (In Minutes): 25
[2017-08-07] MEDS ORDERED: POTASSIUM 25 MEQ EFFERV TAB PO ONE ×2 (09:00→21:00)
[2017-08-07] MEDS: VENLAFAXINE HCL XR 75 MG CAP PO SCH (09:00)
[2017-08-07] MEDS: SILDENAFIL CITRATE 20 MG TABLET PO SCH ×3 (10:26→22:26)
[2017-08-07] MEDS: FUROSEMIDE 40 MG TABLET PO SCH ×2 (10:26→17:49)
[2017-08-07] MEDS: MAGNESIUM OXIDE 400 MG TAB PO SCH ×2 (10:28→22:25)
[2017-08-07] MEDS: MONTELUKAST 10 MG TAB PO SCH (10:28)
[2017-08-07] MEDS: SPIRONOLACTONE 25 MG TABLET PO SCH (10:28)
[2017-08-07] MEDS: APIXABAN 5 MG TABLET PO SCH ×2 (10:28→22:33)
[2017-08-07] MEDS: ASPIRIN 81 MG CHEWABLE TABLET PO SCH (10:29)
[2017-08-07] MEDS: LORATADINE 10 MG TAB PO SCH (10:29)
[2017-08-07] MEDS: ACETAZOLAMIDE 500 MG IV IV SCH ×2 (10:30→22:26)
[2017-08-07] MEDS: CEFTRIAXONE/SWI 1gm 1 GM/10 ML SYR IV SCH (10:31)
[2017-08-07 12:56] VITALS: BMI 47.6
[2017-08-08] MEDS: PANTOPRAZOLE 40MG TABLET PO SCH (06:00)
[2017-08-08 06:26] LABS: Absolute Lymphocytes (CBC) 1.5 K/uL (0.7-4.9); Absolute Monocytes 0.9 K/uL (0.1-1.3); Absolute Neutrophil 5.2 K/uL (1.8-8.0); Basophils % 1.3 % (0-1.3); Eosinophils % 2.1 % (0-4.4); Hematocrit 35.6 % (36.0-45.0); Lymphocytes % 18.9 % (15.3-44.8); MCH 24.3 pg (27.0-35.0); MCV 78.2 fL (80-100); MPV 8.4 fL (7.6-11.3); Monocytes % 11.2 % (3.3-12.3); RBC Red Blood Cell Count 4.56 M/uL (3.86-4.86)
[2017-08-08 06:39] LABS: Potassium 3.7 mEq/L (3.6-5.0)
[2017-08-08 06:58] LABS: Anisocytosis 1+; Blood Morphology Comment NOTED (NOT SEEN); Macrocytosis SLIGHT; Platelet Estimate ADEQ; Urine White Blood Cell Casts OK
[2017-08-08] MEDS: INSULIN -REGULAR HUMAN 50 UNIT/0.5 ML ML SQ SCH ×4 (07:30→21:00)
--- NOTE | 2017-08-08 07:36 | P.CNS ---
Date of Consult: 08/07/17 CC: consulted for epistaxis HPI: Patient with pulmonary HTN and chronic oxygen use at home and here in the hospital. History of epistaxis with cauterization by Dr. Wen a few years ago. Unable to review those records at this time. Patient admitted and was on oxygen without humidification and had some nasal bleeding. No active bleeding at the time of the evaluation. PMH/PSH/ALL/MED/SH/ROS reviewed from medical record PE: NAD. Sitting up. Venti mask in place for oxygen. Nares with crusted, dried blood. Moderate septal perforation. A: Epistaxis, septal perforation, need for chronic oxygen supplementation P: NSS at least 4 times daily, nasal emollients at bedtime, use humidification with all oxygen supplementation. Return to Dr. Washington's office for bleeding in the future.
[2017-08-08] MEDS: IPRATROPIUM BROM 0.5MG/2.5ML NEB SCH ×3 (07:50→20:02)
[2017-08-08] MEDS ORDERED: POTASSIUM 25 MEQ EFFERV TAB PO ONE (09:00)
[2017-08-08] MEDS: SOD CHLORIDE 0.65% NASAL SPRAY NAS SCH ×4 (09:00→21:28)
--- NOTE | 2017-08-08 09:15 | P.PN ---
Subjective Date of Service: 08/08/17 Primary Care Provider: Tray Chief Complaint: Respiratory failure. Subjective: No new changes Review of Systems General: Weakness Physical Examination - Vital Signs Temperature: 97.4 F Blood Pressure: 129/68 Pulse: 105 Respirations: 18 Pulse Ox (%): 86 - Physical Exam General: Alert, In no apparent distress HEENT: Atraumatic, PERRLA, EOMI Neck: Supple, JVD not distended Respiratory: Clear to auscultation bilaterally, Normal air movement Cardiovascular: Regular rate/rhythm, Normal S1 S2 Gastrointestinal: Normal bowel sounds, No tenderness Musculoskeletal: No tenderness Integumentary: No rashes Neurological: Normal speech, Normal tone, Normal affect Lymphatics: No axilla or inguinal lymphadenopathy Assessment & Plan - Problems (Diagnosis) (1) Respiratory failure with hypercapnia Onset Date: 08/02/17 Current Visit: Yes Status: Acute Plan: improving will keep her off the cpap. Start her on PT. Qualifiers: Chronicity: acute on chronic Qualified Code(s): J96.22 - Acute and chronic respiratory failure with hypercapnia (2) Congestive heart failure, diastolic, left, w/preserved LV function, NYHA class 4 Onset Date: 05/27/17 Current Visit: No Status: Chronic Plan: Doing better. Plan for inpatient rehab today. (3) Pulmonary hypertension Current Visit: No Status: Chronic Plan: Patient on venti mask. pco2 is good. Continue diamox. She is very deconditioned. Will try to transfer to [facility] tomorrow. (4) Venous ulcer of left leg Onset Date: 08/02/17 Current Visit: Yes Status: Acute Plan: Chronic problem being seen in the wound care center. Will hold the antibiotics. Continue dressing changes. (5) Body mass index (BMI) of 50-59.9 in adult Onset Date: 08/02/17 Current Visit: Yes Status: Acute Plan: Will need to keep the patient on fall precautions. Once able will get a pt assesment on the patient (6) Epistaxis not due to trauma Current Visit: Yes Status: Acute Plan: Patient is well controlled. Cont treatment as per Dr. Washington. Discharge Plan: LTAC Plan to discharge in: 24 Hours - Code Status/Comfort Care Code Status Assessed: No Code Status: Full Code Physician Review: Patient Assessed, Agree with Above Assessment and Plan Critical Care: No Time Spent Managing Pts Care (In Minutes): 20
[2017-08-08] MEDS: SILDENAFIL CITRATE 20 MG TABLET PO SCH ×3 (09:54→21:00)
[2017-08-08] MEDS: ACETAZOLAMIDE 500 MG IV IV SCH ×2 (09:54→21:25)
[2017-08-08] MEDS: APIXABAN 5 MG TABLET PO SCH ×2 (09:55→21:26)
[2017-08-08] MEDS: MONTELUKAST 10 MG TAB PO SCH (09:55)
[2017-08-08] MEDS: FUROSEMIDE 40 MG TABLET PO SCH ×2 (09:55→17:16)
[2017-08-08] MEDS: VENLAFAXINE HCL XR 75 MG CAP PO SCH (09:55)
[2017-08-08] MEDS: MAGNESIUM OXIDE 400 MG TAB PO SCH ×2 (09:55→21:26)
[2017-08-08] MEDS: LORATADINE 10 MG TAB PO SCH (09:56)
[2017-08-08] MEDS: ASPIRIN 81 MG CHEWABLE TABLET PO SCH (09:56)
[2017-08-08] MEDS: SPIRONOLACTONE 25 MG TABLET PO SCH (09:56)
[2017-08-09] MEDS: IPRATROPIUM BROM 0.5MG/2.5ML NEB SCH ×4 (02:17→19:53)
[2017-08-09 05:32] LABS: Absolute Lymphocytes (CBC) 1.6 K/uL (0.7-4.9); Absolute Monocytes 0.9 K/uL (0.1-1.3); Absolute Neutrophil 4.9 K/uL (1.8-8.0); Basophils % 1.1 % (0-1.3); Eosinophils % 2.3 % (0-4.4); Hematocrit 35.3 % (36.0-45.0); MCH 24.8 pg (27.0-35.0); MCV 78.2 fL (80-100); MPV 8.5 fL (7.6-11.3); Monocytes % 11.8 % (3.3-12.3); RBC Red Blood Cell Count 4.51 M/uL (3.86-4.86)
[2017-08-09 05:45] LABS: Potassium 3.5 mEq/L (3.6-5.0)
[2017-08-09] MEDS: PANTOPRAZOLE 40MG TABLET PO SCH (06:15)
[2017-08-09] MEDS ORDERED: POTASSIUM 25 MEQ EFFERV TAB PO ONE (06:21)
[2017-08-09] MEDS: INSULIN -REGULAR HUMAN 50 UNIT/0.5 ML ML SQ SCH ×4 (07:30→21:00)
[2017-08-09] MEDS: SOD CHLORIDE 0.65% NASAL SPRAY NAS SCH ×4 (09:00→21:00)
[2017-08-09] MEDS: ACETAZOLAMIDE 500 MG IV IV SCH ×2 (09:20→21:30)
[2017-08-09] MEDS: VENLAFAXINE HCL XR 75 MG CAP PO SCH (09:20)
[2017-08-09] MEDS: FUROSEMIDE 40 MG TABLET PO SCH ×2 (09:20→18:30)
[2017-08-09] MEDS: LORATADINE 10 MG TAB PO SCH (09:20)
[2017-08-09] MEDS: APIXABAN 5 MG TABLET PO SCH ×2 (09:21→21:32)
[2017-08-09] MEDS: SPIRONOLACTONE 25 MG TABLET PO SCH (09:21)
[2017-08-09] MEDS: ASPIRIN 81 MG CHEWABLE TABLET PO SCH (09:21)
[2017-08-09] MEDS: MONTELUKAST 10 MG TAB PO SCH (09:22)
[2017-08-09] MEDS: MAGNESIUM OXIDE 400 MG TAB PO SCH ×2 (09:22→21:32)
--- NOTE | 2017-08-09 09:59 | P.PN ---
Subjective Date of Service: 08/09/17 Primary Care Provider: Tray Chief Complaint: Respiratory failure. Subjective: No new changes Review of Systems 10-point ROS is otherwise unremarkable Physical Examination - Vital Signs Temperature: 96.9 F Blood Pressure: 131/63 Pulse: 101 Respirations: 18 Pulse Ox (%): 94 - Physical Exam General: Alert, In no apparent distress HEENT: Atraumatic, PERRLA, EOMI Neck: Supple, JVD not distended Respiratory: Clear to auscultation bilaterally, Normal air movement Cardiovascular: Regular rate/rhythm, Normal S1 S2 Gastrointestinal: Normal bowel sounds, No tenderness Musculoskeletal: No tenderness Integumentary: No rashes Neurological: Normal speech, Normal tone, Normal affect Lymphatics: No axilla or inguinal lymphadenopathy Assessment & Plan - Problems (Diagnosis) (1) Respiratory failure with hypercapnia Onset Date: 08/02/17 Current Visit: Yes Status: Acute Plan: improving will keep her off the cpap. Start her on PT. Qualifiers: Chronicity: acute on chronic Qualified Code(s): J96.22 - Acute and chronic respiratory failure with hypercapnia (2) Congestive heart failure, diastolic, left, w/preserved LV function, NYHA class 4 Onset Date: 05/27/17 Current Visit: No Status: Chronic Plan: Doing better. Plan for inpatient rehab today. (3) Pulmonary hypertension Current Visit: No Status: Chronic Plan: Patient on venti mask. pco2 is good. Continue diamox. She is very deconditioned. Will try to transfer to [facility] tomorrow. (4) Venous ulcer of left leg Onset Date: 08/02/17 Current Visit: Yes Status: Acute Plan: Chronic problem being seen in the wound care center. Will hold the antibiotics. Continue dressing changes. (5) Body mass index (BMI) of 50-59.9 in adult Onset Date: 08/02/17 Current Visit: Yes Status: Acute Plan: Will need to keep the patient on fall precautions. Once able will get a pt assesment on the patient (6) Epistaxis not due to trauma Current Visit: Yes Status: Acute Plan: Patient is well controlled. Cont treatment as per Dr. Washington. Discharge Plan: LTAC Plan to discharge in: 24 Hours - Code Status/Comfort Care Code Status Assessed: No Code Status: Full Code Physician Review: Patient Assessed, Agree with Above Assessment and Plan Critical Care: No Time Spent Managing Pts Care (In Minutes): 25
[2017-08-09] MEDS: SILDENAFIL CITRATE 20 MG TABLET PO SCH ×3 (13:26→21:32)
[2017-08-10] MEDS: IPRATROPIUM BROM 0.5MG/2.5ML NEB SCH ×3 (02:18→15:02)
[2017-08-10] MEDS: PANTOPRAZOLE 40MG TABLET PO SCH (06:16)
[2017-08-10] MEDS: INSULIN -REGULAR HUMAN 50 UNIT/0.5 ML ML SQ SCH ×3 (07:30→16:24)
--- NOTE | 2017-08-10 08:44 | P.PN ---
Subjective Date of Service: 08/10/17 Primary Care Provider: Tray Chief Complaint: Respiratory failure. Subjective: No new changes Review of Systems 10-point ROS is otherwise unremarkable Physical Examination - Vital Signs Temperature: 98.5 F Blood Pressure: 109/50 Pulse: 96 Respirations: 18 Pulse Ox (%): 95 - Physical Exam General: Alert, In no apparent distress HEENT: Atraumatic, PERRLA, EOMI Neck: Supple, JVD not distended Respiratory: Clear to auscultation bilaterally, Normal air movement Cardiovascular: Regular rate/rhythm, Normal S1 S2 Gastrointestinal: Normal bowel sounds, No tenderness Musculoskeletal: No tenderness Integumentary: No rashes Neurological: Normal speech, Normal tone, Normal affect Lymphatics: No axilla or inguinal lymphadenopathy Assessment & Plan - Problems (Diagnosis) (1) Respiratory failure with hypercapnia Onset Date: 08/02/17 Current Visit: Yes Status: Acute Plan: improving will keep her off the cpap. Start her on PT. Qualifiers: Chronicity: acute on chronic Qualified Code(s): J96.22 - Acute and chronic respiratory failure with hypercapnia (2) Congestive heart failure, diastolic, left, w/preserved LV function, NYHA class 4 Onset Date: 05/27/17 Current Visit: No Status: Chronic Plan: Have discussed the patient in a peer to peer with Dr. Tripathi. Will approve a snf for her chf, pulm htn, lymphodema. Have discussed with the patient. She choose [place] in [place]. (3) Pulmonary hypertension Current Visit: No Status: Chronic Plan: Patient on venti mask. pco2 is good. Continue diamox. She is very deconditioned. Will try to transfer to [facility] tomorrow. (4) Venous ulcer of left leg Onset Date: 08/02/17 Current Visit: Yes Status: Acute Plan: Chronic problem being seen in the wound care center. Will hold the antibiotics. Continue dressing changes. (5) Body mass index (BMI) of 50-59.9 in adult Onset Date: 08/02/17 Current Visit: Yes Status: Acute Plan: Will need to keep the patient on fall precautions. Once able will get a pt assesment on the patient (6) Epistaxis not due to trauma Current Visit: Yes Status: Acute Plan: Patient is well controlled. Cont treatment as per Dr. Washington. Discharge Plan: LTAC Plan to discharge in: 24 Hours - Code Status/Comfort Care Code Status Assessed: No Code Status: Full Code Physician Review: Patient Assessed, Agree with Above Assessment and Plan Critical Care: No Time Spent Managing Pts Care (In Minutes): 25
[2017-08-10] MEDS: FUROSEMIDE 40 MG TABLET PO SCH ×2 (08:46→16:42)
[2017-08-10] MEDS: MAGNESIUM OXIDE 400 MG TAB PO SCH (08:46)
[2017-08-10] MEDS: LORATADINE 10 MG TAB PO SCH (08:46)
[2017-08-10] MEDS: APIXABAN 5 MG TABLET PO SCH (08:47)
[2017-08-10] MEDS: SOD CHLORIDE 0.65% NASAL SPRAY NAS SCH ×3 (08:47→16:42)
[2017-08-10] MEDS: SILDENAFIL CITRATE 20 MG TABLET PO SCH ×2 (08:47→14:00)
[2017-08-10] MEDS: MONTELUKAST 10 MG TAB PO SCH (08:47)
[2017-08-10] MEDS: SPIRONOLACTONE 25 MG TABLET PO SCH (08:47)
[2017-08-10] MEDS: ASPIRIN 81 MG CHEWABLE TABLET PO SCH (08:47)
[2017-08-10] MEDS: ACETAZOLAMIDE 500 MG IV IV SCH (08:48)
[2017-08-10] MEDS: VENLAFAXINE HCL XR 75 MG CAP PO SCH (08:48)
[2017-08-10 10:43] VITALS: O2SAT 93
--- NOTE | 2017-08-10 14:19 | P.DS ---
Admission Date: 08/01/17 Discharge Date: 08/10/17 Primary Care Provider: Tray Disposition: ROUTINE DISCHARGE Discharge Condition: FAIR Reason for Admission: Respiratory failure. - Problems (1) Respiratory failure with hypercapnia Onset Date: 08/02/17 Current Visit: Yes Status: Acute Qualifiers: Chronicity: acute on chronic Qualified Code(s): J96.22 - Acute and chronic respiratory failure with hypercapnia (2) Congestive heart failure, diastolic, left, w/preserved LV function, NYHA class 4 Onset Date: 05/27/17 Current Visit: No Status: Chronic (3) Pulmonary hypertension Current Visit: No Status: Chronic (4) Venous ulcer of left leg Onset Date: 08/02/17 Current Visit: Yes Status: Acute (5) Body mass index (BMI) of 50-59.9 in adult Onset Date: 08/02/17 Current Visit: Yes Status: Acute (6) Epistaxis not due to trauma Current Visit: Yes Status: Acute Brief History of Present Illness: Patient is a well known to me. She was found to be obtunded by her home health nurse and was sent to the ER. The patient cannot stay awake long enough to answer questions. She has an aunt at the bedside who provided most of the histoy. States she was in her bed. She fell and was very drowsy. The home nurse noticed that her oxygen saturation was low and called ems. The aunt does not recall the patient having any recent complaints such as fever or chills. Hospital Course: Patient presented with acute on chronic respiratory failure. She improved on bipap and diamox. Was seen by Dr. Cordon and Dr. Dimas. She did develop a nose bleed which Dr. Washington was consulted and able to control We tried to get her into inpatient rehab. Unfortunately she did not qualify. She did qualify for snf. Unfortuanatly the snf facility has 5 days to approve. So will discharge her home with home health and PT/OT. Hopefully she can get into the SNF as an outpatient. Vital Signs/Physical Exam: Temp Pulse Resp BP Pulse Ox 97.0 F 104 H 18 107/61 94 08/10/17 12:00 08/10/17 12:00 08/10/17 12:00 08/10/17 12:00 08/10/17 12:00 General: Alert, In no apparent distress HEENT: Atraumatic, PERRLA, EOMI Neck: Supple, JVD not distended Respiratory: Clear to auscultation bilaterally, Normal air movement Cardiovascular: Regular rate/rhythm, Normal S1 S2 Gastrointestinal: Normal bowel sounds, No tenderness Musculoskeletal: No tenderness Integumentary: No rashes Neurological: Normal speech, Normal tone, Normal affect Lymphatics: No axilla or inguinal lymphadenopathy Laboratory Data at Discharge: WBC 7.7 K/uL (4.3-10.9) 08/09/17 05:06 Hgb 11.2 g/dL (12.0-15.0) L 08/09/17 05:06 Hct 35.3 % (36.0-45.0) L 08/09/17 05:06 Plt Count 291 K/uL (152-406) 08/09/17 05:06 PT 16.6 SECONDS (9.5-12.5) H 08/01/17 13:50 INR 1.40 08/01/17 13:50 APTT 26.6 SECONDS (24.3-36.9) 08/01/17 13:50 Sodium 138 mEq/L (135-145) 08/09/17 05:06 Potassium 3.5 mEq/L (3.6-5.0) L 08/09/17 05:06 BUN 31 mg/dL (6-20) H 08/09/17 05:06 Creatinine 1.16 mg/dL (0.44-1.00) H 08/09/17 05:06 Glucose 122 mg/dL (65-120) H 08/09/17 05:06 Magnesium 1.4 mg/dL (1.8-2.5) L* 08/04/17 05:23 Total Bilirubin 0.9 mg/dL (0.3-1.2) 08/04/17 05:23 AST 625 IU/L (10-42) H* D 08/04/17 05:23 ALT 896 IU/L (10-60) H* D 08/04/17 05:23 Alkaline Phosphatase 106 IU/L (42-121) 08/04/17 05:23 B-Natriuretic Peptide 323 pg/ml (<=100) H 08/01/17 13:50 Triglycerides 122 mg/dL (35-160) 08/02/17 05:35 Cholesterol 165 mg/dL (<200) 08/02/17 05:35 HDL Cholesterol 39 mg/dL (29-89) 08/02/17 05:35 Cholesterol/HDL Ratio 4.23 08/02/17 05:35 Home Medications: Venlafaxine HCl [Venlafaxine HCl ER] 150 mg PO DAILY 06/30/12 Prednisone 5 mg PO DAILY 10/12/15 Furosemide [Lasix*] 4 tab PO BID 08/17/16 Magnesium Oxide [Mag 0X Tab] 400 mg PO BID 08/17/16 Spironolactone [Aldactone*] 25 mg PO DAILY 08/17/16 Apixaban [Eliquis] 5 mg PO BID 01/15/17 Montelukast [Singulair*] 10 mg PO DAILY 01/15/17 Loratadine [Claritin] 10 mg PO DAILY 03/29/17 Linaclotide [Linzess] 145 mcg PO DAILY 05/27/17 Sildenafil Citrate [Sildenafil] 20 mg PO TID 05/27/17 Acetazolamide [Diamox] 250 mg PO BID #180 tab 08/10/17 New Medications: Acetazolamide [Diamox] 250 mg PO BID #180 tab Diet: AHA Activity: Ad [facility] Followup: Jamie Feliz MD [ACTIVE - CAN ADMIT] - 1-2 Weeks Jorden Marsh MD [ACTIVE - CAN ADMIT] - 1-2 Weeks Time spent managing pt's care (in minutes): 60
[2017-08-10 16:42] VITALS: BP 121/70
[2017-08-10 17:01] VITALS: TEMP 97.2
== END 2017-08-10 18:42 | disposition home health service (06) | DRG 189 ==
LOC: ER 13:07 → ERHOLD 15:43 → 2ND 17:47
PROVIDERS: ADMIT Internal Medicine; ATTEND Internal Medicine
PROC: 5A09357 Assistance with Respiratory Ventilation, Less than 24 Consecutive Hours, Continuous Positive Airway Pressure (ICD-10-PCS; principal; 2017-08-01)
DX: J96.21 Acute and chronic respiratory failure with hypoxia (principal); I50.32 Chronic diastolic (congestive) heart failure; Z68.43 Body mass index [BMI] 50.0-59.9, adult; R04.0 Epistaxis; I27.20 Pulmonary hypertension, unspecified; J96.22 Acute and chronic respiratory failure with hypercapnia; I83.029 Varicose veins of left lower extremity with ulcer of unspecified site; J44.9 Chronic obstructive pulmonary disease, unspecified; K21.9 Gastro-esophageal reflux disease without esophagitis; R00.0 Tachycardia, unspecified; I45.10 Unspecified right bundle-branch block
CPT/HCPCS: 36415; 71045; 76705; 80048; 80053; 80061; 80074; 80076; 81001; 82550; 82553; 82805; 82962; 83605; 83735; 83880; 84132; 84145; 84443; 84484; 85025; 85610; 85730; 87040; 87070; 87077; 87186; 87205; 93005; 93306; 94640; 94660; 96374; 96375; 97163; 99285; J0696; J1120; J1650; J3370; J3475; J7030

== ENCOUNTER 2017-12-29 14:59 | Emergency (ER) | payer MEDICARE ==
--- OUTSIDE RECORDS SUMMARY | 2017-12-29 15:01 | XMS REPORT | Clinical Summary ---
:1960 Author Organization [facility] Address [address] [place] [address] Care Team Providers Name Role Phone Angela Dee MD Primary Care Provider Allergies No Known Allergies Current Medications Prescription Sig. Disp. Refills Start Date End Date Status aspirin (ECOTRIN) Take 81 mg by Active 81 MG enteric mouth daily. coated tablet omeprazole Take 20 mg by Active (PriLOSEC) 20 MG mouth daily. capsule magnesium oxide Take 400 mg Active (MAG-OX) 400 mg by mouth tablet daily. albuterol (PROAIR Inhale 2 18 g 0 09/03/2016 Active HFA,PROVENTIL puffs every 6 HFA,VENTOLIN HFA) (six) hours 90 mcg/actuation as needed for inhaler wheezing. venlafaxine XR Take 1 6 capsule 0 09/17/2016 Active (EFFEXOR-XR) 150 MG capsule (150 24 hr mg total) by capsuleIndications: mouth daily. Heart failure, unspecified heart failure chronicity, unspecified heart failure type sildenafil Take 1 tablet 270 tablet 3 10/15/2016 Active (REVATIO) 20 mg (20 mg total) tablet by mouth 3 (three) times a day. budesonide-formoter Inhale 2 1 Inhaler 6 10/31/2016 Active ol (SYMBICORT) puffs 2 (two) 160-4.5 times a day. mcg/actuation inhaler pantoprazole Take 20 mg by Active (PROTONIX) 20 MG EC mouth daily. tablet LORATADINE Take by Active (CLARITIN ORAL) mouth. linaclotide Take 145 mcg Active (LINZESS) 145 mcg by mouth capsule daily before breakfast. furosemide (LASIX) Take 1 tablet 60 tablet 6 05/16/2017 05/16/2018 Active 80 mg tablet (80 mg total) by mouth 2 (two) times a day. ELIQUIS 5 mg tablet TAKE 1 TABLET 60 tablet 2 09/06/2017 Active BY MOUTH TWICE A DAY furosemide (LASIX) Take 1 tablet 60 tablet 11 09/03/2016 09/03/2017 40 mg tablet (40 mg total) by mouth 2 (two) times a day. predniSONE Take 0.5 15 tablet 9 12/27/2016 01/26/2017 (DELTASONE) 5 mg tablets (2.5 tablet mg total) by mouth daily for 30 days. ELIQUIS 5 mg tablet TAKE 1 TABLET 60 tablet 2 01/13/2017 09/06/2017 Discontinued BY MOUTH TWICE A DAY amoxicillin-pot Take 1 tablet 28 tablet 0 03/16/2017 03/30/2017 clavulanate by mouth 2 (AUGMENTIN) 875-125 (two) times a mg per tablet day for 14 days. furosemide (LASIX) Take 1 tablet 60 tablet 0 03/16/2017 05/16/2017 Discontinued 80 mg tablet (80 mg total) by mouth 2 (two) times a day. [...] she was referred to Dr Zurita at [facility]. She performed a RLL lobectomy. Biopsy confirmed carcinoid and also DIPNECH. Last Assessment & Plan: Currently stable, seeing oncologist locally in [place] and no interventions are planned at present [...] was admitted in a local hospital in [place] She was managed in lines with CHF [...] gradient, Dr Peck suggested to add sildenafil. Onofre dugan felt better after sildenafil. States that her [...] looks. She was told to see her website/blog editor. She has gained 35 lbs since her [...] Encounters Date Type Specialty Care Team Description 09/06/2017 Refill Cardiology Temo Najera MD Med Refill 07/11/2017 Telephone Cardiology esther Conroy appointment CHERELLE Sargent 06/13/2017 Documentation Pulmonology Aristeo, faxed medical records CHERELLE Tipton 05/16/2017 Refill Pulmonology Chavo Cespedes MD 04/13/2017 Telephone Cardiology Ishmael Pendleton, Prior Authorization [place] 03/25/2017 Transcribe Orders Access Chavo Cespedes PHT (pulmonary hypertension) (Primary Dx); Acute embolism and thrombosis of deep vein of right lower extremity; Obstructive sleep apnea syndrome 03/16/2017 Office Visit Pulmonology Chavo Cespedes, Pulmonary hypertension (Primary Dx); Acute deep vein thrombosis (DVT) of right lower extremity, unspecified vein; SANG on CPAP; Abdominal distension 03/16/2017 Telephone Transplant Edson Barragan MA Prior Authorization 03/16/2017 Orders Only Pulmonology Sonya Haney, Chronic diastolic heart failure; [place] Pulmonary hypertension; Acute deep vein thrombosis (DVT) of right lower extremity, unspecified vein; SANG on CPAP; Chronic respiratory failure with hypoxia; Neuroendocrine neoplasm of lung; Chronic kidney disease, stage II (mild) 03/01/2017 Telephone Cardiology Ishmael Pendleton, Appointment [place] 01/12/2017 Refill Cardiology Temo Najera MD Med Refill after 12/28/2016 Immunizations Name Dates Previously Given Next Due [...] Taken Blood Pressure 149/69 03/16/2017 9:32 AM [employer]ITY [employer]ESSIONAL Pulse 110 03/16/2017 9:32 AM [employer]ITY PROFESSIONAL Temperature 36.6 C (97.8 F) 03/16/2017 9:32 AM SECURITY PROFESSIONAL Respiratory Rate - - Oxygen Saturation 82% 03/16/2017 9:32 AM SECURITY PROFESSIONAL Inhaled Oxygen Concentration - - Weight 169 kg (373 lb) 03/16/2017 9:32 AM SECURITY PROFESSIONAL Height 157.5 cm (5' 2") 03/16/2017 9:32 AM SECURITY PROFESSIONAL Body Mass Index 68.22 03/16/2017 9:32 AM SECURITY PROFESSIONAL Plan of Treatment Date Type Specialty Care Team Description 02/24/2018 Office Visit Cardiology Thao Peck MD [address], [address] [place] [address] Health Maintenance Due Date Last Done Comments CERVICAL CANCER SCREENING 1981 BREAST CANCER SCREENING 2010 COLON CANCER SCREENING 2010 SHINGRIX VACCINE (#1) 2010 INFLUENZA VACCINE 12/07/2017 04/01/2017, 02/27/2015, 02/14/2014, Additional history exists Procedures Procedure Name Priority Date/Time Associated Comments Diagnosis URINALYSIS SCREEN AND Routine 03/16/2017 12:56 Pulmonary Results for this MICROSCOPY, WITH PM [employer]ESSIONAL hypertension procedure are in REFLEX TO CULTURE Acute deep vein the results thrombosis (DVT) of section. right lower extremity, unspecified vein SANG on CPAP GRAM STAIN Routine 03/16/2017 12:56 Results for this PM [employer]ESSIONAL procedure are in the results section. URINE CULTURE Routine 03/16/2017 12:56 Results for this PM [employer]ESSIONAL procedure are in the results section. SMEAR REVIEW STAT 03/16/2017 10:52 Results for this AM [employer] PROFESSIONAL procedure are in the results section. ESTIMATED GFR STAT 03/16/2017 10:52 Results for this AM [employer] PROFESSIONAL procedure are in the results section. SEDIMENTATION RATE STAT 03/16/2017 10:52 Pulmonary Results for this AM [employer]ESSIONAL hypertension procedure are in Acute deep vein the results thrombosis (DVT) of section. right lower extremity, unspecified vein SANG on CPAP HC COMPLETE BLD COUNT STAT 03/16/2017 10:52 Pulmonary Results for this W/AUTO DIFF AM [employer]ESSIONAL hypertension procedure are in Acute deep vein the results thrombosis (DVT) of section. right lower extremity, unspecified vein SANG on CPAP B NATRIURETIC PEPTIDE STAT 03/16/2017 10:52 Pulmonary Results for this AM [employer]ESSIONAL hypertension procedure are in Acute deep vein the results thrombosis (DVT) of section. right lower extremity, unspecified vein SANG on CPAP COMPREHENSIVE STAT 03/16/2017 10:52 Pulmonary Results for this METABOLIC PANEL AM [employer]ITY PROFESSIONAL hypertension procedure are in Acute deep vein the results thrombosis (DVT) of section. right lower extremity, unspecified vein SANG on CPAP MAGNESIUM LEVEL STAT 03/16/2017 10:52 Chronic diastolic Results for this AM [employer]ITY PROFESSIONAL heart failure procedure are in the results section. after 12/28/2016 Results Urinalysis screen and microscopy, with reflex to culture (03/16/2017 12:56 PM) Specimen site Clean catch [facility] DEPARTMENT OF PATHOLOGY AND GENOMIC MEDICINE Color, UA Yellow [facility] DEPARTMENT OF PATHOLOGY AND GENOMIC MEDICINE Appearance, UA Cloudy [facility] DEPARTMENT OF PATHOLOGY AND GENOMIC MEDICINE Specific gravity, UA 1.020 1.001 - 1.035 [facility] DEPARTMENT OF PATHOLOGY AND GENOMIC MEDICINE pH, UA 6.0 5.0 - 8.5 [facility] DEPARTMENT OF PATHOLOGY AND GENOMIC MEDICINE Protein, UA 2+ (A) Negative [facility] DEPARTMENT OF PATHOLOGY AND GENOMIC MEDICINE Glucose, UA Negative Negative [facility] DEPARTMENT OF PATHOLOGY AND GENOMIC MEDICINE Ketones, UA Negative Negative [facility] DEPARTMENT OF PATHOLOGY AND GENOMIC MEDICINE Bilirubin, UA Negative Negative [facility] DEPARTMENT OF PATHOLOGY AND GENOMIC MEDICINE Blood, UA Negative Negative [facility] DEPARTMENT OF PATHOLOGY AND GENOMIC MEDICINE Nitrite, UA Negative Negative [facility] DEPARTMENT OF PATHOLOGY AND GENOMIC MEDICINE Urobilinogen, UA <2.0 <2.0 [facility] DEPARTMENT OF PATHOLOGY AND GENOMIC MEDICINE Leukocyte esterase, UA Large (A) Negative [facility] DEPARTMENT OF PATHOLOGY AND GENOMIC MEDICINE Epithelial cells, UA >20 /HPF [facility] DEPARTMENT OF PATHOLOGY AND GENOMIC MEDICINE WBC, UA 2 0 - 4 /HPF [facility] DEPARTMENT OF PATHOLOGY AND GENOMIC MEDICINE RBC, UA 43 (H) 0 - 2 /HPF [facility] DEPARTMENT OF PATHOLOGY AND GENOMIC MEDICINE Bacteria, UA Few None seen [facility] DEPARTMENT OF PATHOLOGY AND GENOMIC MEDICINE Yeast, UA Moderate (A) [facility] DEPARTMENT OF PATHOLOGY AND GENOMIC MEDICINE Yeast with pseudohyphae, UA None seen [facility] DEPARTMENT OF PATHOLOGY AND GENOMIC MEDICINE Hyaline casts, UA 12 /LPF [facility] DEPARTMENT OF PATHOLOGY AND GENOMIC MEDICINE Specimen Urine Performing Organization Address City/[facility] Phone Number [facility] DEPARTMENT OF PATHOLOGY AND [address] [place] [address] [facility] MEDICINE Gram stain (03/16/2017 12:56 PM) Gram stain result Rare WBC's [facility] DEPARTMENT OF PATHOLOGY Few Budding yeast, pseudohyphae present AND GENOMIC MEDICINE Many Gram positive rods Comment: Specimen Information Specimen Source: Urine Specimen Site: See UA Specimen Urine Performing Organization Address City/[facility]/Zipcode Phone Number [facility] DEPARTMENT OF PATHOLOGY AND [address] [place] [address] [facility] MEDICINE Urine culture (03/16/2017 12:56 PM) Urine culture isolate Gram negative rods [facility] DEPARTMENT OF PATHOLOGY 10-1 cfu/ml AND GENOMIC MEDICINE (A) Comment: Specimen Information Specimen Source: Urine Specimen Site: See UA Urine culture isolate Mixed Gram positive germania [facility] DEPARTMENT OF PATHOLOGY >10-5 cfu/ml AND GENOMIC MEDICINE (A) Specimen Urine Performing Organization Address City/State/Zipcode Phone Number [facility] DEPARTMENT OF PATHOLOGY AND [address] [place] [id number] GENOMIC MEDICINE Smear review (03/16/2017 10:52 AM) Platelet slide review Facundo adequate [facility] DEPARTMENT OF PATHOLOGY AND GENOMIC MEDICINE Anisocytosis Moderate [facility] DEPARTMENT OF PATHOLOGY AND GENOMIC MEDICINE Polychromasia Moderate [facility] DEPARTMENT OF PATHOLOGY AND GENOMIC MEDICINE Spherocytes Occasional [facility] DEPARTMENT OF PATHOLOGY AND GENOMIC MEDICINE Ovalocytes Moderate [facility] DEPARTMENT OF PATHOLOGY AND GENOMIC MEDICINE Enlarged platelets Moderate (A) [facility] DEPARTMENT OF PATHOLOGY AND GENOMIC MEDICINE Giant platelets Occasional [facility] DEPARTMENT OF PATHOLOGY AND GENOMIC MEDICINE Narrative Performed At CO2 result called to and read back by [facility] DEPARTMENT OF PATHOLOGY AND GENOMIC Anita Arteaga/[facility] MEDICINE 03/16/201713:12 by CK. Performing Organization Address City/[facility] Phone Number [facility] DEPARTMENT OF PATHOLOGY AND [address] [place] [phone] GENOMIC MEDICINE Estimated GFR (03/16/2017 10:52 AM) GFR Non Af Amer 57 (A) mL/min/1.73 m2 [facility] DEPARTMENT OF PATHOLOGY AND GENOMIC MEDICINE GFR Af Amer 69 mL/min/1.73 m2 [facility] DEPARTMENT OF Comment: PATHOLOGY AND GENOMIC Chronic kidney disease: <60 mL/min/1.73m2 MEDICINE Kidney failure: <15 mL/min/1.73m2 The estimated GFR is calculated from the IDMS-traceable Modification of Diet in Renal Disease Equation. The accuracy of the calculation is poor when the creatinine is normal. Calculated values >90 mL/min/1.73m2 are not reported. This equation has not been validated in children (<18 years), women, the elderly (>70 years), or ethnic groups other than Caucasians and Americans. Specimen Plasma specimen Performing Organization Address City/State/Zipcode Phone Number [facility] DEPARTMENT OF PATHOLOGY AND [address] [place] [phone] 1,2,3 [place] Sedimentation rate (03/16/2017 10:52 AM) Sedimentation rate 17 0 - 20 mm/hr [facility] DEPARTMENT OF PATHOLOGY AND GENOMIC MEDICINE Specimen Blood Narrative Performed At CO2 result called to and read back by [facility] DEPARTMENT OF PATHOLOGY AND GENOMIC Anita Arteaga/[facility] [place] MEDICINE 03/16/201713:12 by CK. Performing Organization Address City/State/Zipcode Phone Number [facility] DEPARTMENT OF PATHOLOGY AND [address] [place] [address] [facility] MEDICINE CBC with platelet and differential (03/16/2017 10:52 AM) WBC 8.01 4.50 - 11.00 k/uL [facility] DEPARTMENT OF PATHOLOGY AND GENOMIC MEDICINE RBC 4.12 (L) 4.20 - 5.50 m/uL [facility] DEPARTMENT OF PATHOLOGY AND GENOMIC MEDICINE HGB 8.4 (L) 12.0 - 16.0 g/dL [facility] DEPARTMENT OF PATHOLOGY AND GENOMIC MEDICINE HCT 31.0 (L) 37.0 - 47.0 % [facility] DEPARTMENT OF PATHOLOGY AND GENOMIC MEDICINE MCV 75.2 (L) 82.0 - 100.0 fL [facility] DEPARTMENT OF PATHOLOGY AND GENOMIC MEDICINE MCH 20.4 (L) 27.0 - 34.0 pg [facility] DEPARTMENT OF PATHOLOGY AND GENOMIC MEDICINE MCHC 27.1 (L) 31.0 - 37.0 g/dL [facility] DEPARTMENT OF PATHOLOGY AND GENOMIC MEDICINE RDW - SD 49.5 37.0 - 55.0 fL [facility] DEPARTMENT OF PATHOLOGY AND GENOMIC MEDICINE MPV 10.6 8.8 - 13.2 fL [facility] DEPARTMENT OF PATHOLOGY AND GENOMIC MEDICINE Platelet count 233 150 - 400 k/uL [facility] DEPARTMENT OF PATHOLOGY AND GENOMIC MEDICINE Nucleated RBC 0.00 /100 WBC [facility] DEPARTMENT OF PATHOLOGY AND GENOMIC MEDICINE Neutrophils 76.3 (H) 39.0 - 69.0 % [facility] DEPARTMENT OF PATHOLOGY AND GENOMIC MEDICINE Lymphocytes 9.6 (L) 25.0 - 45.0 % [facility] DEPARTMENT OF PATHOLOGY AND GENOMIC MEDICINE Monocytes 10.6 (H) 0.0 - 10.0 % [facility] DEPARTMENT OF PATHOLOGY AND GENOMIC MEDICINE Eosinophils 2.4 0.0 - 5.0 % [facility] DEPARTMENT OF PATHOLOGY AND GENOMIC MEDICINE Basophils 0.5 0.0 - 1.0 % [facility] DEPARTMENT OF PATHOLOGY AND GENOMIC MEDICINE Immature granulocytes 0.6Comment: 0.0 - 1.0 % [facility] DEPARTMENT OF "Immature PATHOLOGY AND GENOMIC granulocytes" MEDICINE (promyelocytes, myelocytes, metamyelocytes) Specimen Blood Performing Organization Address City/[facility]/Zipcode Phone Number [facility] DEPARTMENT OF PATHOLOGY AND [address] [place] [phone] [facility] B natriuretic peptide (03/16/2017 10:52 AM) BNP 432 (H) 0 - 100 pg/mL [facility] DEPARTMENT OF PATHOLOGY AND GENOMIC MEDICINE Specimen Blood Narrative Performed At CO2 result called to and read back by [facility] DEPARTMENT OF PATHOLOGY AND GENOMIC Anita Arteaga/[facility] [place] MEDICINE 03/16/201713:12 by CK. Performing Organization Address City/State/Zipcode Phone Number [facility] DEPARTMENT OF PATHOLOGY AND [address] [place] [phone] [facility] Magnesium level (03/16/2017 10:52 AM) Magnesium 1.3 (L) 1.6 - 2.6 mg/dL [facility] DEPARTMENT OF PATHOLOGY AND GENOMIC MEDICINE Specimen Plasma specimen Performing Organization Address City/[facility] Phone Number [facility] DEPARTMENT OF PATHOLOGY AND [address] [place] [phone] [facility] Comprehensive metabolic panel (03/16/2017 10:52 AM) Sodium 141 135 - 148 mEq/L [facility] DEPARTMENT OF PATHOLOGY AND GENOMIC MEDICINE Potassium 3.2 (L) 3.5 - 5.0 mEq/L [facility] DEPARTMENT OF PATHOLOGY AND GENOMIC MEDICINE Chloride 88 (L) 98 - 112 mEq/L [facility] DEPARTMENT OF PATHOLOGY AND GENOMIC MEDICINE CO2 44 (HH) 24 - 31 mEq/L [facility] DEPARTMENT OF PATHOLOGY AND GENOMIC MEDICINE Anion gap 9 7 - 15 mEq/L [facility] DEPARTMENT OF Comment: PATHOLOGY AND GENOMIC Starting from August , anion gap calculation MEDICINE no longer incorporates potassium. Please note the change. BUN 23 (H) 6 - 20 mg/dL [facility] DEPARTMENT OF PATHOLOGY AND GENOMIC MEDICINE Creatinine 1.0 (H) 0.5 - 0.9 mg/dL [facility] DEPARTMENT OF PATHOLOGY AND GENOMIC MEDICINE Glucose 123 (H) 65 - 99 mg/dL [facility] DEPARTMENT OF PATHOLOGY AND GENOMIC MEDICINE Calcium 8.9 8.3 - 10.2 mg/dL [facility] DEPARTMENT OF PATHOLOGY AND GENOMIC MEDICINE Protein 6.7 6.3 - 8.3 g/dL [facility] DEPARTMENT OF Comment: PATHOLOGY AND GENOMIC [place]ornado 4.6-7.0 g/dL MEDICINE 1 week 4.4-7.6 g/dL 7 months-1year5.1-7.3 g/dL 1-2 years5.6-7.5 g/dL >3 years6.0-8.0 g/dL 18-150 6.3-8.3 g/dL Albumin 3.1 (L) 3.5 - 5.0 g/dL [facility] DEPARTMENT OF PATHOLOGY AND GENOMIC MEDICINE A/G ratio 0.9 0.7 - 3.8 [facility] DEPARTMENT OF PATHOLOGY AND GENOMIC MEDICINE Alkaline phosphatase 97 35 - 104 U/L [facility] DEPARTMENT OF PATHOLOGY AND GENOMIC MEDICINE AST 22 10 - 35 U/L [facility] DEPARTMENT OF PATHOLOGY AND GENOMIC MEDICINE ALT 16 5 - 50 U/L [facility] DEPARTMENT OF PATHOLOGY AND GENOMIC MEDICINE Total bilirubin 0.5 0.0 - 1.2 mg/dL [facility] DEPARTMENT OF PATHOLOGY AND GENOMIC MEDICINE Specimen Plasma specimen Performing Organization Address City/State/Zipcode Phone Number [facility] DEPARTMENT OF PATHOLOGY AND [address] [place] [address] [place] MEDICINE after 12/28/2016 Insurance Payer Benefit Plan / Group Subscriber ID Type Phone Address [facility] MEDICARE AARP MEDICARE COMPLETE MCR xxxxxxxxx O Work: Sadi Santos [phone] [address], [address] [place] [address] Home: [phone] [facility]
--- NOTE | 2017-12-29 16:44 | ER ---
Nurse's Notes [facility] Name: Maegan Mortensen Age: 57 yrs Sex: Female : 1960 Arrival Date: 12/29/2017 Time: 15:01 Bed 27 Private MD: Jamie Feliz Diagnosis: Epistaxis Presentation: 12/29 15:08 Presenting complaint: Patient states: A nose bleed that started about 30 mins ago, pt sg reports using o2 continuous at home but does not have a humidifier, reports bleeding controlled with pressure. Transition of care: patient was not received from another setting of care. Onset of symptoms was December 29, 2017. Risk Assessment: Do you want to hurt yourself or someone else? Patient reports no desire to harm self or others. Initial Sepsis Screen: Does the patient meet any 2 criteria? No. Patient's initial sepsis screen is negative. Does the patient have a suspected source of infection? No. Patient's initial sepsis screen is negative. Care prior to arrival: None. 15:08 Method Of Arrival: Ambulatory sg 15:08 Acuity: VIKTORIYA 4 sg Historical: - Allergies: 15:11 NKDA; sg - Home Meds: 15:11 Albuterol Inhl [Active]; aspirin 81 mg Oral chew 1 tab once daily [Active]; Claritin sg Oral [Active]; Eliquis 5 mg Oral tab 1 tab 2 times per day [Active]; furosemide 20 mg Oral tab 1 tab 3 times per day [Active]; Lasix 40 mg Oral tab 1 tab once daily [Active]; losartan 50 mg Oral tab 1 tab once daily [Active]; Magnesium Oxide 241.3 mg Oral [Active]; omeprazole 20 mg Oral cpDR 1 cap once daily [Active]; potassium chloride 20 mEq Oral TbER 1 tab once daily [Active]; prednisone 5 mg Oral tab 1 tab once daily [Active]; promethazine-DM 6.25-15 mg/5 mL Oral syrp [Active]; sildenafil 20 mg Oral tab 1 tab [Active]; Singulair Oral [Active]; spironolactone 50 mg Oral tab 1 tab once daily [Active]; symbicort [Active]; venlafaxine 150 mg Oral tr24 1 tab once daily [Active]; - PMHx: 15:11 acid reflux; CHF; COPD; home O2 4L NC; Lung Cancer; PULMONARY HYPERTENSION; sg - Immunization history:: Adult Immunizations up to date. - Social history:: Smoking status: Patient/guardian denies using tobacco. - Ebola Screening: : Patient negative for fever greater than or equal to 101.5 degrees Fahrenheit, and additional compatible Ebola Virus Disease symptoms Patient denies exposure to infectious person Patient denies travel to an Ebola-affected area in the 21 days before illness onset No symptoms or risks identified at this time. Screenin:33 Abuse screen: Denies threats or abuse. Denies injuries from another. Nutritional mg2 screening: No deficits noted. Tuberculosis screening: No symptoms or risk factors identified. Fall Risk Gait- Weak (10 pts.). Assessment: 15:45 General: Appears in no apparent distress. uncomfortable, Behavior is calm, cooperative, mg2 appropriate for age. Pain: Denies pain. Neuro: Level of Consciousness is awake, alert, obeys commands, Oriented to person, place, time, situation. Cardiovascular: Capillary refill < 3 seconds Patient's skin is warm and dry. Respiratory: Airway is patent Respiratory effort is even, unlabored, Respiratory pattern is regular, symmetrical. GI: nose bleeding. : No signs and/or symptoms were reported regarding the genitourinary system. EENT: Nares with bleeding noted bilaterally. Derm: Skin is intact, Skin is pink, warm \T\ dry. normal. Musculoskeletal: Circulation, motion, and sensation intact. 16:14 Reassessment: Patient appears in no apparent distress at this time. Patient and/or mg2 family updated on plan of care and expected duration. Pain level reassessed. Patient is alert, oriented x 3, equal unlabored respirations, skin warm/dry/pink. nose bleeding controlled. 16:56 Reassessment: attempted to call for ride for pt Leah \T\ [phone] states that she can tl3 not leave to come here for about 45 minutes, call pts , Hugo at [phone] there was no answer, but a message was left for him to come and cotton picker his , room number provided. Vital Signs: 15:32 BP 124 / 67; Pulse 104; Resp 20; Pulse Ox 97% on Non-rebreather mask; Weight 116.57 kg; mg2 Height 5 ft. 2 in. (157.48 cm); Pain 0/10; 16:09 BP 135 / 81; Pulse 103; Resp 20; Temp 97.7(A); Pulse Ox 100% on Non-rebreather mask; mg2 Pain 0/10; 15:32 Body Mass Index 47.01 (116.57 kg, 157.48 cm) mg2 ED Course: 15:01 Patient arrived in ED. mr 15:01 Jamie Feliz MD is Private Physician. mr 15:04 Roni Lorenzana, RN is Primary Nurse. mg2 15:06 [facility] jr8 15:06 Nasir Cisneros MD is Attending Physician. jr8 15:08 Arm band placed on. sg 15:09 Triage completed. sg 15:33 Assist provider with nosebleed control using nasal clamp, rhino rocket placed for mg2 extensive packing needs, Bleeding from right nares. Set up for procedure. Performed by Joesph REGAN Bleeding decreased. Patient tolerated well. 15:47 Patient has correct armband on for positive identification. Bed in low position. Call mg2 light in reach. Side rails up X2. Door closed. Warm blanket given. Pillow given. 17:30 Patient did not have IV access during this emergency room visit. tl3 Administered Medications: No medications were administered Outcome: 16:43 Discharge ordered by . 8 17:30 Discharged to home via wheelchair. tl3 17:30 Condition: stable 17:30 Discharge instructions given to patient, family, Instructed on discharge instructions, follow up and referral plans. Demonstrated understanding of instructions, follow-up care. 17:31 Patient left the ED. tl3 Signatures: Rodney Cagle RN CHERELLE ParedesCaitlyn mr Joesph Arias PA PA [facility] Juana Joseph RN RN tl3 Roni Lorenzana, CHERELLE RN mg2 Corrections: (The following items were deleted from the chart) 16:11 16:09 Pulse 103bpm; Resp 20bpm; Pulse Ox 100% Non-rebreather mask; Temp 97.7F Axillary; mg2 Pain 0/10; mg2
--- NOTE | 2017-12-29 16:44 | EDPHYS ---
Physician Documentation [facility] Name: Maegan Mortensen Age: 57 yrs Sex: Female : 1960 Arrival Date: 12/29/2017 Time: 15:01 Bed 27 Private MD: Jamie Feliz ED Physician Nasir Cisneros HPI: 12/29 15:35 This 57 yrs old Female presents to ER via Ambulatory with complaints of Nose jr8 Bleed. 15:35 The patient presents with a nose bleed, that is apparently anterior, from both nares, jr8 occurred from an unknown cause, that is continuous moderate amount causative factors include: unknown, and the bleeding is not resolved and continues in ER. Onset: The symptoms/episode began/occurred acutely, today. Modifying factors: The symptoms are alleviated by nothing. the symptoms are aggravated by blowing nose. Associated signs and symptoms: The patient has no apparent associated signs or symptoms, Loss of consciousness: the patient experienced no loss of consciousness. Severity of symptoms: At their worst the symptoms were mild in the emergency department the symptoms are unchanged. It is unknown whether or not the patient has had similar symptoms in the past. The patient has not recently seen a physician. Historical: - Allergies: 15:11 NKDA; sg - Home Meds: 15:11 Albuterol Inhl [Active]; aspirin 81 mg Oral chew 1 tab once daily [Active]; Claritin sg Oral [Active]; Eliquis 5 mg Oral tab 1 tab 2 times per day [Active]; furosemide 20 mg Oral tab 1 tab 3 times per day [Active]; Lasix 40 mg Oral tab 1 tab once daily [Active]; losartan 50 mg Oral tab 1 tab once daily [Active]; Magnesium Oxide 241.3 mg Oral [Active]; omeprazole 20 mg Oral cpDR 1 cap once daily [Active]; potassium chloride 20 mEq Oral TbER 1 tab once daily [Active]; prednisone 5 mg Oral tab 1 tab once daily [Active]; promethazine-DM 6.25-15 mg/5 mL Oral syrp [Active]; sildenafil 20 mg Oral tab 1 tab [Active]; Singulair Oral [Active]; spironolactone 50 mg Oral tab 1 tab once daily [Active]; symbicort [Active]; venlafaxine 150 mg Oral tr24 1 tab once daily [Active]; - PMHx: 15:11 acid reflux; CHF; COPD; home O2 4L NC; Lung Cancer; PULMONARY HYPERTENSION; sg - Immunization history:: Adult Immunizations up to date. - Social history:: Smoking status: Patient/guardian denies using tobacco. - Ebola Screening: : Patient negative for fever greater than or equal to 101.5 degrees Fahrenheit, and additional compatible Ebola Virus Disease symptoms Patient denies exposure to infectious person Patient denies travel to an Ebola-affected area in the 21 days before illness onset No symptoms or risks identified at this time. ROS: 15:35 Eyes: Negative for injury, pain, redness, and discharge, Neck: Negative for injury, jr8 pain, and swelling, Cardiovascular: Negative for chest pain, palpitations, and edema, Respiratory: Negative for shortness of breath, cough, wheezing, and pleuritic chest pain, Abdomen/GI: Negative for abdominal pain, nausea, vomiting, diarrhea, and constipation, Back: Negative for injury and pain, MS/Extremity: Negative for injury and deformity, Skin: Negative for injury, rash, and discoloration, Neuro: Negative for headache, weakness, numbness, tingling, and seizure. 15:35 ENT: Positive for nose bleed, Negative for drainage from ear(s), ear pain, nasal discharge, sinus congestion, sinus pain, sore throat, difficulty swallowing, difficulty handling secretions. Exam: 15:35 Head/Face: Normocephalic, atraumatic. Eyes: Pupils equal round and reactive to light, jr8 extra-ocular motions intact. Lids and lashes normal. Conjunctiva and sclera are non-icteric and not injected. Cornea within normal limits. Periorbital areas with no swelling, redness, or edema. Neck: Trachea midline, no thyromegaly or masses palpated, and no cervical lymphadenopathy. Supple, full range of motion without nuchal rigidity, or vertebral point tenderness. No Meningismus. Cardiovascular: Regular rate and rhythm with a normal S1 and S2. No gallops, murmurs, or rubs. Normal PMI, no JVD. No pulse deficits. Respiratory: Lungs have equal breath sounds bilaterally, clear to auscultation and percussion. No rales, rhonchi or wheezes noted. No increased work of breathing, no retractions or nasal flaring. Skin: Warm, dry with normal turgor. Normal color with no rashes, no lesions, and no evidence of cellulitis. MS/ Extremity: Pulses equal, no cyanosis. Neurovascular intact. Full, normal range of motion. Neuro: Awake and alert, GCS 15, oriented to person, place, time, and situation. Cranial nerves II-XII grossly intact. Motor strength 5/5 in all extremities. Sensory grossly intact. Cerebellar exam normal. Normal gait. 15:35 ENT: Exam is negative for earache, ear discharge, TM abnormalities, sinus tenderness, pharyngitis, dysphagia, exudate, abnormal voice, Nose: External nose: no obvious acute abnormality, Nasal septum: is midline, Nasal mucosa: moist, Turbinates: are normal, bleeding, is noted from both nares, no septal hematoma is appreciated, clotted blood, in left nare. Vital Signs: 15:32 BP 124 / 67; Pulse 104; Resp 20; Pulse Ox 97% on Non-rebreather mask; Weight 116.57 kg; mg2 Height 5 ft. 2 in. (157.48 cm); Pain 0/10; 16:09 BP 135 / 81; Pulse 103; Resp 20; Temp 97.7(A); Pulse Ox 100% on Non-rebreather mask; mg2 Pain 0/10; 15:32 Body Mass Index 47.01 (116.57 kg, 157.48 cm) mg2 MDM: 15:06 Patient medically screened. [facility] 16:40 Data reviewed: vital signs, nurses notes, and as a result, I will discharge patient. jr8 Data interpreted: Pulse oximetry: on room air is 100 %. Interpretation: normal. Counseling: I had a detailed discussion with the patient and/or guardian regarding: the historical points, exam findings, and any diagnostic results supporting the discharge/admit diagnosis, the need for outpatient follow up, an ENT specialist, a family practitioner. Response to treatment: the patient's symptoms have resolved after treatment. ED course: Nose bleed controlled with Rhino Rocket on right side. Left nare without any bleeding. Patient has pulmonary HTN. Requires 24 hour oxygen and will not be able to use NC at home. Tolerates Fas mask very well on 8 lpm. Concentrator at home will go up to 10 lpm per patient. Will send home on facemask. explained to her if at anytime she feels like she is not getting enough oxygen or her pulse ox says that she is not maintaining. That she could come back immediately for admission. Dr. Feliz was consulted on this as well and is good with this plan. Patient to return in 48 hours to remove packing . 12/29 15:25 Order name: Oxygen; Complete Time: 15:34 jr8 Administered Medications: No medications were administered Disposition: 12/29/17 16:43 Discharged to Home. Impression: Epistaxis. - Condition is Stable. - Discharge Instructions: Nosebleed, Adult. - Medication Reconciliation Form, Thank You Letter, Antibiotic Education, Prescription Opioid Use form. - Follow up: Emergency Department; When: 48 Hours; Reason: Recheck today's complaints, Continuance of care, Re-evaluation by your physician. - Problem is new. - Symptoms have improved. Addendum: 12/31/2017 08:09 Co-signature as Attending Physician, Nasir Cisneros MD I agree with the assessment and w a plan of care. Signatures: Rodney Cagle RN RN Joesph Brambila PA PA jr8 Nasir Cisneros MD MD pr Juana Joseph, CHERELLE RN tl3 Corrections: (The following items were deleted from the chart) 12/29 17:31 16:43 12/29/2017 16:43 Discharged to Home. Impression: Epistaxis. Condition is Stable. tl3 Forms are Medication Reconciliation Form, Thank You Letter, Antibiotic Education, Prescription Opioid Use. Follow up: Emergency Department; When: 48 Hours; Reason: Recheck today's complaints, Continuance of care, Re-evaluation by your physician. Problem is new. Symptoms have improved. jr8
[2017-12-29 17:44] VITALS: BP 135/81; TEMP 97.7; O2SAT 100
== END 2017-12-29 17:31 | disposition home or self-care (01) ==
LOC: ER 14:59
DX: R04.0 Epistaxis (principal); I50.9 Heart failure, unspecified; J44.9 Chronic obstructive pulmonary disease, unspecified; Z85.118 Personal history of other malignant neoplasm of bronchus and lung; Z79.01 Long term (current) use of anticoagulants; Z79.82 Long term (current) use of aspirin
CPT/HCPCS: 30901; 99283

== ENCOUNTER 2018-05-11 02:47 | Emergency (ER) | payer MEDICARE ==
--- OUTSIDE RECORDS SUMMARY | 2018-05-11 02:49 | XMS REPORT | Clinical Summary ---
:1960 Author Organization [facility] Address [address] [place] [address] Care Team Providers Name Role Phone Angela Dee MD Primary Care Provider Allergies No Known Allergies Medications Medication Sig Dispensed Refills Start Date End Date Status aspirin (ECOTRIN) Take 81 mg by 0 Active 81 MG enteric mouth daily. coated tablet omeprazole Take 20 mg by 0 Active (PriLOSEC) 20 MG mouth daily. capsule magnesium oxide Take 400 mg 0 Active (MAG-OX) 400 mg by mouth tablet [...] mcg/actuation inhaler pantoprazole Take 20 mg by 0 Active (PROTONIX) 20 MG EC mouth daily. tablet LORATADINE Take by 0 Active (CLARITIN ORAL) mouth. linaclotide Take 145 mcg 0 Active (LINZESS) 145 mcg by mouth capsule [...] 09/06/2017 Discontinued BY MOUTH TWICE A DAY furosemide (LASIX) [...] she was referred to Dr Zurita at [facility]. She performed a RLL lobectomy. Biopsy confirmed carcinoid and also DIPNECH. Last Assessment & Plan: Currently stable, seeing oncologist locally in [place] and no interventions are planned at present [...] was admitted in a local hospital in [place] She was managed in lines with CHF [...] looks. She was told to see her vice president biostatistics. She has gained 35 lbs since her [...] Najera MD Med Refill 07/11/2017 Telephone Cardiology Rosetta Conroy RN reschedule appointment 06/13/2017 Documentation Pulmonology Saeed Alberts RN faxed medical records 05/16/2017 Refill Pulmonology Chavo Cespedes MD after 05/10/2017 Immunizations Name Dates Previously Given Next Due [...] Assigned at Date Recorded Not on file Job Start Date Occupation Industry Not on file Not on file Not on file Travel History Travel Start Travel End No recent travel history available. Last Filed Vital Signs Not on file Plan of Treatment Date Type Specialty Care Team Description 06/06/2018 Office Visit Cardiology Thao Peck MD [address] [facility] [address] [place] [id number] Health Maintenance Due Date Last Done Comments CERVICAL CANCER SCREENING 1981 BREAST CANCER SCREENING 2010 COLON CANCER SCREENING 2010 SHINGLES VACCINES (1 of 2) 2010 INFLUENZA VACCINE 12/07/2017 02/27/2015, 02/14/2014, 03/06/2013 Results Not on fileafter 05/10/2017 Insurance Payer Benefit Plan / Group Subscriber ID Type Phone Address [facility] MED[facility] AARP MEDICARE COMPLETE MCR xxxxxxxxx [address]MO [address] (Home) [place] [address] (Work) Advance Directives Patient has advance care planning documents on file. For more information, please contact:[place] [address]
[2018-05-11 03:31] LABS: Protime INR 1.23
[2018-05-11 03:32] LABS: Absolute Monocytes 2.9 K/uL (0.1-1.3); Absolute Neutrophil 33.4 K/uL (1.8-8.0); Basophils % 0.1 % (0-1.3); Hematocrit 37.6 % (36.0-45.0); Lymphocytes % 2.8 % (15.3-44.8); MPV 9.1 fL (7.6-11.3); Monocytes % 7.8 % (3.3-12.3); RBC Red Blood Cell Count 4.81 M/uL (3.86-4.86)
[2018-05-11 03:44] LABS: Blood Gas Oxyhemoglobin 93.9 % (94-97); Blood O2 Saturation 96.8 % (92-98.5)
[2018-05-11 03:51] LABS: Albumin 3.5 g/dL (3.4-5.0); Bilirubin Direct 0.5 mg/dL (0-0.2); Bilirubin Total 1.3 mg/dL (0.2-1.0); Potassium 2.7 mmol/L (3.5-5.1); Troponin (Emerg Dept Use Only) 0.03 ng/mL (0.0-0.045)
[2018-05-11 03:52] LABS: Magnesium 1.1 mg/dL (1.8-2.4)
[2018-05-11] MEDS ORDERED: Levofloxacin 750mg IV 750 MG/150 ML BAG IV ONE (04:38)
[2018-05-11] MEDS ORDERED: CEFTRIAXONE/SWI 1gm 1 GM/10 ML SYR ONE (04:39)
[2018-05-11 04:56] LABS: Blood Morphology Comment NOT SEEN (NOT SEEN); Platelet Estimate ADEQ
[2018-05-11] MEDS ORDERED: MAGNESIUM SULFATE 1 gm IVPB 1 GM/100 ML BAG IV ONE (05:12)
[2018-05-11] MEDS ORDERED: KCL 20 MEQ/100 mL IVPB 0 MEQ/0 ML BAG IV ONE (05:13)
[2018-05-11] MEDS ORDERED: NS KCL 20MEQ 1,000 ML IV ONE (05:17)
--- NOTE | 2018-05-11 05:28 | EDPHYS ---
Physician Documentation [facility] Name: Maegan Mortensen Age: 57 yrs Sex: Female : 1960 Arrival Date: 05/11/2018 Time: 02:48 Bed 2 Private MD: ED Physician Arturo Wayne HPI: 05/11 05:28 This 57 yrs old Female presents to ER via EMS with complaints of Shortness Of tw4 Breath. 05:28 The patient has shortness of breath at rest. Onset: The symptoms/episode began/occurred tw4 today. Duration: The symptoms are continuous, and are steadily getting worse. The patient's shortness of breath is aggravated by exertion, is alleviated by nothing. Associated signs and symptoms: The patient has no apparent associated signs or symptoms. The patient has not experienced similar symptoms in the past. Historical: - Allergies: 02:54 NKDA; ca1 - Home Meds: 03:49 Eliquis 5 mg Oral tab 1 tab 2 times per day [Active]; omeprazole 20 mg Oral cpDR 1 cap ca1 once daily [Active]; spironolactone 25 mg oral tab 1 tab once daily [Active]; furosemide 80 mg oral tab 1 tab 2 times per day [Active]; sildenafil 20 mg Oral tab 1 tab 3 times per day [Active]; venlafaxine 150 mg Oral tr24 1 tab once daily [Active]; acetazolamide 250 mg Oral tab 1 tab 2 times per day [Active]; loratadine 10 mg oral tab 1 tab once daily [Active]; montelukast 10 mg oral tab 1 tab once daily [Active]; Linzess 145 mcg oral cap 1 cap prn for constipation [Active]; - PMHx: 02:54 acid reflux; COPD; CHF; Lung Cancer; PULMONARY HYPERTENSION; home O2 4L NC; ca1 - Immunization history:: Flu vaccine is not up to date. - Social history:: Smoking status: Patient/guardian denies using tobacco. - Ebola Screening: : No symptoms or risks identified at this time. ROS: 05:28 Constitutional: Negative for fever, chills, and weight loss, Cardiovascular: Negative tw4 for chest pain, palpitations, and edema, Abdomen/GI: Negative for abdominal pain, nausea, vomiting, diarrhea, and constipation, Back: Negative for injury and pain, MS/Extremity: Negative for injury and deformity. 05:28 Skin: Negative for injury, rash, and discoloration, Neuro: Negative for headache, weakness, numbness, tingling, and seizure. 05:28 Respiratory: Positive for dyspnea on exertion, shortness of breath. Exam: 05:28 Constitutional: This is a well developed, well nourished patient who is awake, alert, tw4 and in no acute distress. Head/Face: Normocephalic, atraumatic. Chest/axilla: Normal chest wall appearance and motion. Nontender with no deformity. No lesions are appreciated. Cardiovascular: Regular rate and rhythm with a normal S1 and S2. No gallops, murmurs, or rubs. Normal PMI, no JVD. No pulse deficits. Respiratory: Lungs have equal breath sounds bilaterally, clear to auscultation and percussion. No rales, rhonchi or wheezes noted. No increased work of breathing, no retractions or nasal flaring. Abdomen/GI: Soft, non-tender, with normal bowel sounds. No distension or tympany. No guarding or rebound. No evidence of tenderness throughout. Back: No spinal tenderness. No costovertebral tenderness. Full range of motion. MS/ Extremity: Pulses equal, no cyanosis. Neurovascular intact. Full, normal range of motion. Vital Signs: 02:54 BP 115 / 53; Pulse 144; Resp 34; Temp 98.2; Pulse Ox 68% on R/A; Weight 167.83 kg; ca1 Height 5 ft. 6 in. (167.64 cm); Pain 3/10; 03:19 BP 106 / 75; Pulse 132; Resp 37; Pulse Ox 95% on BiPAP; ca1 03:50 BP 119 / 83; Pulse 132; Resp 31; Pulse Ox 99% on BiPAP; ca1 04:47 BP 109 / 90; Pulse 124; Resp 31; Pulse Ox 95% on BiPAP; ca1 05:30 BP 114 / 96; Pulse 125; Resp 29; Pulse Ox 100% on BiPAP; ca1 05:55 BP 109 / 59; Pulse 112; Resp 28; Pulse Ox 99% on BiPAP; ca1 06:15 BP 101 / 58; Pulse 111; Resp 24; Pulse Ox 98% on BiPAP; ca1 06:54 BP 126 / 79; Pulse 109; Resp 27; Pulse Ox 98% on BiPAP; ca1 02:54 Body Mass Index 59.72 (167.83 kg, 167.64 cm) ca1 MDM: 03:20 Patient medically screened. tw4 05:28 Differential diagnosis: Anemia pneumonia. Data reviewed: vital signs, nurses notes. Data interpreted: Pulse oximetry: Interpretation:. Test interpretation: by ED physician or midlevel provider: ECG. Sepsis 6 hour Focused Exam: Heart: S1,S2 auscultated. S3 auscultated. Lungs: Rhonchi noted. Capillary refill examination performed. Capillary refill noted to be > 2 seconds. Skin examination performed. Skin noted to be diaphoretic. Current patient vital signs reviewed: Yes. Passive leg raise examination performed. Counseling: I had a detailed discussion with the patient and/or guardian regarding: the historical points, exam findings, and any diagnostic results supporting the discharge/admit diagnosis. Special discussion: I discussed with the patient/guardian in detail that at this point there is no indication for admission to the hospital. It is understood, however, that if the symptoms persist or worsen the patient needs to return immediately for re-evaluation. 05/11 02:50 Order name: Basic Metabolic Panel; Complete Time: 04:59 tl2 05/11 04:59 Interpretation: Normal except: K 2.7; CL 94; CO2 33; GLUC 196; BUN 23; CRE 1.38; GFR 39.05/11 02:50 Order name: CBC with Diff; Complete Time: 04:59 tl2 05/11 05:00 Interpretation: Normal except: WBC 37.4; HGB 11.9; MCV 78.2; MCH 24.6; MCHC 31.5; LYM% tw4 2.8; KARLI% 89.3; RDW 16.3; NEUT A 33.4. 05/11 02:50 Order name: LFT's; Complete Time: 04:59 tl2 05/11 05:00 Interpretation: Normal except: ALK 124; BILIT 1.3; BILID 0.5; GLOB 4.5; A/G 0.8. 05/11 02:50 Order name: Magnesium; Complete Time: 04:59 tl2 05/11 05:01 Interpretation: Normal except: MG 1.1. 05/11 02:50 Order name: NT PRO-BNP; Complete Time: 04:59 tl2 05/11 05:01 Interpretation: Normal except: NT PRO-BNP 2585. tw4 05/11 02:50 Order name: PT-INR; Complete Time: 04:59 tl2 05/11 05:01 Interpretation: Normal except: PT 14.6. tw4 05/11 02:50 Order name: Troponin (emerg Dept Use Only); Complete Time: 04:59 tl2 05/11 05:01 Interpretation: Within normal limits: TROPED 0.03. tw4 05/11 02:50 Order name: XRAY Chest (1 view) 2 05/11 02:50 Order name: Lactate; Complete Time: 04:21 tl2 05/11 05:02 Interpretation: Normal except: LAC 2.5. tw4 05/11 02:50 Order name: Procalcitonin; Complete Time: 04:59 tl2 05/11 05:01 Interpretation: Normal except: Procalcitonin 0.54. tw4 05/11 02:50 Order name: Blood Culture Adult (2) tl2 05/11 02:53 Order name: Arterial Blood Gas; Complete Time: 04:59 ak1 05/11 02:53 Order name: BIPAP ak1 05/11 03:38 Order name: Manual Differential; Complete Time: 04:59 EDMS 05/11 02:50 Order name: EKG; Complete Time: 02:52 tl2 05/11 02:50 Order name: Cardiac monitoring; Complete Time: 02:52 tl2 05/11 02:50 Order name: EKG - Nurse/Tech; Complete Time: 02:52 tl2 05/11 02:50 Order name: IV Saline Lock; Complete Time: 02:52 tl2 05/11 02:50 Order name: Labs collected and sent; Complete Time: 02:53 tl2 05/11 02:50 Order name: O2 Per Protocol; Complete Time: 02:53 tl2 05/11 02:50 Order name: O2 Sat Monitoring; Complete Time: 02:53 tl2 EC:45 Rate is 141 beats/min. Rhythm is irregularly irregular, A fib. QRS [place] is Normal. VT tw4 interval is normal. QRS interval is normal. QT interval is normal. No Q waves. T waves are Normal. No ST changes noted. Clinical impression: Atrial Fibrillation. Interpreted by me. Reviewed by me. Administered Medications: 04:30 Drug: Rocephin 1 grams Route: IV; Rate: calculated rate; Site: right antecubital; ca1 06:25 Follow up: Response: No adverse reaction; IV Status: Completed infusion ca1 04:40 CANCELLED (Duplicate Order): Rocephin - (cefTRIAXone) 1 grams IVPB once over 30 mins; ca1 (mix in 50 mL NS) 04:41 Drug: LevaQUIN 750 mg Volume: 150 ml; Route: IVPB; Infused Over: 90 mins; Site: right ca1 antecubital; 06:24 Follow up: Response: No adverse reaction; IV Status: Completed infusion ca1 05:20 Drug: Potassium Chloride 20 mEq Route: IV; Rate: calculated rate; Site: right ca1 antecubital; 06:25 Follow up: IV Status: Infusion continued upon transfer ca1 05:45 Drug: Cardizem 10 mg Route: IVP; Site: right antecubital; ca1 06:24 Follow up: Response: No adverse reaction ca1 06:14 Drug: Magnesium Sulfate 1 grams Route: IVPB; Infused Over: 1 hrs; Site: right ca1 antecubital; 06:25 Follow up: IV Status: Infusion continued upon transfer ca1 Disposition: 05/11/18 05:27 Transfer ordered to [facility]. Diagnosis are Pneumonia due to other specified infectious organisms, Acute and chronic respiratory failure with hypoxia. - Reason for transfer: Higher level of care. - Accepting physician is Dr Torres. - Condition is Stable. - Problem is new. - Symptoms are unchanged. Signatures: Dispatcher [employer] Yvrose Godfrey RN RN Brittny Murphy RN RN tl2 Arturo Wayne MD MD tw4 Francisca Kinsey RN RN ca1 Corrections: (The following items were deleted from the chart) 04:40 04:03 Rocephin - (cefTRIAXone) 1 grams IVPB once over 30 mins; (mix in 50 mL NS) ca1 ordered. tw4 04:40 04:38 Rocephin - (cefTRIAXone) 1 grams IVPB once over 30 mins; (mix in 50 mL NS) given. ca1 ca1 04:40 04:40 Rocephin - (cefTRIAXone) 1 grams IVPB once over 30 mins; (mix in 50 mL NS) ca1 ordered. ca1 07:52 05:27 05/11/2018 05:27 Transfer ordered to [facility]. Diagnosis is ch Pneumonia due to other specified infectious organisms; Acute and chronic respiratory failure with hypoxia. Reason for transfer: Higher level of care. Accepting physician is Dr Torres. Condition is Stable. Problem is new. Symptoms are unchanged. tw4
--- NOTE | 2018-05-11 05:28 | ER ---
Nurse's Notes [facility] Name: Maegan Mortensen Age: 57 yrs Sex: Female : 1960 Arrival Date: 05/11/2018 Time: 02:48 Bed 2 Private MD: Diagnosis: Pneumonia due to other specified infectious organisms;Acute and chronic respiratory failure with hypoxia Presentation: 05/11 02:48 Presenting complaint: EMS states: called by patient for shallow breathing, , ca1 wheezing and fever at home. Transition of care: patient was not received from another setting of care. Onset of symptoms was May 10, 2018 at 14:00. Risk Assessment: Do you want to hurt yourself or someone else? Patient reports no desire to harm self or others. Initial Sepsis Screen: Does the patient meet any 2 criteria? RR > 20 per min. Systolic BP < 90 mmHg. HR > 90 bpm. Does the patient have a suspected source of infection? Yes: Productive cough/pneumonia. Care prior to arrival: Medication(s) given: Albuterol Neb x 1, Atrovent Neb x 1, Solu-medrol IV initiated. 22 GA, in the right hand. 02:48 Method Of Arrival: EMS: [facility] ca1 02:48 Acuity: VIKTORIYA 2 ca1 02:48 Care prior to arrival: Glucose check: 162. ca1 Historical: - Allergies: 02:54 NKDA; ca1 - Home Meds: 03:49 Eliquis 5 mg Oral tab 1 tab 2 times per day [Active]; omeprazole 20 mg Oral cpDR 1 cap ca1 once daily [Active]; spironolactone 25 mg oral tab 1 tab once daily [Active]; furosemide 80 mg oral tab 1 tab 2 times per day [Active]; sildenafil 20 mg Oral tab 1 tab 3 times per day [Active]; venlafaxine 150 mg Oral tr24 1 tab once daily [Active]; acetazolamide 250 mg Oral tab 1 tab 2 times per day [Active]; loratadine 10 mg oral tab 1 tab once daily [Active]; montelukast 10 mg oral tab 1 tab once daily [Active]; Linzess 145 mcg oral cap 1 cap prn for constipation [Active]; - PMHx: 02:54 acid reflux; COPD; CHF; Lung Cancer; PULMONARY HYPERTENSION; home O2 4L NC; ca1 - Immunization history:: Flu vaccine is not up to date. - Social history:: Smoking status: Patient/guardian denies using tobacco. - Ebola Screening: : No symptoms or risks identified at this time. Screenin:04 Abuse screen: Denies threats or abuse. Denies injuries from another. Nutritional ca1 screening: No deficits noted. Tuberculosis screening: No symptoms or risk factors identified. 03:05 Fall Risk Ambulatory Aid- Crutches/Cane/Walker (15 pts). ca1 Assessment: 03:04 General: Appears distressed, uncomfortable, ill, obese, Behavior is cooperative, ca1 restless. Pain: Complains of pain in head. Pain currently is 3 out of 10 on a pain scale. Neuro: Level of Consciousness is awake, alert, obeys commands, Oriented to person, place, time, situation. Cardiovascular: Heart tones S1 S2 Capillary refill < 3 seconds Rhythm is Tachycardia. Respiratory: Airway is patent Trachea midline Respiratory effort is even, labored, Respiratory pattern is hyperventilation Breath sounds with wheezes bilaterally. Onset: The symptoms/episode began/occurred yesterday. Respiratory: Reports shortness of breath at rest since yesterday around 1400H. GI: Abdomen is. GI: Abdomen is round non-distended, obese, Bowel sounds present X 4 quads. Abd is soft and non tender X 4 quads. : No signs and/or symptoms were reported regarding the genitourinary system. EENT: No signs and/or symptoms were reported regarding the EENT system. Derm: Skin is intact, Skin is pink, warm \T\ dry. Musculoskeletal: Circulation, motion, and sensation intact. 03:17 Reassessment: Patient appears in no apparent distress at this time. Patient on BiPAP, ca1 reports feeling tired and sleeping at home most of the time. Appears lethargic. 03:50 Reassessment: Patient appears in no apparent distress at this time. Patient is alert, ca1 oriented x 3, equal unlabored respirations, skin warm/dry/pink. patient sleeping. 04:47 Reassessment: Patient appears in no apparent distress at this time. Patient and/or ca1 family updated on plan of care and expected duration. Pain level reassessed. Patient is alert, oriented x 3, equal unlabored respirations, skin warm/dry/pink. Requested to have her called at 0530H. 05:30 Reassessment: Patient appears in no apparent distress at this time. Patient and/or ca1 family updated on plan of care and expected duration. Pain level reassessed. Patient is alert, oriented x 3, equal unlabored respirations, skin warm/dry/pink. Patient states feeling better. 06:15 Reassessment: Patient appears in no apparent distress at this time. Patient and/or ca1 family updated on plan of care and expected duration. Pain level reassessed. Report given to Alesia Blair RN of [facility]. Awaiting EMS. 07:30 Reassessment: Patient appears in no apparent distress at this time. No changes from ch previously documented assessment. Patient and/or family updated on plan of care and expected duration. Pain level reassessed. Vital Signs: 02:54 BP 115 / 53; Pulse 144; Resp 34; Temp 98.2; Pulse Ox 68% on R/A; Weight 167.83 kg; ca1 Height 5 ft. 6 in. (167.64 cm); Pain 3/10; 03:19 BP 106 / 75; Pulse 132; Resp 37; Pulse Ox 95% on BiPAP; ca1 03:50 BP 119 / 83; Pulse 132; Resp 31; Pulse Ox 99% on BiPAP; ca1 04:47 BP 109 / 90; Pulse 124; Resp 31; Pulse Ox 95% on BiPAP; ca1 05:30 BP 114 / 96; Pulse 125; Resp 29; Pulse Ox 100% on BiPAP; ca1 05:55 BP 109 / 59; Pulse 112; Resp 28; Pulse Ox 99% on BiPAP; ca1 06:15 BP 101 / 58; Pulse 111; Resp 24; Pulse Ox 98% on BiPAP; ca1 06:54 BP 126 / 79; Pulse 109; Resp 27; Pulse Ox 98% on BiPAP; ca1 02:54 Body Mass Index 59.72 (167.83 kg, 167.64 cm) ca1 ED Course: 02:48 Patient arrived in ED. ca1 02:50 Inserted saline lock: 20 gauge in right antecubital area, using aseptic technique. ca1 ,using aseptic technique. by Billie Veloz RN Blood collected. 02:50 Initial lab(s) drawn, sent to lab. First set of blood cultures drawn By Billie Veloz RN.ca1 02:50 Oxygen administration via nasal cannula \T\ 5L/min Response to oxygen therapy: SP02 at ca1 71%. 02:51 Oxygen administration via non-rebreather mask \T\ 15L/min Response to oxygen therapy: ca1 SP02 at 98%. 02:52 Triage completed. ca1 02:54 Arm band placed on right wrist. EKG completed in triage. Results shown to MD. ca1 03:00 X-ray completed. Portable x-ray completed in exam room. Patient tolerated procedure kw well. 03:04 Patient has correct armband on for positive identification. Placed in gown. Bed in low ca1 position. Call light in reach. Side rails up X2. front desk monitor on. Pulse ox on. NIBP on. Lights dimmed. Warm blanket given. 03:08 XRAY Chest (1 view) In Process Unspecified. EDMS 03:19 Arturo Wayne MD is Attending Physician. tw4 03:24 Francisca Kinsey, RN is Primary Nurse. ca1 03:37 Notified ED physician of a critical lab result(s). wbc 37.4. fc 03:51 Notified ED physician of a critical lab result(s). pot 2.7, mg 1.1. fc 04:56 Notified ED physician of a critical lab result(s). bands of 12%. fc 06:15 No provider procedures requiring assistance completed. Patient transferred, IV remains ca1 in place. 07:50 Primary Nurse role handed off by Francisca Kinsey, CHERELLE 07:50 Yvrose Phillips, CHERELLE is Primary Nurse. Administered Medications: 04:30 Drug: Rocephin 1 grams Route: IV; Rate: calculated rate; Site: right antecubital; ca1 06:25 Follow up: Response: No adverse reaction; IV Status: Completed infusion ca1 04:40 CANCELLED (Duplicate Order): Rocephin - (cefTRIAXone) 1 grams IVPB once over 30 mins; ca1 (mix in 50 mL NS) 04:41 Drug: LevaQUIN 750 mg Volume: 150 ml; Route: IVPB; Infused Over: 90 mins; Site: right ca1 antecubital; 06:24 Follow up: Response: No adverse reaction; IV Status: Completed infusion ca1 05:20 Drug: Potassium Chloride 20 mEq Route: IV; Rate: calculated rate; Site: right ca1 antecubital; 06:25 Follow up: IV Status: Infusion continued upon transfer ca1 05:45 Drug: Cardizem 10 mg Route: IVP; Site: right antecubital; ca1 06:24 Follow up: Response: No adverse reaction ca1 06:14 Drug: Magnesium Sulfate 1 grams Route: IVPB; Infused Over: 1 hrs; Site: right ca1 antecubital; 06:25 Follow up: IV Status: Infusion continued upon transfer ca1 Outcome: 05:27 ER care complete, transfer ordered by . tw4 06:20 Transferred to [facility], Transfer form completed. X-rays sent w/ ca1 patient. 06:20 Condition: stable ca1 06:20 Instructed on the need for transfer, Demonstrated understanding of instructions. 07:52 Patient left the ED. ch Signatures: Dispatcher [employer] EDMS Yvrose Phillips RN RN Carline Mckoy RN RN fc Whitley, Kimberlee kw Wadley, Terrence, MD MD tw4 Francisca Kinsey RN RN ca1 Corrections: (The following items were deleted from the chart) 03:22 03:17 Reassessment: Patient appears in no apparent distress at this time. Patient ca1 and/or family updated on plan of care and expected duration. Pain level reassessed. Patient is alert, oriented x 3, equal unlabored respirations, skin warm/dry/pink. Patient on BiPAP, reports feeling tired and sleeping at home most of the time. ca1 03:33 02:54 BP 115 / 53; Pulse 144bpm; Resp 34bpm; Pulse Ox 68% RA; Temp 98.2F; Height 5 ft. ca1 6 in.; Pain 3/10; ca1 04:40 04:27 Rocephin - (cefTRIAXone) 1 grams IVPB in right antecubital over 30 mins ca1 ca1
[2018-05-11] MEDS ORDERED: dilTIAZem HCl 25 MG/5 ML VIAL IV ONE (05:58)
--- NOTE | 2018-05-11 07:35 | EKG ---
Test Date: 2018-05-11 Test Time: 02:53:00 Band Tumbler: SANDEEP MEASUREMENT RESULTS: Intervals: Rate: 141 TX: QRSD: 82 QT: 354 QTc: 542 [place]: P: TX: QRS: 109 T: 42 INTERPRETIVE STATEMENTS: Atrial fibrillation with rapid ventricular response Right axis Non specific ST and T abnormality Abnormal ECG Compared to ECG 08/03/2017 09:52:07 Sinus rhythm no longer present Myocardial infarct finding no longer present Electronically Signed On 05-11-18 07:34:11 STRIPPING SHOVEL OILER by Varghese King
[2018-05-11 07:57] VITALS: TEMP 98.2
[2018-05-11 08:04] VITALS: O2SAT 98
[2018-05-11 08:05] VITALS: BP 126/79
--- NOTE | 2018-05-11 09:24 | RAD REPORT ---
EXAM DESCRIPTION: RAD - Chest Single View - 05/11/2018 3:04 am CLINICAL HISTORY: Shortness of breath, cough, wheezing A preliminary report was provided at the time of the study and reviewed prior to final report. COMPARISON: Portable chest July 2017 TECHNIQUE: AP portable chest image was obtained 0248 hours . FINDINGS: Lung volumes are low. No significant left lung field finding identifiable. No left-sided p leural effusion or pneumothorax. Trachea is midline. Focal consolidation is seen in the lateral right midlung field. There is masslike density filling the right side of the mediastinum and hilum. Minimal stranding is seen at the right base near the diaphr agm. Heart and vasculature are normal. No measurable pleural effusion and no pneumothorax. No acute bony abnormality seen. No acute aortic findings suspected. IMPRESSION: Masslike density at the right hilum with peripheral right midlung field consolidation. Primary differential consideration is a right hilar malignant mass with postobstructive pneumonia in the right midlung field. Central masslike consolidated pneumonia with peripheral pneumonia possible a s well. Contrast-enhanced CT chest imaging is the recommendation.
== END 2018-05-11 07:52 | disposition short-term general hospital (02) ==
LOC: ER 02:47
DX: J16.8 Pneumonia due to other specified infectious organisms (principal); I27.20 Pulmonary hypertension, unspecified; I50.9 Heart failure, unspecified; J44.9 Chronic obstructive pulmonary disease, unspecified; Z85.118 Personal history of other malignant neoplasm of bronchus and lung
CPT/HCPCS: 36415; 71045; 80048; 80076; 82805; 83605; 83735; 83880; 84145; 84484; 85025; 85610; 87040 ×2; 93005; 94660; 96365; 96367; 96375; 99285; J0696; J3475